=== PATIENT | female | born 1975 | race Caucasian/White ===

== ENCOUNTER 2017-04-07 22:21 | Emergency (ER) | payer MEDICAID, MEDICARE ==
[2017-04-07] MEDS ORDERED: Diazepam TAB(*) 2 MG PO ONE (23:19)
[2017-04-07] MEDS ORDERED: Ondansetron INJ* 2 MG/ML VIAL IV ONE (23:20)
[2017-04-07 23:52] LABS: Hematocrit 47 % (35-47); Hemoglobin 15.9 g/dl (12.0-16.0); Mean Corpuscular HGB Conc 34 g/dl (31-36); Mean Corpuscular Hemoglobin 29 pg (27-31); Mean Corpuscular Volume 86 fL (80-97); Mean Platelet Volume 8 um3 (7.4-10.4); Red Blood Count 5.54 10^6/ul (4.0-5.4); Red Cell Distribution Width 13 % (10.5-15)
[2017-04-08 00:07] LABS: Albumin 4.2 g/dL (3.2-5.2); BUN/Creatinine Ratio 12.4 (8-20); Calcium 9.7 mg/dL (8.6-10.3); Globulin 2.7 g/dL (2-4); Potassium 3.9 mmol/L (3.5-5.0); Total Bilirubin 0.4 mg/dL (0.2-1.0); Total Protein 6.9 g/dL (6.4-8.9)
[2017-04-08] MEDS ORDERED: Iohexol 300* (CONTRAST) 10 ML SDV IV ONE (00:15)
[2017-04-08 02:22] VITALS: BP 106/58
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
== END 2017-04-08 03:09 | disposition home or self-care (01) ==
LOC: ED 22:21
DX: R07.81 Pleurodynia (principal); V89.2XXA Person injured in unspecified motor-vehicle accident, traffic, initial encounter; Y93.9 Activity, unspecified; Y92.9 Unspecified place or not applicable
CPT/HCPCS: 36415; 70450; 71260; 72125; 74177; 80053; 85025; 96374; 99282; A9270-GY; J2405; Q9967

== ENCOUNTER 2017-07-20 15:24 | Emergency (ER) | payer MEDICARE, MEDICAID ==
[2017-07-20 15:35] VITALS: BP 99/83
--- NOTE | 2017-07-20 16:00 | UC ---
Skin Complaint HPI - HPI Summary HPI Summary: C/O Hives going on 2 weeks. Prednisone has helped a little. Got worse with getting the proper dose of the medications effexor and morphine. - History of Current Complaint Chief Complaint: UCSkin Time Seen by Provider: 07/20/17 15:50 Stated Complaint: HIVES ?: No Onset/Duration: Sudden Onset, Lasting Weeks - 2, Still Present Onset Severity: Moderate Current Severity: Moderate Pain Intensity: 10 Location: Diffuse Character: Hives, Redness Alleviating Factor(s): Nothing Associated Signs & Symptoms: Positive: Nausea, Chills, Rash. Negative: Diaphoresis, Weakness, Fever, Throat Tightening Related History: Recent change in medication - Allergy/Home Medications Allergies/Adverse Reactions: Allergies Allergy/AdvReac Type Severity Reaction Status Date / Time bupropion [From Wellbutrin] Allergy Hives Verified 07/20/17 15:39 ibuprofen Allergy Unknown Verified 07/20/17 15:39 Reaction Details Penicillins Allergy Unknown Verified 07/20/17 15:39 Reaction Details Sulfa (Sulfonamide Allergy Unknown Verified 07/20/17 15:39 Antibiotics) Reaction Details Home Medications: Home Medications Cetirizine* [ZyrTEC 10 MG TAB*] 10 mg PO DAILY 07/20/17 [History Confirmed 07/20] DULoxetine DR CAP* [Cymbalta CAP*] 30 - 60 mg PO BID 07/20/17 [History Confirmed 07/20/17] Docusate CAP* [Colace Cap*] 100 mg PO DAILY 07/20/17 [History Confirmed 07/20/17 ] Eletriptan HBr [Relpax] 1 dose PO SEE INSTRUCTIONS PRN 07/20/17 [History Confirmed 07/20/17] Furosemide TAB* [Lasix TAB*] 40 mg PO DAILY 07/20/17 [History Confirmed 07/20/17 ] Morphine Sulfate 15 mg PO SEE INSTRUCTIONS PRN 07/20/17 [History Confirmed 07/20] Morphine TAB Extended Rel(*) [Ms Contin(*)] 15 mg PO BID 07/20/17 [History Confirmed 07/20/17] Ondansetron ODT TAB* [Zofran 4 MG Odt TAB*] 4 mg PO Q6H PRN 07/20/17 [History Confirmed 07/20/17] Potassium Chlor TAB* [Potassium Chlor TAB 20 MEQ*] 20 meq PO DAILY 07/20/17 [ History Confirmed 07/20/17] Simethicone [Gas-X] 125 mg PO ONCE PRN 07/20/17 [History Confirmed 07/20/17] Topiramate [Topamax] 150 mg PO BID 07/20/17 [History Confirmed 07/20/17] Venlafaxine TAB (NF) [Effexor TAB (NF)] 100 mg PO BID 07/20/17 [History Confirmed 07/20/17] busPIRone TAB* [Buspar TAB *] 15 mg PO TID 07/20/17 [History Confirmed 07/20/17] predniSONE TAB* [Deltasone TAB*] 30 mg PO DAILY 07/20/17 [History Confirmed 05/08] Review of Systems Skin: Rash Is Patient Immunocompromised?: No All Other Systems Reviewed And Are Negative: Yes PMH/Surg Hx/FS Hx/Imm Hx - Additional Past Medical History Additional PMH: Chronic Pain Psychological History: Anxiety, Depression - Surgical History Surgical History: Yes Surgery Procedure, Year, and Place: Hysterectomy, bi- eye muscles, L ankle, T & A, hiatal hernia. surgery for pericardial effusion - Family History Known Family History: Positive: Hypertension - Social History Occupation: Disabled Lives: With Family Alcohol Use: None Substance Use Type: None, Prescribed Smoking Status (MU): Never Smoked Tobacco - Immunization History Most Recent Influenza Vaccination: Not the Season Physical Exam Triage Information Reviewed: Yes Appearance: No Pain Distress, Well-Nourished, Other: - Very anxious with pressured speech Vital Signs: Initial Vital Signs Temp 99.7 F 07/20/17 15:26 Pulse 108 07/20/17 15:26 Resp 16 07/20/17 15:26 BP 99/83 07/20/17 15:26 Pulse Ox 98 07/20/17 15:26 Vital Signs Reviewed: Yes Eyes: Positive: Conjunctiva Clear ENT: Positive: Pharynx normal, TMs normal Neck exam: Normal Respiratory Exam: Normal Cardiovascular Exam: Normal Musculoskeletal Exam: Normal Neurological Exam: Normal Psychological: Positive: Other: - very anxious Skin: Positive: rashes - diffuse erythematous papules, plaques with hives. Course/Dx - Differential Diagnoses - Skin Complaint Differential Diagnoses: Anaphylaxis, Angioedema, Drug Rash, Urticaria - Diagnoses Provider Diagnoses: Chronic urticaria Discharge - Sign-Out/Discharge Documenting (check all that apply): Discharge - Discharge Plan Condition: Stable Disposition: HOME Prescriptions: Famotidine [Heartburn Prevention] 20 mg PO BID #60 tablet Patient Education Materials: Urticaria (ED), Famotidine (By mouth) Referrals: Raya Dejesus MD [Primary Care Provider] - Additional Instructions: zyrtec 10mg in the evening. Arely (fexofenadine) 180-mg in the morning. Try to decrease the morphine. Just use the extended release. Avoid heat. Prednisone can make you hyper and make it difficult to sleep. Use the Pepcid instead of the zantac. See about trying to stop the duloxetine. - Billing Disposition and Condition Condition: STABLE Disposition: HOME
== END 2017-07-20 16:29 | disposition home or self-care (01) ==
LOC: UCCORT 15:24
DX: L50.8 Other urticaria (principal); Z88.6 Allergy status to analgesic agent; Z88.0 Allergy status to penicillin; Z88.2 Allergy status to sulfonamides
CPT/HCPCS: 99212; G0463

== ENCOUNTER 2017-09-02 18:06 | Emergency (ER) | payer MEDICARE, MEDICAID ==
[2017-09-02 19:15] VITALS: BP 95/76
--- NOTE | 2017-09-02 19:39 | UC ---
Skin Complaint HPI - HPI Summary HPI Summary: Pt c/o "itchy rash" on abdomen, that is worse at night. Pt reports that she has had rash X 4 months. Has tried antihistamines daily, zyrtec and zantac, been seen by PCP and by bonding agent, with no improvement. 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 - History of Current Complaint Chief Complaint: UCSkin Time Seen by Provider: 09/02/17 19:16 Stated Complaint: SKIN COMPLAINT Hx Obtained From: Patient ?: No Onset/Duration: Gradual Onset, Lasting Weeks - 12 Skin Exposure Onset/Duration: Weeks Ago Timing: Constant Onset Severity: Mild Current Severity: Mild Pain Intensity: 0 Location: Discrete - abdomen Character: Pruritus, Redness Aggravating Factor(s): Nothing Alleviating Factor(s): Nothing Associated Signs & Symptoms: Positive: Rash Related History: Possible Reaction to: Animal - Allergy/Home Medications Allergies/Adverse Reactions: Allergies Allergy/AdvReac Type Severity Reaction Status Date / Time bupropion [From Wellbutrin] Allergy Hives Verified 07/20/17 15:39 ibuprofen Allergy Unknown Verified 07/20/17 15:39 Reaction Details Penicillins Allergy Unknown Verified 07/20/17 15:39 Reaction Details Sulfa (Sulfonamide Allergy Unknown Verified 07/20/17 15:39 Antibiotics) Reaction Details Home Medications: Home Medications Hydrocodone/Acetaminophen [Vicodin 5-300 mg Tablet] 1 each PO Q6H 09/02/17 [ History Confirmed 09/02/17] Review of Systems Constitutional: Negative Skin: Rash Eyes: Negative ENT: Negative Respiratory: Negative Cardiovascular: Negative Gastrointestinal: Negative Genitourinary: Negative Motor: Negative Neurovascular: Negative Musculoskeletal: Negative Neurological: Negative Psychological: Negative Is Patient Immunocompromised?: No All Other Systems Reviewed And Are Negative: Yes PMH/Surg Hx/FS Hx/Imm Hx Previously Healthy: Yes Cardiovascular History: Other - pericardial effusion Other Cardiovascular History: pericardial effusion - Surgical History Surgical History: Yes Surgery Procedure, Year, and Place: Hysterectomy, bi- eye muscles, L ankle, T & A, hiatal hernia. surgery for pericardial effusion. breast lift and tummy tuck - Family History Known Family History: Positive: Hypertension - Social History Occupation: Employed Full-time Lives: With Family Alcohol Use: None Substance Use Type: None Smoking Status (MU): Never Smoked Tobacco - Immunization History Most Recent Influenza Vaccination: Not the Season Physical Exam Triage Information Reviewed: Yes Appearance: Well-Appearing Vital Signs: Initial Vital Signs Temp 99.8 F 09/02/17 19:06 Pulse 85 09/02/17 19:06 Resp 18 09/02/17 19:06 BP 95/76 09/02/17 19:06 Pulse Ox 100 09/02/17 19:06 Vital Signs Reviewed: Yes ENT: Positive: Hearing grossly normal Neck exam: Normal Respiratory: Positive: No respiratory distress Musculoskeletal Exam: Other Musculoskeletal: Positive: Other: - bilateral lower extremity weakness Neurological Exam: Normal Psychological Exam: Normal Skin: Positive: rashes Course/Dx - Differential Diagnoses - Skin Complaint Differential Diagnoses: Contact Dermatitis, Scabies - Diagnoses Provider Diagnoses: scabies. contact dermatitis Discharge - Sign-Out/Discharge Documenting (check all that apply): Discharge/Admit/Transfer - Discharge Plan Condition: Stable Disposition: HOME Prescriptions: Fluocinolone 0.025% CM(NF) [Synalar 0.025% CREAM(NF)] 1 applic .SEE ORDER DAILY #1 tube Permethrin 5% CREAM* 1 applic TOPICAL SEE INSTRUCTIONS #1 tube Patient Education Materials: Scabies (ED) Referrals: Ledy Spann NP [Primary Care Provider] - If Needed - Billing Disposition and Condition Condition: STABLE Disposition: HOME
== END 2017-09-02 19:51 | disposition home or self-care (01) ==
LOC: UCCORT 18:06
DX: B86 Scabies (principal); L25.9 Unspecified contact dermatitis, unspecified cause; Z88.6 Allergy status to analgesic agent; Z88.0 Allergy status to penicillin; Z88.2 Allergy status to sulfonamides; Z88.8 Allergy status to other drugs, medicaments and biological substances
CPT/HCPCS: 99212; G0463

== ENCOUNTER 2017-10-11 10:02 | Emergency (ER) | payer MEDICARE, MEDICAID ==
[2017-10-11 10:40] VITALS: BP 99/74
--- NOTE | 2017-10-11 11:06 | UC ---
Skin Complaint HPI - HPI Summary HPI Summary: slept on a sofa last night that she knows has mites on it from her 100 pet birds ---today of itchy rash - History of Current Complaint Chief Complaint: UCSkin Time Seen by Provider: 10/11/17 10:45 Stated Complaint: ALLERGIC REACTION SKIN COMPLAINT Hx Obtained From: Patient ?: No Onset/Duration: Sudden Onset, Lasting Days - 1 Timing: Constant Onset Severity: Moderate Current Severity: Moderate Pain Intensity: 0 Location: Diffuse Character: Pruritus, Hives Aggravating Factor(s): Nothing Alleviating Factor(s): Nothing Associated Signs & Symptoms: Positive: Rash Related History: Possible Reaction to: Insect - mites - Allergy/Home Medications Allergies/Adverse Reactions: Allergies Allergy/AdvReac Type Severity Reaction Status Date / Time bupropion [From Wellbutrin] Allergy Hives Verified 10/11/17 10:26 ibuprofen Allergy Unknown Verified 10/11/17 10:26 Reaction Details Penicillins Allergy Unknown Verified 10/11/17 10:26 Reaction Details Sulfa (Sulfonamide Allergy Unknown Verified 10/11/17 10:26 Antibiotics) Reaction Details "a ton of 'em [foods]" Allergy Unknown Uncoded 10/11/17 10:26 Reaction Details Home Medications: Home Medications Acetaminophen [Tylenol Arthritis] 650 - 1,300 mg PO Q8H PRN 10/11/17 [History Confirmed 10/11/17] Ascorbic Acid TAB* [Vitamin C TAB*] 1,000 mg PO DAILY 10/11/17 [History Confirmed 10/11/17] Cetirizine* [ZyrTEC 10 MG TAB*] 10 mg PO BID 10/11/17 [History Confirmed ] Cholecalciferol TAB* [Vitamin D TAB*] 400 unit PO DAILY 10/11/17 [History Confirmed 10/11/17] Cyanocobalamin TAB* [Vitamin B12 TAB*] 1,000 mcg PO DAILY 10/11/17 [History Confirmed 10/11/17] DULoxetine CAP* [Cymbalta CAP*] 30 mg PO QAM 10/11/17 [History Confirmed ] DULoxetine CAP* [Cymbalta CAP*] 60 mg PO BEDTIME 10/11/17 [History Confirmed 10/11/17] Diclofenac 1% GEL (NF) [Voltaren 1% GEL (NF)] 1 applic TOPICAL SEE INSTRUCTIONS PRN 10/11/17 [History Confirmed 10/11/17] Eletriptan 40 mg (Nf)* [Relpax (NF)] 40 mg PO SEE INSTRUCTIONS PRN 10/11/17 [ History Confirmed 10/11/17] Rubia 500 mg PO DAILY 10/11/17 [History Confirmed 10/11/17] Lactase [Lactaid] 3,000 unit PO SEE INSTRUCTIONS PRN 10/11/17 [History Confirmed 10/11/17] Lactobacillus Acidophilus [Acidophilus] 1 each PO DAILY 10/11/17 [History Confirmed 10/11/17] Magnesium Oxide TAB* [MagOx 400 TAB*] 400 mg PO DAILY 10/11/17 [History Confirmed 10/11/17] Morphine Sulfate [Morphine Sulfate ER] 15 mg PO BID 10/11/17 [History Confirmed 10/11/17] Ondansetron TAB* [Zofran 4 MG Tab*] 8 mg PO Q6H PRN 10/11/17 [History Confirmed 10/11/17] Ranitidine TAB (NF) [Zantac TAB (NF)] 150 mg PO BID 10/11/17 [History Confirmed 10/11/17] Simethicone [Gas-X] 125 mg PO SEE INSTRUCTIONS PRN 10/11/17 [History Confirmed 10/11/17] Topiramate TAB(*) [Topamax 100 mg tab] 100 mg PO QAM 10/11/17 [History Confirmed 10/11/17] Topiramate [Topamax] 200 mg PO BEDTIME 10/11/17 [History Confirmed 10/11/17] Turmeric/Turmeric Root Extract [Turmeric 500 mg Capsule] 1 each PO DAILY [History Confirmed 10/11/17] diPHENhydraMINE PO* [Benadryl PO 25 MG TAB*] 50 mg PO Q6H PRN 10/11/17 [History Confirmed 10/11/17] Review of Systems Constitutional: Negative Skin: Rash - raised individual papular Eyes: Negative ENT: Negative Respiratory: Negative Cardiovascular: Negative Gastrointestinal: Negative Genitourinary: Negative Motor: Negative Neurovascular: Negative Musculoskeletal: Negative Neurological: Negative Psychological: Negative Is Patient Immunocompromised?: No All Other Systems Reviewed And Are Negative: Yes PMH/Surg Hx/FS Hx/Imm Hx Previously Healthy: No - chronic back pain - Surgical History Surgical History: Yes Surgery Procedure, Year, and Place: Hysterectomy, bi- eye muscles, L ankle, T & A, hiatal hernia. surgery for pericardial effusion. breast lift and tummy tuck - Family History Known Family History: Positive: Hypertension - Social History Occupation: Disabled Lives: With Family Alcohol Use: None Substance Use Type: Prescribed Smoking Status (MU): Never Smoked Tobacco - Immunization History Most Recent Influenza Vaccination: Not the Season Physical Exam Triage Information Reviewed: Yes Appearance: Well-Appearing, No Pain Distress, Well-Nourished Vital Signs: Initial Vital Signs Temp 98.8 F 10/11/17 10:17 Pulse 94 10/11/17 10:17 Resp 16 10/11/17 10:17 BP 99/74 10/11/17 10:17 Pulse Ox 99 10/11/17 10:17 Vital Signs Reviewed: Yes Eye Exam: Normal Eyes: Positive: Conjunctiva Clear ENT Exam: Normal ENT: Positive: Normal ENT inspection, Hearing grossly normal. Negative: Trismus , Muffled voice, Hoarse voice, Sinus tenderness Dental Exam: Normal Neck exam: Normal Neck: Positive: Supple, Nontender Respiratory Exam: Normal Respiratory: Positive: Chest non-tender, No respiratory distress, No accessory muscle use Cardiovascular Exam: Normal Cardiovascular: Positive: RRR, Pulses Normal, Brisk Capillary Refill Musculoskeletal Exam: Normal Musculoskeletal: Positive: Strength Intact, ROM Intact, No Edema Neurological Exam: Normal Neurological: Positive: Alert, Muscle Tone Normal Psychological Exam: Normal Skin: Positive: rashes - itchy individual papula---diffuse Course/Dx - Course Course Of Treatment: similar a few weeks ago ---treated with permetherin with good effect---will treat with permetherin and folow with lidex---suggestions offed on how to get a free nsofa from the [facility] and free sites on face book , follow with pcp - Diagnoses Provider Diagnoses: scabies/mites Discharge - Sign-Out/Discharge Documenting (check all that apply): Discharge/Admit/Transfer - Discharge Plan Condition: Stable Disposition: HOME Prescriptions: Fluocinonide 0.05% CM (NF) [Lidex 0.05% CREAM (NF)] 1 applic TOPICAL BID #1 tube Permethrin 5% CREAM* 1 applic TOPICAL SEE INSTRUCTIONS #1 tube Patient Education Materials: Corticosteroids (On the skin), Scabies (ED), Itchy Skin (ED) Referrals: Ledy Spann NP [Primary Care Provider] - If Needed - Billing Disposition and Condition Condition: STABLE Disposition: Home
== END 2017-10-11 11:18 | disposition home or self-care (01) ==
LOC: UCCORT 10:02
DX: B86 Scabies (principal); B88.9 Infestation, unspecified; Z09 Encounter for follow-up examination after completed treatment for conditions other than malignant neoplasm; Z88.6 Allergy status to analgesic agent; Z88.0 Allergy status to penicillin; Z88.2 Allergy status to sulfonamides; Z88.8 Allergy status to other drugs, medicaments and biological substances
CPT/HCPCS: 99212; G0463

== ENCOUNTER 2018-01-21 18:42 | Emergency (ER) | payer MEDICARE, MEDICAID ==
--- OUTSIDE RECORDS SUMMARY | 2018-01-21 18:54 | XMS REPORT ---
:1975 External Reference #:[id number] Author Organization [facility] Address [address] [place] [address] [place] [address] Phone [phone] Care Team Providers Name Role Phone Ledy Spann NP Primary Care Physician Unavailable Payers Type Date Identification Numbers Payment Provider Subscriber Medicare Primary Effective: Policy Number: Medicare Edyta Singh 2006 [id number] PayID: [id number] [address] [place] [address] [place] Policy Number: [id number] Medicaid Edyta Singh Group Name: 1 1 [address] PayID: [id number] [place] [address] Problems Date Description Provider Status Onset: 12/08/2014 Migraine without aura Wing Claudio M.D. Active Social History Type Date Description Comments Marital Status Lives With Occupation Disabled Cigarette Use Never Smoked Cigarettes Cigars Never Smoked Cigars Pipe Never Smoked A Pipe Smokeless Tobacco Never Used Smokeless Tobacco ETOH Use Denies alcohol use Smoking Patient has never smoked Recreational Drug Use Denies Drug Use Daily Caffeine Consumes on average 3 cups of regular coffee per day Allergies, Adverse Reactions, Alerts Date Description Reaction Status Severity Comments 09/30/2013 Sulfa Antibiotics active 09/30/2013 Penicillin active 09/30/2013 Wellbutrin active 09/30/2013 Ibuprofen active 09/23/2017 Flovent active 09/23/2017 Pantoprazole Sodium active 09/23/2017 Beclomethasone active 09/23/2017 Whole Wheat Allergenic Extract active 09/23/2017 Tree Nuts active 09/23/2017 Soy Proteins active Medications Medication Date Status Form Strength Qnty SIG Indications Ordering Provider Ondansetron 09/30/ Active Tablets 8mg 90tabs 1 po tid Wing Barrientos 2013 Dispers prn nausea [place] Claudio Relpax 11/26/ Active Tablets 40mg 10tabs 1 tab by Wing Barrientos 2012 mouth twice González, a day as M.DChadwick needed max 2 days per week Topamax / Active Tablets 100mg 90tabs 1 by mouth Wing Barrientos 0000 in in the , and M.DhCadwick 2 every night at bedtime Tylenol / Active Tablets 325mg 2 to 4 tabs Unknown 0000 po prn Voltaren / Active Gel 1% as needed Unknown 0000 Epinephrine / Active Solution 0.3mg/0.3M 1 injection Unknown 0000 Auto-Injec L as needed t allergic reaction Cetirizine / Active Chewtabs 10mg 1 by mouth Unknown HCL 0000 every day Morphine / Active Caps ER 15mg 14caps take one Unknown Sulfate ER 0000 24HR tab by mouth every 12 hours Vitamin B 12 12/26/ Hx Lozenges 100mcg 100uni 1 po qd Wing Barrientos 2016 - ts González, 07/16/ MChadwickDChadwick 2017 Morphine 12/08/ Hx Solution 15mg/ml 1 po bid Wing Barrientos Sulfate (PF) 2014 - González, 12/23/ MChadwickDChadwick 2016 Zofran 09/30/ Hx Tablets 8mg 30tabs every 8 Wing Barrientos 2013 - hours as González, 10/19/ [place] 2013 Topamax 04/30/ Hx Tablets 50mg 60tabs 1 po bid Wing Barrientos 2013 - González, 09/30/ M.DChadwick 2013 Cymbalta / Hx Caps DR 60mg 90caps 1 by mouth Unknown 0000 - Part every day 2013 Iron / Hx Tablets 325(65Fe) 90tabs by mouth Unknown Supplement 0000 - mg every day 2013 Antacid / Hx Chewtabs 80-20mg 1 tab po Unknown 0000 - prn 2014 Clindamycin / Hx Capsules 150mg 28caps four times Unknown HCL 0000 - a day by 12/15/ mouth 2014 Cymbalta /00/ Hx Caps DR 60mg 90caps 1 by mouth Unknown 0000 - Part at bedtime 2017 Morphine 00/00/ Hx Tablets ER 15mg 1 tab po Unknown Sulfate ER 0000 - tid 2017 Morphine 00/00/ Hx Tablets 15mg 1 tab po Unknown Sulfate 0000 - bid 2017 Venlafaxine 00/ Hx Tablets 100mg TK 1 T PO Unknown HCL 0000 - bid 2017 Duloxetine / Hx Caps DR 30mg 1 cap po in Anjelica, HCL 0000 - Part am and 2 MD Raya 12/25/ in pm 2018 Buspirone HCL 00/ Hx Tablets 15mg TK 1 T PO Unknown 0000 - tid 2017 Colace 00/ Hx Capsules 100mg 1 tab po Unknown 0000 - bid 2017 Gas-X Extra / Hx Capsules 125mg two by Unknown Strength 0000 - mouth twice 07/30/ daily 2018 Zyrtec 00/ Hx Tablets 10mg 1 by mouth Unknown Allergy 0000 - every day 2017 Linzess 00/ Hx Capsules 72mcg 1 by mouth Unknown 0000 - every day 2017 Zantac 150 00/ Hx Tablets 150mg 1 by mouth Unknown Maximum 0000 - twice a day Strength 2017 Baclofen /00/ Hx Tablets 10mg take 1/2 Unknown 0000 - tab every 8 07/08/ hours as 2018 needed for muscle spasm Meloxicam 00/ Hx Tablets 15mg 1 by mouth Unknown 0000 - every day 2017 Hydrocodone 00/ Hx Tablets 10-300mg 1 tab every Unknown Bitartrate/Ac 0000 - 8 hours as etaminophen needed 2018 Vital Signs Date Vital Result Comment 01/01/2018 Height 60 inches 5'0" Weight 165.00 lb BP Systolic Sitting 108 mmHg BP Diastolic Sitting 60 mmHg Respiratory Rate 16 /min Pain Level 9 BMI (Body Mass Index) 32.2 kg/m2 09/23/2017 Height 60 inches 5'0" Weight 150.00 lb Heart Rate 90 /min BP Systolic Sitting 118 mmHg BP Diastolic Sitting 60 mmHg Respiratory Rate 16 /min Pain Level 0 BMI (Body Mass Index) 29.3 kg/m2 12/26/2016 Height 60 inches 5'0" Heart Rate 104 /min BP Systolic Sitting 94 mmHg BP Diastolic Sitting 64 mmHg O2 % BldC Oximetry 98 % 12/14/2015 Height 60 inches 5'0" Weight 150.00 lb Heart Rate 78 /min BP Systolic Sitting 92 mmHg BP Diastolic Sitting 60 mmHg BMI (Body Mass Index) 29.3 kg/m2 12/08/2014 Height 61 inches 5'1" Weight 143.00 lb Heart Rate 76 /min BP Systolic Sitting 98 mmHg BP Diastolic Sitting 86 mmHg BMI (Body Mass Index) 27.0 kg/m2 12/16/2013 Weight 160.00 lb Heart Rate 124 /min BP Systolic Sitting 116 mmHg BP Diastolic Sitting 68 mmHg Respiratory Rate 12 /min 10/20/2013 Height 60 inches 5'0" Weight 168.00 lb Heart Rate 80 /min BP Systolic Sitting 120 mmHg BP Diastolic Sitting 78 mmHg Respiratory Rate 16 /min BMI (Body Mass Index) 32.8 kg/m2 09/30/2013 Heart Rate 70 /min BP Systolic Sitting 124 mmHg BP Diastolic Sitting 80 mmHg Results Description No Information Procedures Description No Information Encounters Type Date Location Provider CPT E/M Dx Office Visit 09/23/2017 [facility], 56605 K05.10 3:30p [facility] [place] Office Visit 12/26/2016 [facility], 31406 G43.009 3:45p [facility] Office Visit 12/14/2015 [facility], 22298 G43.009 10:45a [facility] R53.83 Office Visit 12/08/2014 8:30a [facility]audio 17770 300.11 [facility] [place] 346.10 Office Visit 12/16/2013 11:45a [facility] 94289 346.10 [facility] [place] 300.11 724.2 729.5 Office Visit 10/20/2013 4:00p [facility] Fabio Claudio 61421 346.11 [facility] [place] 300.11 Office Visit 09/30/2013 9:30a Kerry Claudio, 22613 346.11 [facility] M.Jack Office Visit 11/26/2012 11:00a [facility], 44619 346.10 [facility] [place] 780.39 300.11 Office Visit 11/27/2011 11:00a [facility], 80604 346.10 [facility] [place] 780.39 Plan of Care Future Appointment(s):12/31/2018 3:45 pm - Wing Claudio M.D. at [facility]01/01/2018 - Wing Claudio M.D.G43.009 Migraine w/o aura, not intractable, w/o status migrainosusFollow up:1 YEARRecommendations:I recommend you contact your primary care provider for some routine blood work and also get an eye exam If your headaches do not improve in a few months call me and we may change your preventative
--- NOTE | 2018-01-21 20:07 | ED ---
Skin Complaint - HPI Summary HPI Summary: The pt is a 45 y/o female presenting to [facility] c/o a painful and pruritic lesion on the inner R thigh since today. The pain is rated 7/10 in severity. She notes weakness, spots on the outer R thigh and swelling on UE and LEs. She reports getting a cortisone shot today. 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 Onset/Duration: Still Present Current Severity: Severe Pain Intensity: 7 Pain Scale Used: 0-10 Numeric Skin Location: Diffuse - R inner thigh, Leg - RLE Character: Swelling, Pruritus, Painful - Allergy/Home Medications Allergies/Adverse Reactions: Allergies Allergy/AdvReac Type Severity Reaction Status Date / Time bupropion [From Wellbutrin] Allergy Hives Verified 10/11/17 10:26 ibuprofen Allergy Unknown Verified 10/11/17 10:26 Reaction Details Penicillins Allergy Unknown Verified 10/11/17 10:26 Reaction Details Sulfa (Sulfonamide Allergy Unknown Verified 10/11/17 10:26 Antibiotics) Reaction Details "a ton of 'em [foods]" Allergy Unknown Uncoded 10/11/17 10:26 Reaction Details PMH/Surg Hx/FS Hx/Imm Hx Previously Healthy: No Endocrine/Hematology History: Denies: Hx Diabetes Cardiovascular History: Denies: Hx Hypertension Respiratory History: Reports: Hx Asthma History: Denies: Hx Dialysis, Hx Renal Disease Sensory History: Denies: Hx Deafness Opthamlomology History: Denies: Hx Legally Blind - Cancer History Cancer Type, Location and Year: None reported - Surgical History Surgery Procedure, Year, and Place: Hysterectomy, bi- eye muscles, L ankle, T & A, hiatal hernia. surgery for pericardial effusion. breast lift and tummy tuck Infectious Disease History: No Infectious Disease History: Denies: Traveled Outside the [place] in Last 30 Days - Family History Known Family History: Positive: Hypertension - Social History Occupation: Disabled Lives: With Family Alcohol Use: None Substance Use Type: Reports: Prescribed Smoking Status (MU): Never Smoked Tobacco Review of Systems Constitutional: Other - Positive: Weakness Negative: Fever Positive: Other - Positive: Swelling of UE and LEs Positive: Other - Positive: Spots on the R thigh; pruritic lesion on the inner R thigh All Other Systems Reviewed And Are Negative: Yes Physical Exam - Summary Physical Exam Summary: Appearance: Well-appearing, Well-nourished, lying in bed comfortable Skin: Warm, dry, no obvious rash Eyes: sclera anicteric, no conjunctival pallor; Papilla lesion on the R inner thigh ; A 6cm round lesion on the medial thigh with mild erythema and no flactuance ; No warmth; Peripheral ring to it suggestive of a ringworm but is tender ENT: mucous membranes moist Neck: deferred Respiratory: No signs of respiratory distress Cardiovascular: Appears well perfused, pulses are nml Abdomen: deferred Musculoskeletal: Moving all 4 extremities without obvious discomfort Neurological: Awake and alert, mentation is normal, speech is fluent and appropriate Psychiatric: affect is normal, does not appear anxious or depressed Triage Information Reviewed: Yes Vital Signs On Initial Exam: Initial Vitals Temp Pulse Resp BP Pulse Ox 98.3 F 98 16 105/86 98 01/21/18 18:45 10 18:45 01/21/18 18:45 01/21/18 18:45 01/21/18 18:45 Vital Signs Reviewed: Yes Diagnostics - Vital Signs Vital Signs Temp Pulse Resp BP Pulse Ox 01/21/18 18:45 98.3 F 98 16 105/86 98 - Laboratory Lab Statement: Any lab studies that have been ordered have been reviewed, and results considered in the medical decision making process. Course/Dx - Course Course Of Treatment: A 42 year-old F presents to the ED with a CC of a painful and pruritic lesion on the inner R thigh since today. The pain is rated 7/10 in severity. She notes weakness, spots on the outer R thigh and swelling on UE and LEs. She reports getting a cortisone shot today. A physical exam revealed a papilla lesion on the R inner thigh; A 6m round lesion on the medial thigh with mild erythema and no flactuance ; No warmth; Peripheral ring to it suggestive of a ringworm but is tender. The patient will be discharged with a final Dx of cellulitis and tinea corporis. Pt is agreeable with this plan. Allergies noted - Diagnoses Provider Diagnoses: Tinea corporis, Cellulitis Discharge - Sign-Out/Discharge Documenting (check all that apply): Patient Departure - Dc - Discharge Plan Condition: Stable Disposition: HOME Prescriptions: Cephalexin CAP* [Keflex CAP*] 500 mg PO TID #21 cap Fluconazole 100 MG TAB* [Diflucan 100 MG TAB*] 100 mg PO WEEKLY #4 tab Patient Education Materials: Cellulitis (ED), Tinea Corporis (ED) Referrals: Ledy Spann, CONVERTER SUPERVISOR [Primary Care Provider] - 3 Days Additional Instructions: Return to ED for any new or worsening symptoms - Billing Disposition and Condition Condition: STABLE Disposition: Home - Attestation Statements Document Initiated by Scribe: Yes Documenting Scribe: Geeta Marshall Provider For Whom Karyna is Documenting (Include Credential): Dr. Judson Suarez MD Scribe Attestation: Geeta Crespo scribed for Dr. Judson Suarez MD on 01/22/18 at 1525. Scribe Documentation Reviewed: Yes Provider Attestation: The documentation as recorded by the Geeta cruz accurately reflects the service I personally performed and the decisions made by me, Dr. Judson Suarez MD
[2018-01-21] MEDS ORDERED: Cephalexin CAP* 500 MG PO ONE (20:15)
[2018-01-21 20:48] VITALS: BP 165/74
== END 2018-01-21 20:47 | disposition home or self-care (01) ==
LOC: ED 18:42
DX: B35.4 Tinea corporis (principal); L03.115 Cellulitis of right lower limb; Z88.8 Allergy status to other drugs, medicaments and biological substances; Z88.0 Allergy status to penicillin; Z88.3 Allergy status to other anti-infective agents
CPT/HCPCS: 99282; A9270-GY

== ENCOUNTER 2018-03-25 13:24 | Emergency (ER) | payer MEDICARE, MEDICAID ==
[2018-03-25] MEDS ORDERED: LORazepam INJ* 2 MG/ML 1 ML VIAL ONE (13:38)
--- NOTE | 2018-03-25 13:43 | ED ---
Complex/Multi-Sys Presentation - HPI Summary HPI Summary: Patient is a 42 y/o F presenting to ED with complaints of chest heaviness, SOB, AMS, and tingling in fingertips. is present in the room, states Sx onset today. In room while talking to , patient began to have a seizure. He states that patient has PMHx of psychogenic seizures, states that patient has been weaning herself off of topamax, prescribed by Dr. Triplett. states that seizures consist of patient having rapid eye movements. Episodes last around ten minutes, afterwards patient feels fatigued. He reports patient has been having increased amount of episodes recently. describes present seizure as similar to previous ones. He notes that patient had a pericardial effusion a few years ago and states that patient had noted that present SOB and chest heaviness were similar to this. Patient had a spinal stimulator placed recently. On triage, pain is denied. Home medications and allergies are reviewed. level 5 caveat, unresponsive - History Of Current Complaint Chief Complaint: EDSeizure Time Seen by Provider: 03/25/18 13:33 Hx Obtained From: Family/Cryptoanalysis Teacher - Hx From Patient Unobtainable Due To: Other - level 5 caveat, unresponsive Onset/Duration: Lasting Hours - onset today, Still Present Timing: Constant, Hours - onset today Severity Currently: None Location: Pain At: - heaviness at chest Character: Pressure - "heaviness" at chest Aggravating Factor(s): nothing Alleviating Factor(s): nothing Associated Signs And Symptoms: Positive: Decreased Responsiveness, Confusion, SOB, Chest Pain, Other - tingling in fingertips - Allergies/Home Medications Allergies/Adverse Reactions: Allergies Allergy/AdvReac Type Severity Reaction Status Date / Time bupropion [From Wellbutrin] Allergy Hives Verified 10/11/17 10:26 ibuprofen Allergy Unknown Verified 10/11/17 10:26 Reaction Details Penicillins Allergy Unknown Verified 10/11/17 10:26 Reaction Details Sulfa (Sulfonamide Allergy Unknown Verified 10/11/17 10:26 Antibiotics) Reaction Details "a ton of 'em [foods]" Allergy Unknown Uncoded 10/11/17 10:26 Reaction Details Home Medications: Home Medications Cetirizine* [ZyrTEC 10 MG TAB*] 10 mg PO QPM 03/25/18 [History Confirmed ] Cholecalciferol (Vitamin D3) [Vitamin D3] 1,000 unit PO DAILY 03/25/18 [History Confirmed 03/25/18] Cyclobenzaprine (NF) [Cyclobenzaprine 5 MG (NF)] 5 mg PO TID PRN 03/25/18 [ History Confirmed 03/25/18] Diclofenac 1% GEL (NF) [Voltaren 1% GEL (NF)] 1 applic TOPICAL BID 03/25/18 [ History Confirmed 03/25/18] Eletriptan (NF) [Relpax (Nf)] 20 mg PO DAILY PRN 03/25/18 [History Confirmed 09/05] Lactobacillus Acidophilus [Probiotic Acidophilus] 1 tab PO DAILY 03/25/18 [ History Confirmed 03/25/18] Meclizine TAB* [Antivert 12.5 TAB*] 25 mg PO TID PRN 03/25/18 [History Confirmed 03/25/18] Morphine TAB Extended Rel(*) [Ms Contin(*)] 15 mg PO BID 03/25/18 [History Confirmed 03/25/18] Turmeric/Turmeric Root Extract [Turmeric 500 mg Capsule] 1 cap PO DAILY [History Confirmed 03/25/18] Venlafaxine EXT RELEASE CAP* [Effexor Xr CAP*] 150 mg PO BID 03/25/18 [History Confirmed 03/25/18] PMH/Surg Hx/FS Hx/Imm Hx Endocrine/Hematology History: Denies: Hx Diabetes Cardiovascular History: Denies: Hx Hypertension Respiratory History: Reports: Hx Asthma History: Denies: Hx Dialysis, Hx Renal Disease Sensory History: Denies: Hx Legally Blind, Hx Deafness Opthamlomology History: Denies: Hx Legally Blind - Cancer History Cancer Type, Location and Year: None reported - Surgical History Surgery Procedure, Year, and Place: Hysterectomy, bi- eye muscles, L ankle, T & A, hiatal hernia. surgery for pericardial effusion. breast lift and tummy tuck Infectious Disease History: No Infectious Disease History: Denies: Traveled Outside the [place] in Last 30 Days - Family History Known Family History: Positive: Hypertension - Social History Alcohol Use: None Substance Use Type: Reports: Prescribed Smoking Status (MU): Never Smoked Tobacco Review of Systems - ROS Summary Review of Systems Summary: level 5 caveat, unresponsive Positive: Other - level 5 caveat, unresponsive Positive: Chest Pain - HEAVINESS Positive: Shortness Of Breath Neurological: Other - POSITIVE - SEIZURE, AMS , TINGLING IN FINGERTIPS All Other Systems Reviewed And Are Negative: No - Comments Additional Review of Systems Comments: level 5 caveat, unresponsive Physical Exam - Summary Physical Exam Summary: VITAL SIGNS: Reviewed. GENERAL: Patient is a well-developed and nourished female who is lying in the stretcher. Patient is not in any acute respiratory distress. HEAD AND FACE: No signs of trauma. No ecchymosis, hematomas or skull depressions. No sinus tenderness. EYES: Fasciculation of eyes, No injected conjunctiva, EARS: Hearing grossly intact. Ear canals and tympanic membranes are within normal limits. MOUTH: Oropharynx within normal limits. NECK: Supple, trachea is midline, no adenopathy, no JVD, no carotid bruit, no c- spine tenderness, neck with full ROM. CHEST: Symmetric, no tenderness at palpation LUNGS: Clear to auscultation bilaterally. No wheezing or crackles. CVS: Regular rate and rhythm, S1 and S2 present, no murmurs or gallops appreciated. ABDOMEN: Soft, non-tender. No signs of distention. No rebound no guarding, and no masses palpated. Bowel sounds are normal. EXTREMITIES: Flaccid, no edema, no cyanosis or clubbing. NEURO: Having psychogenic seizure, unresponsive level 5 caveat SKIN: Dry and warm Triage Information Reviewed: Yes Vital Signs On Initial Exam: Initial Vitals Temp Pulse Resp BP Pulse Ox 100.3 F 110 12 123/90 96 03/25/18 13:29 03/25/18 13:29 03/25/18 13:29 03/25/18 13:29 03/25/18 13:29 Vital Signs Reviewed: Yes Diagnostics - Vital Signs Vital Signs Temp Pulse Resp BP Pulse Ox 03/25/18 13:29 100.3 F 110 12 123/90 96 - Laboratory Result Diagrams: 03/25/18 13:50 03/25/18 13:50 Lab Statement: Any lab studies that have been ordered have been reviewed, and results considered in the medical decision making process. - Radiology CXR Radiology Interpretation Completed By: Radiologist Summary of Radiographic Findings: IMPRESSION: NO EVIDENCE FOR ACUTE DISEASE. THIS REPORT WAS REVIEWED BY ED PHYSICIAN. - EKG 1340 Cardiac Rate: Tachycardia - rate of 104 EKG Rhythm: Sinus Tachycardia EKG Comparison: No Significant Change - similar to EKG from 06/11/16 Summary of EKG Findings: EKG showed sinus tachycardia with rate of 104 BPM, no ST elevation, similar to EKG from 06/11/16 Complex Multi-Symp Course/Dx Assessment/Plan: Patient is a 42 y/o F presenting to ED with complaints of chest heaviness, SOB, AMS, and tingling in fingertips. is present in the room, states Sx onset today. In room while talking to , patient began to have a seizure. He states that patient has PMHx of psychogenic seizures , states that patient has been weaning herself off of topamax, prescribed by Dr. Triplett. states that seizures consist of patient having rapid eye movements. Episodes last around ten minutes, afterwards patient feels fatigued. He reports patient has been having increased amount of episodes recently. describes present seizure as similar to previous ones. He notes that patient had a pericardial effusion a few years ago and states that patient had noted that present SOB and chest heaviness were similar to this. Patient had a spinal stimulator placed recently. On triage, pain is denied. Home medications and allergies are reviewed. level 5 caveat, unresponsive. Blood work without any significant abnormality, except for glucose of 122 and lactic acid of 3.6. Chest x-ray impression: No evidence for acute disease. In the ED course, since that the patient had an episode of arm seizure activity therefore the patient was given 1 mg of Ativan. I discussed my physical exam, findings and test results with Dr. Sharma from neurology who ordered an EEG. Dr. Sharma reports that the patient has an abnormal EEG and that the patient may be having an epileptic seizures. Therefore she recommended for the patient to be given Depakote 500 mg now and give 1 tablet of 500 mg to take 2 hours later. She also requests for the patient to be discharged home with follow-up with Dr. Triplett tomorrow morning at his office. The patient also will start taking Topiramate and she has this medication at home. At this point the patient is hemodynamically stable alert and oriented 3. Patient will be discharged home with follow-up with PCP. - Diagnoses Provider Diagnoses: Seizure - Physician Notifications Discussed Care Of Patient With: Ana María R Cowdery Time Discussed With Above Provider: 15:54 Instructed by Provider To: Other - Patient's case was discussed with Dr. Wesley in ED, Dr. Wesley will evaluate patient. After evaluation and EEG of patient, Dr. Sharam reports that the patient has an abnormal EEG and that the patient may be having an epileptic seizures. Therefore she recommended for the patient to be given Depakote 500 mg now and give 1 tablet of 500 mg to take 2 hours later. She also requests for the patient to be discharged home with follow-up with Dr. Triplett tomorrow morning at his office. The patient also was started taking Topiramate and she has his medication at home. Discharge - Sign-Out/Discharge Documenting (check all that apply): Patient Departure - discharge - Discharge Plan Condition: Stable Disposition: HOME Patient Education Materials: Epilepsy (ED) Referrals: Wing Triplett MD [Medical Doctor] - As Soon As Possible Additional Instructions: RETURN TO ED FOR NEW OR WORSENING SYMPTOMS. FOLLOW UP WITH DR. TRIPLETT TOMORROW AT 9:00 AM - Billing Disposition and Condition Condition: STABLE Disposition: Home - Attestation Statements Document Initiated by Rajniibe: Yes Documenting Scribe: BLAS ALBERT Provider For Whom Karyna is Documenting (Include Credential): NEWTON CANTU MD Scribe Attestation: BLAS Crespo scribed for NEWTON CANTU MD on 03/26/18 at 2810. Scribe Documentation Reviewed: Yes Provider Attestation: The documentation as recorded by the BLAS cruz accurately reflects the service I personally performed and the decisions made by , NEWTON CANTU MD Status of Scribe Document: Viewed
[2018-03-25 13:57] LABS: ABS Basophils 0 10^3/ul (0-0.2); ABS Eosinophils 0 10^3/ul (0-0.6); ABS Lymphocytes 2.1 10^3/ul (1.0-4.8); ABS Monocytes 0.7 10^3/ul (0-0.8); ABS Neutrophils 6.4 10^3/ul (1.5-7.7); ABS Nucleated RBC 0 10^3/ul; Eosinophil % 0.1 %; Hematocrit 43 % (35-47); Hemoglobin 14.5 g/dl (12.0-16.0); Lymphocyte % 22.7 %; Mean Corpuscular HGB Conc 34 g/dl (31-36); Mean Corpuscular Hemoglobin 29 pg (27-31); Mean Corpuscular Volume 86 fL (80-97); Mean Platelet Volume 8.2 fL (7.4-10.4); Nucleated Red Blood Cells % 0.1; Platelet Count 251 10^3/ul (150-450); Red Blood Count 5.06 10^6/ul (4.00-5.40); Red Cell Distribution Width 14 % (10.5-15); White Blood Count 9.3 10^3/ul (3.5-10.8)
[2018-03-25] MEDS ORDERED: LORazepam INJ* 2 MG/ML 1 ML VIAL IM ONE (14:00)
[2018-03-25 14:14] LABS: INR 0.89 (0.77-1.02)
--- OUTSIDE RECORDS SUMMARY | 2018-03-25 14:20 | XMS REPORT ---
:1975 External Reference #:[id number] Author Organization [facility] Address [address], [address] [place] [address] Phone [phone] Care Team Providers Name Role Phone Ledy Spann, PNPLEIGHANN, OUTDOOR EMERGENCY CARE TECHNICIAN, Ibclc Care Team Information Junior Recruiter Unavailable Ledy Spann, ELBERT, OUTDOOR EMERGENCY CARE TECHNICIAN, Ibclc Primary Care Physician Unavailable Payers Type Date Identification Numbers Payment Provider Subscriber Medicare Primary Policy Number: [id number] Medicare Edyta Singh PayID: [id number] [address] [place] [address] Medicaid Policy Number: [id number] Medicaid Edyta Singh PayID: [id number] [address] [place] [address] Problems Date Description Provider Status Onset: 03/05/2016 Anxiety state Raya Caballero M.D. Active Onset: 03/05/2016 Epilepsy Raya Caballero M.D. Active Onset: 03/05/2016 Low back pain Raya Caballero M.D. Active Onset: 03/05/2016 Fibromyalgia Raya Caballero M.D. Active Onset: 03/19/2016 Moderate recurrent major Raya Caballero M.D. Active depression Onset: 03/19/2016 Insomnia Raya Caballero M.D. Active Onset: 07/22/2016 Dyspnea Huseyin Ware M.D., Active FACC Onset: 07/22/2016 Acute pericarditis associated Huseyin Ware M.D., Active with another disorder FACC Onset: 01/13/2017 Drug-induced constipation Margy Ventura MD Active Onset: 07/09/2017 Urticaria Raya Caballero M.D. Active Onset: 08/08/2017 Complex regional pain syndrome Ledy Spann, PNP-BC, OUTDOOR EMERGENCY CARE TECHNICIAN, Active Ibclc Onset: 01/16/2018 Visual disturbance Margy Ventura MD Active Onset: 01/16/2018 Contact dermatitis Margy Ventura MD Active Onset: 01/16/2018 Vertigo of central origin Margy Ventura MD Active Family History Date Family Member(s) Problem(s) Comments : (age 54 Father due to Brain Years) Hemorrhage Mother Lupus Mother varicose veins Mother Hypertension Siblings 2 First Sister Alive Twin Sister First Sister Glaucoma : (age 78 Grandfather due to Heart Disease Years) Grandmother Cataracts Grandmother due to Hypertension () : (age 91 Grandmother due to Congestive Years) Heart Failure Grandmother Glaucoma Social History Type Date Description Comments Marital Status Lives With Diet Vegetarian Pets Bird Pets several cats Pets 1 dog 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 Hobbies birds Cigarette Use Never Smoked Cigarettes ETOH Use Denies alcohol use Smoking Patient has never smoked Recreational Drug Use Sporadically uses Marijuana Daily Caffeine Patient consumes minimal amounts of caffeine Allergies, Adverse Reactions, Alerts Date Description Reaction Status Severity Comments 03/01/2016 Flovent active 03/01/2016 Ibuprofen GI upset active Moderate not allergic 03/01/2016 Penicillin active 03/01/2016 Sulfa Drugs active 03/01/2016 Wellbutrin active 12/12/2016 Pantoprazole active 12/12/2016 Beclomethasone active 08/05/2017 Wheat active 08/05/2017 Tree Nuts active 08/05/2017 Soy Proteins active 11/05/2017 Dairy active Medications Medication Date Status Form Strength Qnty SIG Indications Ordering Provider Cyclobenzaprine 03/11 Active Tablets 5mg 21tab 1 tab by CLIVE Morton s mouth MD Glen three times a day as needed Meclizine HCL 01/16 Active Tablets 25mg 14tab 1/2 to 1 H81.42 Lorenzo, /2017 s tabs by MD Margy mouth 3 times a day as needed vertigo Zantac 150 08/06 Active Tablets 150mg 1 po as L50.8 Maria Ines, Maximum Strength needed for mattie Villafana PNP-BC, OUTDOOR EMERGENCY CARE TECHNICIAN, Ibclc Zofran 12/12 Active Tablets 8mg 30tab 1 Tabl Maria Ines s Every 8 Ledy, Hours as PNP-BC, Needed OUTDOOR EMERGENCY CARE TECHNICIAN, Ibclc Morphine Sulfate Active Tablets ER 15mg sif 1 po Unknown ER / bid Effexor XR Active Caps ER 24HR 150mg 1 po bid Unknown Voltaren Active Gel 1% Unknown Relpax Active Tablets 20mg take 1 Unknown tablet as needed migraine headache may repeat dose in 2 hours if needed. Magnesium Active Tablets 1 by mouth Unknown / every day Turmeric With Active 1 po qd Unknown Rubia Probiotic Active Capsules 1 by mouth Unknown / every day Vitamin B-12 Active Tablets 1 by mouth Unknown / every day Vitamin C Active Tablets 1 by mouth Unknown /0000 every day Vitamin D3 Active Capsules 1000Unit 1 by mouth Unknown /0000 every day Zyrtec Allergy Active Tablets 10mg 1 tab by Unknown /0000 mouth every night Eletriptan Active Tablets 40mg TK 1 T PO Unknown Hydrobromide bid as Needed. Max 2 Days Q WK Venlafaxine HCL 02/19 Hx Tablets ER 150mg 1 po bid Maria Ines, 24HR Asael Villafana-BC, 02/19 OUTDOOR EMERGENCY CARE TECHNICIAN Ibclc Venlafaxine HCL 01/28 Hx Tablets 50mg 120ta 2 tabs po Maria Ines bs bid Asael Villafana PNP-BC, 02/19 OUTDOOR EMERGENCY CARE TECHNICIAN Ibclc Mupirocin 01/16 Hx Ointment 2% 22gm apply to L30.9 Lorenzo, affected MD Margy - area 3 02/10 times a day as needed Betamethasone 01/16 Hx Cream 0.05% 45gm apply to Lorenzo, Dipropionate affected MD Margy - areas at 01/16 bedtime, may use 2x/day if needed Betamethasone 01/16 Hx Cream 0.1% 15gm apply to Lorenzo, Valerate affected MD Margy - areas 02/10 3x/day as needed; okay to take with flovent allergy Venlafaxine HCL 12/10 Hx Tablets 100mg 180ta 1 by mouth Maria Ines bs bid Ledy, - PNP-BC, 01/28 OUTDOOR EMERGENCY CARE TECHNICIAN Ibclc Buspirone HCL 10/15 Hx Tablets 15mg 60tab take one s tablet by Ledy, - mouth four PNP-BC, 01/16 times a OUTDOOR EMERGENCY CARE TECHNICIAN day as Ibclc needed Venlafaxine HCL 10/01 Hx Tablets 50mg 180ta 1 Tab PO F33.1 Anjelica bs bid Asael Dos Santos M.D. 11/05 Folic Acid 09/29 Hx Tablets 800mcg 90tab 1 po qday s Ledy, - PNP-BC, 01/16 OUTDOOR EMERGENCY CARE TECHNICIAN Ibclc Permethrin 09/16 Hx Cream 5% 60gm apply to body and Ledy, - wash off PNP-BC, 11/05 after 12 hours. Ibclc Prednisone 09/12 Hx Tablets 10mg QS 5 tabs today, Ledy, - then 4 PNP-BC, 09/17 tabs [facility] tomorrow, Ibclc 3 tabs day 3, 2 tabs day 4, and 1 tab day 5 Triamcinolone 09/04 Hx Ointment 0.025% 15gm apply bid Maria Ines, as needed Ledy, - PNP-BC, 01/16 Ibclc Epinephrine 08/27 Hx Solution 0.3mg/0.3 1unit as needed Auto-Inject ML s for Ledy, - allergic PNP-BC, 02/19 reactions OUTDOOR EMERGENCY CARE TECHNICIAN Ibclc Baclofen 08/05 Hx Tablets 10mg 180ta 1 by mouth Pomann, bs every 8 Israel, - hours as M.D. 08/06 needed for muscle spasms Meloxicam 08/05 Hx Tablets 15mg 90tab 1 by mouth Pom s every day Israel - c food M.D. 08/06 Epipen 2-Danielito 07/16 Hx Solution 0.3mg/0.3 2unit use as Auto-Inject ML s directed Raya, - as needed M.D. 08/27 for allergic reaction Prednisone 07/16 Hx Tablets 10mg 36tab take 5 s tabs daily Raya, - x 3 days, M.D. 07/25 4 tabs x 2 days, 3 tabs x 2 days, 2 tabs x 2 days, 1 tab x 3 days, total 12 days Prednisone 07/13 Hx Tablets 50mg 4tabs 1 po q am until gone MD Margy - 07/16 Cipro 06/20 Hx Tablets 250mg 6tabs 250 mg by Anjelica, mouth Raya, - every 12 M.D. 07/09 hours x 3 days Tylenol 06/17 Hx Capsules 325mg 60cap 2 tab by Anjelica s mouth q 4 Raya, - hours M.D. 08/05 Azithromycin 06/10 Hx Tablets 250mg 6tabs 1 tab take Tavares15.9 Anjelica 2 tabs x Raya, - daily days M.D. 06/17 then 1 4 days Prednisone 06/10 Hx Tablets 50mg 5tabs 1 tab by J15.9 Anjelica mouth Raya, - every day M.D. 06/17 for 5 days, has used before without adverse effects Guaifenesin 06/10 Hx Tablets 400mg 30tab 1 tab by J15.9 Anjelica, s mouth Raya, - every 4 M.D. 08/05 hours needed cough Oseltamivir 06/02 Hx Capsules 75mg 10cap 1 po bid R50.9 Maria Ines, Phosphate s for 5 days Ledy, - PNP-BC, 06/07 OUTDOOR EMERGENCY CARE TECHNICIAN Ibclc Potassium 05/14 Hx Packet 20Meq 1 dose by E87.6 Anjelica, Chloride mouth once Raya, - a day M.D. 05/14 Potassium 05/14 Hx Tablets ER 20Meq 90tab 1 by mouth E87.6 Anjelica, Chloride ER s every day Raya, - on days M.D. 08/05 taking lasix Potassium 03/25 Hx Tablets ER 20Meq 60tab 2 By Mouth E87.6 Anjelica, Chloride ER /2016 s Every Day Raya, - M.D. 05/14 Potassium 03/20 Hx Tablets ER 10Meq 90tab 1 by mouth E87.6 Anjelica, Chloride ER /2016 s every day Raya, - M.D. 03/25 Potassium 03/18 Hx Tablets ER 20Meq 20tab 1 by mouth Anjelica, Chloride Mony ER /2016 s qid x 5 Raya, - days M.D. 03/20 Furosemide 02/19 Hx Tablets 40mg 30tab 1 By Mouth Anjelica, /2016 s Every Day Raya, - M.D. 08/05 Polyethylene 02/13 Hx Powder 3350NF 527gm 17 g by Anjelica, Glycol 3350 mouth Raya, - every day M.D. 08/05 until normal bms Furosemide 02/13 Hx Tablets 20mg 30tab 1 By Mouth Anjelica, s Every Day Raya, - M.D. 02/19 Ciprofloxacin 01/15 Hx Tablets 250mg 6tabs 1 tab by Anjelica, HCL mouth q12 Raya, - x 3 days M.D. 03/14 Metamucil 01/13 Hx Capsules 0.52gm 2 Caps Lorenzo, 2X/Day MD Margy - 03/18 Linzess 01/01 Hx Capsules 290mcg 30cap Administer s at least Raya, - 30 minutes M.D. 03/18 before the first meal of the day on an empty stomach Amitiza 01/01 Hx Capsules 24mcg 60cap take 1 s capsule by Raya, - mouth two M.D. 01/13 times a day Gasx 12/12 Hx 1 qd , Raya, - M.D. 07/25 Venlafaxine HCL 12/12 Hx Tablets 100mg 60tab 1 By Mouth Anjelica, s Twice A Raya, - Day M.D. 08/06 Glycerin Adult 11/22 Hx Suppository 2gm 30uni 1 , ts suppositor Raya, - y rectally M.D. 12/12 daily until regular BMs Enema Mineral 11/22 Hx Enema 133ml 133 mL as Anjelica, a single Raya, - dose M.D. 12/12 Senna 11/21 Hx Tablets 8.6mg 30tab 1 by mouth Anjelica, s @ at Raya, - bedtime M.D. 11/22 Venlafaxine HCL 11/12 Hx Tablets 50mg 60tab 1 Tab PO Anjelica, s bid Raya, - M.D. 12/12 Venlafaxine HCL 11/08 Hx Tablets 25mg 60tab Take 1 Tab Anjelica, s By Mouth Raya, - Twice A M.D. Venlafaxine HCL 11/05 Hx Tablets ER 37.5mg 30tab 1 Tab By Anjelica, 24HR s Mouth Raya, - Every M.D. 11/08 Diazepam 08/19 Hx Tablets 5mg 6tabs 1 by mouth Lorenzo, 1 hour MD Margy - before 09/10 flying; August repeat after 30 min. if needed Reference #: [id number] Symbicort 06/28 Hx Aerosol 80-4.5mcg 13.8u 2 puffs R06.02 Anjelica, /Act nits inhaled Raya, - twice a M.D. Montelukast 06/28 Hx Tablets 10mg 30tab 1 By Mouth R06.02 Anjelica, s Every Day Raya, - M.D. 07/10 Azithromycin 06/19 Hx Tablets 250mg 6tabs 1 tab take , 2 tabs x Raya, - daily days M.D. 06/28 then 1 for 4 days Prednisone 06/19 Hx Tablets 50mg 5tabs 1 tab by Anjelica, mouth Raya, - every day M.D. 06/28 for days, patient reports she has taken in the past without symptoms Buspirone HCL 04/05 Hx Tablets 10mg 1 by mouth F41.9 , Raya, - M.D. 04/05 Buspirone HCL 04/05 Hx Tablets 15mg 90tab 1/2 tab po F41.9 , s qod for 2 Raya, - more times M.D. 08/27 and d/c Ketoconazole 03/19 Hx Cream 2% 60gm apply to B37.2 affected Raya, - area once M.D. 07/10 daily, not use for more than 2 weeks Duloxetine HCL 03/[address] Boland 30mg 30cap Take One F33.1 s Capsule By Raya, - Mouth M.D. 08/05 Every With 60MG To Total 90MG/Day Topiramate 03/05 Hx Tablets 100mg 30tab 1.5 Tabs G40.909 s Twice A Raya, - Day M.D. 08/06 Morphine Sulfate 03/05 Hx Solution 20mg/ml 50ml 1 Tab , (Concentrate) Twice A Raya, - Day M.D. 07/16 Stool Softener 03/05 Hx Capsules 100mg 60cap 1 by mouth s twice a Raya, - day as M.D. 08/05 Allergy 4 Hour 03/05 Hx Tablets 4mg Raya - M.DChadwick 03/05 03/05 Hx Tablets 14-0.4mg 1 by mouth Anjelica, every day Asael Dos Santos.Jack 12/12 Buspirone HCL 03/05 Hx Tablets 7.5mg 120ta 1 Tab By F41.9 bs Mouth qid Asael Dos Santos M.D. 04/05 W09-Opgppd Hx Chewtabs 1mg 1 tabl by Unknown /0000 mouth - every day 07/10 Cetirizine HCL Hx Tablets 10mg 1 by mouth Unknown /0000 every day - 02/[address] Boland 60mg 30cap take one F33.1 Anjelica, s cap by Raya, - mouth M.D. 08/05 daily Ventolin HFA Hx Aerosol 108(90Bas 1-2 puffs J45.20 Unknown /0000 e) every 4-6 - mcg/Act hours as 07/10 Doxycycline 00 Hx Tablets 100mg 1 tab po Unknown Hyclate /0000 bid - 09/06 Morphine Sulfate Hx Tablets 7.5mg 1 tab po Unknown /0000 as needed - max 2 per Morphine Sulfate Hx Tablets ER 15mg 1 tab po Unknown ER /0000 bid - 08/05 Voltaren Hx Gel 1% Unknown / - 08/05 Cetirizine HCL Hx Tablets 10mg TK 1 T PO Unknown / qpm - 08/06 Topamax Hx Tablets 100mg 1 tab qam Unknown / 2 tabs qhs - 03/16 Hydrocodone-Acet Hx Tablets 10-325mg Unknown aminophen / - 01/16 Duloxetine HCL Hx Caps Part 30mg 90cap 1 By Mouth M79.7 Maria Ines , /0000 s Every In [place], - The PNP-, 11/05 Morning OUTDOOR EMERGENCY CARE TECHNICIAN, Ibclc F41.9 F33.1 Eletriptan - Hx Tablets 40mg González, Hydrobromide 02/19/2018 MD Wing Voltaren - Hx Gel 1% Unknown 01/19/2018 Duloxetine HCL - Hx Caps DR 60mg 90ca Take One Cap MCarrie. Raya Caballero, 11/05/2017 Part ps By Mouth Every 7 M.D. Daily, Is Trying Taper Currently, Take as Instructed F41.9 F33.1 Immunizations CPT Code Status Date Vaccine Lot # [id number] Refused 02/16/2018 Influenza Vaccine (Fluzone) Age 3 And Older [id number] Refused 03/05/2016 Influenza Vaccine (Fluzone) Age 3 And Older Vital Signs Date Vital Result Comment 03/16/2018 BP Systolic Sitting Left Arm 120 mmHg BP Diastolic Sitting Left Arm 62 mmHg Body Temperature 99.9 F Heart Rate 167 /min O2 % BldC Oximetry 97 % 02/24/2018 BP Systolic Sitting Left Arm 104 mmHg BP Diastolic Sitting Left Arm 64 mmHg 02/10/2018 BP Systolic Sitting Right Arm 116 mmHg BP Diastolic Sitting Right Arm 72 mmHg Body Temperature 98.0 F Heart Rate 114 /min Height 61 inches 5'1" Vincent body weight in kilograms 48 01/16/2018 BP Systolic 120 mmHg BP Diastolic 76 mmHg Body Temperature 99.3 F Heart Rate 114 /min Respiratory Rate 18 /min O2 % BldC Oximetry 98 % 11/05/2017 BP Systolic Sitting Left Arm 104 mmHg BP Diastolic Sitting Left Arm 64 mmHg Body Temperature 99.1 F Heart Rate 105 /min O2 % BldC Oximetry 98 % 10/01/2017 BP Systolic Sitting Right Arm 106 mmHg BP Diastolic Sitting Right Arm 76 mmHg Body Temperature 100.2 F Heart Rate 112 /min Height 63 inches 5'3" Vincent body weight in kilograms 52 08/27/2017 BP Systolic 122 mmHg BP Diastolic 76 mmHg Body Temperature 99.3 F Heart Rate 99 /min Respiratory Rate 17 /min Height 63 inches 5'3" Weight 150.00 lb per patient BMI (Body Mass Index) 26.6 kg/m2 BSA (Body Surface Area) 1.71 m2 Vincent body weight in kilograms 52 O2 % BldC Oximetry 97 % 08/18/2017 BP Systolic Sitting Right Arm 105 mmHg BP Diastolic Sitting Right Arm 76 mmHg Body Temperature 99.6 F Heart Rate 108 /min Respiratory Rate 17 /min Height 63 inches 5'3" Vincent body weight in kilograms 52 08/06/2017 BP Systolic Sitting Right Arm 118 mmHg BP Diastolic Sitting Right Arm 70 mmHg Body Temperature 99.2 F Height 63 inches 5'3" Vincent body weight in kilograms 52 08/05/2017 BP Systolic Sitting Left Arm 117 mmHg BP Diastolic Sitting Left Arm 89 mmHg Body Temperature 99.6 F Heart Rate 99 /min Weight 150.00 lb reported O2 % BldC Oximetry 97 % Ra Pain Level 5 07/09/2017 BP Systolic Sitting Left Arm 102 mmHg BP Diastolic Sitting Left Arm 62 mmHg Height 62 inches 5'2" Vincent body weight in kilograms 50 06/17/2017 BP Systolic Sitting Left Arm 100 mmHg BP Diastolic Sitting Left Arm 64 mmHg Body Temperature 98.8 F Height 62 inches 5'2" Vincent body weight in kilograms 50 06/10/2017 BP Systolic Sitting Left Arm 116 mmHg BP Diastolic Sitting Left Arm 74 mmHg Heart Rate 106 /min Respiratory Rate 20 /min O2 % BldC Oximetry 98 % 06/02/2017 BP Systolic 118 mmHg BP Diastolic 80 mmHg Body Temperature 99.9 F Heart Rate 111 /min Respiratory Rate 19 /min Height 65.6 inches 5'5.60" Vincent body weight in kilograms 58 O2 % BldC Oximetry 97 % 05/14/2017 BP Systolic Sitting Left Arm 116 mmHg BP Diastolic Sitting Left Arm 68 mmHg Height 65.6 inches 5'5.60" Vincent body weight in kilograms 58 04/23/2017 BP Systolic Sitting Left Arm 122 mmHg BP Diastolic Sitting Left Arm 72 mmHg Height 65.6 inches 5'5.60" Vincent body weight in kilograms 58 03/25/2017 BP Systolic Sitting Left Arm 122 mmHg BP Diastolic Sitting Left Arm 60 mmHg Body Temperature 98.6 F Heart Rate 96 /min O2 % BldC Oximetry 99 % 03/20/2017 BP Systolic Sitting Right Arm 98 mmHg BP Diastolic Sitting Right Arm 70 mmHg Body Temperature 98.1 F 03/18/2017 BP Systolic 118 mmHg BP Diastolic 82 mmHg Body Temperature 98.9 F Heart Rate 119 /min Height 65.6 inches 5'5.60" Vincent body weight in kilograms 58 O2 % BldC Oximetry 95 % 01/13/2017 BP Systolic Sitting Left Arm 108 mmHg BP Diastolic Sitting Left Arm 70 mmHg Body Temperature 98.9 F Height 65.6 inches 5'5.60" Vincent body weight in kilograms 58 12/12/2016 BP Systolic Sitting Left Arm 106 mmHg BP Diastolic Sitting Left Arm 68 mmHg Height 65.6 inches 5'5.60" Vincent body weight in kilograms 58 09/10/2016 BP Systolic Sitting Left Arm 98 mmHg BP Diastolic Sitting Left Arm 52 mmHg Height 60.6 inches 5'0.60" Vincent body weight in kilograms 47 07/22/2016 BP Systolic Sitting Left Arm 92 mmHg BP Diastolic Sitting Left Arm 68 mmHg Heart Rate 80 /min Respiratory Rate 16 /min Height 60 inches 5'0" Weight 150.00 lb BMI (Body Mass Index) 29.3 kg/m2 BSA (Body Surface Area) 1.65 m2 Vincent body weight in kilograms 45 07/16/2016 BP Systolic Sitting Right Arm 106 mmHg BP Diastolic Sitting Right Arm 60 mmHg Body Temperature 99.5 F Heart Rate 84 /min Respiratory Rate 16 /min 07/10/2016 BP Systolic Sitting Right Arm 112 mmHg BP Diastolic Sitting Right Arm 64 mmHg Body Temperature 99.4 F Heart Rate 94 /min Height 60 inches 5'0" Vincent body weight in kilograms 45 O2 % BldC Oximetry 96 % 06/28/2016 BP Systolic 98 mmHg BP Diastolic 78 mmHg Body Temperature 99.5 F Heart Rate 107 /min Respiratory Rate 20 /min Height 60 inches 5'0" O2 % BldC Oximetry 96 % 06/18/2016 BP Systolic 96 mmHg BP Diastolic 80 mmHg Body Temperature 99.6 F Heart Rate 99 /min Respiratory Rate 16 /min Height 60 inches 5'0" Vincent body weight in kilograms 45 O2 % BldC Oximetry 97 % 04/05/2016 BP Systolic 108 mmHg BP Diastolic 78 mmHg Body Temperature 100.0 F Heart Rate 113 /min Respiratory Rate 18 /min O2 % BldC Oximetry 100 % 03/19/2016 BP Systolic 102 mmHg BP Diastolic 74 mmHg Body Temperature 99.7 F Heart Rate 104 /min Height 60.5 inches 5'0.50" Weight 158.00 lb BMI (Body Mass Index) 30.3 kg/m2 BSA (Body Surface Area) 1.70 m2 Vincent body weight in kilograms 47 O2 % BldC Oximetry 97 % 03/05/2016 BP Systolic 102 mmHg BP Diastolic 78 mmHg Heart Rate 98 /min Respiratory Rate 16 /min Height 61.5 inches 5'1.50" Weight 159.00 lb BMI (Body Mass Index) 29.6 kg/m2 BSA (Body Surface Area) 1.72 m2 Vincent body weight in kilograms 49 Results Test Date Test Result H/L Range Note Lymphocytes/leuk NFr 01/14/2018 Lymphocytes/leuk NFr 27.0 20.0-42.0 Bld Auto Bld Auto Monocytes/leuk NFr 01/14/2018 Monocytes/leuk NFr 8.0 4.3-13.2 Bld Auto Bld Auto Neutrophils # Bld 01/14/2018 Neutrophils # Bld 6.78 1.8-7.0 Auto Auto Neutrophils/leuk NFr 01/14/2018 Neutrophils/leuk NFr 64.6 40.4-72.8 Bld Auto Bld Auto Potassium SerPl-sCnc 01/14/2018 Potassium SerPl-sCnc 4.0 3.5-5.1 RDW RBC Auto 01/14/2018 RDW RBC Auto 42.9 3-47 RDW RBC Auto-Rto 01/14/2018 RDW RBC Auto-Rto 13.4 11.7-14.4 Serum carbon dioxide 01/14/2018 Serum carbon dioxide 24 21-32 measurement measurement Serum or plasma C 01/14/2018 Serum or plasma C 5.5 High <3.0 reactive protein reactive protein measurement (ma measurement (mass/volume) Serum or plasma 01/14/2018 Serum or plasma 9.8 8.5-10.1 calcium measurement calcium measurement (mass/volume) (mass/volume) Serum or plasma 01/14/2018 Serum or plasma 0.8 0.6-1.3 creatinine creatinine measurement measurement (mass/volum (mass/volume) Serum or plasma 01/14/2018 Serum or plasma 80 74-106 glucose measurement glucose measurement (mass/volume) (mass/volume) Serum or plasma 01/14/2018 Serum or plasma 1.3 0.4-1.9 lactate measurement lactate measurement (moles/volume) (moles/volume) Serum or plasma urea 01/14/2018 Serum or plasma urea 14 7-18 nitrogen measurement nitrogen measurement (mass/vo (mass/volume) Serum or plasma urea 01/14/2018 Serum or plasma urea 17.5 nitrogen/creatinine nitrogen/creatinine mass rati mass ratio Serum sodium 01/14/2018 Serum sodium 141 136-145 measurement measurement Blood Culture 01/14/2018 Blood Culture NO GROWTH: 1, 2 Aerobic FINAL <SEE NOTE> Blood Culture Anaerobic NO GROWTH: FINAL <SEE NOTE> 1, 3 Lactic Acid 01/14/2018 Lactic Acid 1.3 mmol/L 0.4-1.9 1 Lab Reflex >2.0 for Sepsis? Y 1 Blood Culture 01/14/2018 Blood Culture Aerobic NO GROWTH: FINAL <SEE NOTE> 1, 4 Blood Culture Anaerobic NO GROWTH: FINAL <SEE NOTE> 1, 5 Anion Gap SerPl-sCnc 01/14/2018 Anion Gap SerPl-sCnc 6 Low 8-16 Automated blood basophil 01/14/2018 Automated blood basophil 0.01 0.0- 0.1 count (count/volume) count (count/volume) Automated blood 01/14/2018 Automated blood 0.03 0.0-0.5 eosinophil count eosinophil count Automated blood 01/14/2018 Automated blood 45.7 36.0-46.1 hematocrit (volume hematocrit (volume fraction) fraction) Automated blood 01/14/2018 Automated blood 2.84 1.0-4.0 lymphocyte count lymphocyte count (number/volume) (number/volume) Automated blood platelet 01/14/2018 Automated blood platelet 260 155-360 count count Automated blood platelet 01/14/2018 Automated blood platelet 10.7 8.9- 12.4 mean volume measurement mean volume measurement Automated erythrocyte 01/14/2018 Automated erythrocyte 29.3 25.9-32.7 mean corpuscular mean corpuscular hemoglobin hemoglobin (mass per erythrocyte) Automated erythrocyte 01/14/2018 Automated erythrocyte 33.3 30.8-34.3 mean corpuscular mean corpuscular hemoglobin hemoglobin concentration measurement (mass/volume) Automated erythrocyte 01/14/2018 Automated erythrocyte 88.2 80.9-99.0 mean corpuscular volume mean corpuscular volume Basophils/leuk NFr Bld 01/14/2018 Basophils/leuk NFr Bld 0.1 0.0-1.1 Auto Auto Blood erythrocytes 01/14/2018 Blood erythrocytes 5.18 3.90-5.40 automated count automated count (number/volume) (number/volume) Blood hemoglobin 01/14/2018 Blood hemoglobin 15.2 11.6-15.8 measurement measurement (mass/volume) (mass/volume) Blood leukocytes 01/14/2018 Blood leukocytes 10.5 3.1-10.7 automated count automated count (number/volume) (number/volume) Blood monocytes 01/14/2018 Blood monocytes 0.84 0.3-0.9 automated count automated count (number/volume) (number/volume) Chloride SerPl-sCnc 01/14/2018 Chloride SerPl-sCnc 111 High 98-107 Eosinophil/leuk NFr Bld 01/14/2018 Eosinophil/leuk NFr Bld 0.3 0.0-6.6 Auto Auto Erythrocyte 01/14/2018 Erythrocyte 17 0-20 sedimentation rate by 15 sedimentation rate by 15 minute readin minute reading CBS W/Automated Diff 08/04/2017 White Blood Count 7.4 K/uL 3.1-10.7 6 Red Blood Count 5.39 M/uL 3.90-5.40 6 Hemoglobin 15.6 gm/dL 11.6-15.8 6 Hematocrit 46.3 % High 36.0-46.1 6 Mean Cell Volume 85.9 fl 80.9-99.0 6 Mean Corpuscular HGB 28.9 pg 25.9-32.7 6 Mean Corpuscular HGB Conc 33.7 g/dL 30.8-34.3 6 Platelet Count 264 K/uL 155-360 6 Red Cell Distri Width SD 44.6 fl 3-47 6 Red Cell Distri Width %CV 14.4 % 11.7-14.4 6 Mean Platelet Volume 10.5 fL 8.9-12.4 6 Neut% 53.5 % 40.4-72.8 6 Lymph % 36.9 % 20.0-42.0 6 Hickman % 9.6 % 4.3-13.2 6 Eo% 0.0 % 0.0-6.6 6 Bas% 0.0 % 0.0-1.1 6 Neut# 3.98 K/uL 1.8-7.0 6 Lymph # 2.74 K/uL 1.0-4.0 6 Hickman # 0.71 K/uL 0.3-0.9 6 Eos # 0.00 K/uL 0.0-0.5 6 Baso # 0.00 K/uL 0.0-0.1 6 Liver Function Tests 07/23/2017 Total Protein 7.7 g/dL 6.4-8.2 7 Albumin 3.9 g/dL 3.4-5.0 7 Globulin 3.8 g/dL 1.9-4.3 7 Alb/Glob 1.0 ratio 7 Bilirubin,Total 0.4 mg/dL 0.2-1.0 7 Bilirubin,Direct < 0.1 mg/dL 0.0-0.2 7 Bilirubin,Indirect 0.3 mg/dL 0.0-0.9 7 Sgot/Ast 12 U/L Low 15-37 7, 8 SGPT/Alt 20 U/L 12-78 7 Alkaline Phosphatase 120 U/L High 45-117 7 Basic Metabolic Panel 07/23/2017 Glucose 100 mg/dL 74-106 7 BUN 12 mg/dL 7-18 7 Creatinine 0.9 mg/dL 0.6-1.3 7 Glom Filtration Rate, Estimate >60 mL/min >60 7 If >60 mL/min >60 7, 9 BUN/Creat 13.3 ratio 7 Sodium 139 mmol/L 136-145 7 Potassium 3.9 mmol/L 3.5-5.1 7 Chloride 106 mmol/L 98-107 7 Carbon Dioxide 25 mmol/L 21-32 7 Anion Gap 8 mEq/L 8-16 7 Calcium 9.6 mg/dL 8.5-10.1 7 Laboratory test finding 07/23/2017 Thyroid Stim Hormone 1.67 uIU/mL 0.30- 4.20 7 Free T4 0.95 ng/dL 0.76-1.46 7 CBS W/Automated Diff 07/23/2017 White Blood Count 10.9 K/uL High 3.1-10.7 7 Red Blood Count 5.33 M/uL 3.90-5.40 7 Hemoglobin 15.6 gm/dL 11.6-15.8 7 Hematocrit 46.3 % High 36.0-46.1 7 Mean Cell Volume 86.9 fl 80.9-99.0 7 Mean Corpuscular HGB 29.3 pg 25.9-32.7 7 Mean Corpuscular HGB Conc 33.7 g/dL 30.8-34.3 7 Platelet Count 287 K/uL 155-360 7 Red Cell Distri Width SD 43.8 fl 3-47 7 Red Cell Distri Width %CV 14.0 % 11.7-14.4 7 Mean Platelet Volume 11.8 fL 8.9-12.4 7 Neut% 53.9 % 40.4-72.8 7 Lymph % 37.7 % 20.0-42.0 7 Hickman % 8.4 % 4.3-13.2 7 Eo% 0.0 % 0.0-6.6 7 Bas% 0.0 % 0.0-1.1 7 Neut# 5.86 K/uL 1.8-7.0 7 Lymph # 4.11 K/uL High 1.0-4.0 7 Hickman # 0.92 K/uL High 0.3-0.9 7 Eos # 0.00 K/uL 0.0-0.5 7 Baso # 0.00 K/uL 0.0-0.1 7 Laboratory test finding 07/23/2017 Slide Review DIFF ORDERED 7 Differential-WBC Confirm 07/23/2017 Total Cells Counted 100 #CELLS 7 Metamyelocyte% 1 % 0% 7 Band% 2 % 0-8 7 Neutrophils% 45 % 33-73 7 Lymph% 40 % 20-42 7 Atypical Lymph% 7 % 0-7 7 Monocyte% 5 % 0-10 7 Platelet Estimate NORMAL 7 RBC Morphology NORMAL 7 Laboratory test finding 07/23/2017 Sedimentation Rate 9 mm/hr 0-20 7, 10 Triiodothyronine,Total 85 ng/dL 71-180 7 Antinuclear Antibodies, Ifa Negative . 7, 11 Influenza A/B Antigen 06/17/2017 Influenza A Antigen Negative (Negative) 12 Influenza B Antigen Negative (Negative) 12, 13 Laboratory test 06/02/2017 Throat Strep Screen NO BETA STREPTOC 14, 15 finding <SEE NOTE> Proinsulin 05/12/2017 Proinsulin 6.0 pmol/L 0.0-10.0 16, 17 Laboratory test 05/05/2017 Beta Hydroxybutyrate 1.6 mg/dL . 18, 19 finding C-Peptide 6.3 ng/mL High 1.1-4.4 18, 20 Insulin 27.0 uIU/mL High 2.6-24.9 18 Proinsulin 05/05/2017 Proinsulin (SEE NOTE) 0.0-10.0 18, 21 pmol/L TSH Reflex FT4 05/05/2017 Thyroid Stim Hormone 0.82 uIU/mL 0.30-4.20 18 And/Or FT3 Reflex add FT3? Y 18 Reflex add FT4? Y 18 Basic Metabolic Panel 05/05/2017 Glucose 109 mg/dL High 74-106 18 BUN 13 mg/dL 7-18 18 Creatinine 1.0 mg/dL 0.6-1.3 18 Glom Filtration Rate, Estimate >60 mL/min >60 18 If >60 mL/min >60 18, 22 BUN/Creat 13.0 ratio 18 Sodium 138 mmol/L 136-145 18 Potassium 4.3 mmol/L 3.5-5.1 18 Chloride 109 mmol/L High 98-107 18 Carbon Dioxide 21 mmol/L 21-32 18 Anion Gap 8 mEq/L 8-16 18 Calcium 9.9 mg/dL 8.5-10.1 18 Reflex add FT3? Y 18 Reflex add FT4? Y 18 Basic Metabolic Panel 04/08/2017 Glucose 104 mg/dL 74-106 23 BUN 12 mg/dL 7-18 23 Creatinine 0.9 mg/dL 0.6-1.3 23 Glom Filtration Rate, Estimate >60 mL/min >60 23 If >60 mL/min >60 23, 24 BUN/Creat 13.3 ratio 23 Sodium 140 mmol/L 136-145 23 Potassium 4.9 mmol/L 3.5-5.1 23 Chloride 109 mmol/L High 98-107 23 Carbon Dioxide 24 mmol/L 21-32 23 Anion Gap 7 mEq/L Low 8-16 23 Calcium 9.4 mg/dL 8.5-10.1 23 Laboratory test finding 04/08/2017 Vitamin B12 666 pg/mL 193-986 23 CBC Auto Diff 04/07/2017 White Blood Count 11.0 10^3/uL High 3.5-10.8 Red Blood Count 5.54 10^6/uL High 4.0-5.4 Hemoglobin 15.9 g/dL 12.0-16.0 Hematocrit 47 % 35-47 Mean Corpuscular Volume 86 fL 80-97 Mean Corpuscular Hemoglobin 29 pg 27-31 Mean Corpuscular HGB Conc 34 g/dL 31-36 Red Cell Distribution Width 13 % 10.5-15 Platelet Count 240 10^3/uL 150-450 Mean Platelet Volume 8 um3 7.4-10.4 Abs Neutrophils 7.0 10^3/uL 1.5-7.7 Abs Lymphocytes 3.0 10^3/uL 1.0-4.8 Abs Monocytes 0.9 10^3/uL High 0-0.8 Abs Eosinophils 0 10^3/uL 0-0.6 Abs Basophils 0 10^3/uL 0-0.2 Abs Nucleated RBC 0.02 10^3/uL Granulocyte % 63.8 % 38-83 Lymphocyte % 27.2 % 25-47 Monocyte % 8.6 % 1-9 Eosinophil % 0 % 0-6 Basophil % 0.4 % 0-2 Nucleated Red Blood Cells % 0.2 Comp Metabolic Panel 04/07/2017 Sodium 132 mmol/L Low 133-145 Potassium 3.9 mmol/L 3.5-5.0 Chloride 104 mmol/L 101-111 Co2 Carbon Dioxide 23 mmol/L 22-32 Anion Gap 5 mmol/L 2-11 Glucose 94 mg/dL 70-100 Blood Urea Nitrogen 12 mg/dL 6-24 Creatinine 0.97 mg/dL High 0.51-0.95 BUN/Creatinine Ratio 12.4 8-20 Calcium 9.7 mg/dL 8.6-10.3 Total Protein 6.9 g/dL 6.4-8.9 Albumin 4.2 g/dL 3.2-5.2 Globulin 2.7 g/dL 2-4 Albumin/Globulin Ratio 1.6 1-3 Total Bilirubin 0.40 mg/dL 0.2-1.0 Alkaline Phosphatase 75 U/L 34-104 Alt 11 U/L 7-52 Ast 17 U/L 13-39 Egfr Non- 63.0 >60 Egfr 81.0 >60 25 Basic Metabolic Panel 03/25/2017 Glucose 91 mg/dL 74-106 26 BUN 10 mg/dL 7-18 26 Creatinine 1.0 mg/dL 0.6-1.3 26 Glom Filtration Rate, Estimate >60 mL/min >60 26 If >60 mL/min >60 26, 27 BUN/Creat 10.0 ratio 26 Sodium 141 mmol/L 136-145 26 Potassium 3.9 mmol/L 3.5-5.1 26 Chloride 109 mmol/L High 98-107 26 Carbon Dioxide 23 mmol/L 21-32 26 Anion Gap 9 mEq/L 8-16 26 Calcium 9.0 mg/dL 8.5-10.1 26 CBS W/Automated Diff 03/18/2017 White Blood Count 8.0 K/uL 3.1-10.7 28 Red Blood Count 5.61 M/uL High 3.90-5.40 28 Hemoglobin 16.0 gm/dL High 11.6-15.8 28 Hematocrit 46.9 % High 36.0-46.1 28 Mean Cell Volume 83.6 fl 80.9-99.0 28 Mean Corpuscular HGB 28.5 pg 25.9-32.7 28 Mean Corpuscular HGB Conc 34.1 g/dL 30.8-34.3 28 Platelet Count 271 K/uL 150-400 28 Red Cell Distri Width SD 38.6 fl 3-47 28 Red Cell Distri Width %CV 12.8 % 11.7-14.4 28 Mean Platelet Volume 10.6 fL 8.9-12.4 28 Neut% 43.6 % 40.4-72.8 28 Lymph % 44.1 % High 20.0-42.0 28 Hickman % 12.2 % 4.3-13.2 28 Eo% 0.0 % 0.0-6.6 28 Bas% 0.1 % 0.0-1.1 28 Neut# 3.47 K/uL 1.8-7.0 28 Lymph # 3.51 K/uL 1.0-4.0 28 Hickman # 0.97 K/uL High 0.3-0.9 28 Eos # 0.00 K/uL 0.0-0.5 28 Baso # 0.01 K/uL 0.0-0.1 28 Laboratory test finding 03/18/2017 D-Dimer, Quantitative < 0.22 ug/mL 28, 29 Basic Metabolic Panel 03/18/2017 Glucose 88 mg/dL 74-106 28 BUN 12 mg/dL 7-18 28 Creatinine 1.2 mg/dL 0.6-1.3 28 Glom Filtration Rate, Estimate 52 mL/min >60 28 If >60 mL/min >60 28, 30 BUN/Creat 10.0 ratio 28 Sodium 134 mmol/L Low 136-145 28 Potassium 2.7 mmol/L Low 3.5-5.1 28 Chloride 96 mmol/L Low 98-107 28 Carbon Dioxide 29 mmol/L 21-32 28 Anion Gap 9 mEq/L 8-16 28 Calcium 9.4 mg/dL 8.5-10.1 28 Comprehensive Metabolic Panel 03/04/2017 Glucose 102 mg/dL 74-106 31 BUN 17 mg/dL 7-18 31 Creatinine 1.0 mg/dL 0.6-1.3 31 Glom Filtration Rate, Estimate >60 mL/min >60 31 If >60 mL/min >60 31, 32 BUN/Creat 17.0 ratio 31 Sodium 136 mmol/L 136-145 31 Potassium 2.7 mmol/L Low 3.5-5.1 31 Chloride 103 mmol/L 98-107 31 Carbon Dioxide 24 mmol/L 21-32 31 Anion Gap 9 mEq/L 8-16 31 Calcium 8.9 mg/dL 8.5-10.1 31 Total Protein 7.7 g/dL 6.4-8.2 31 Albumin 4.1 g/dL 3.4-5.0 31 Globulin 3.6 g/dL 1.9-4.3 31 Alb/Glob 1.1 ratio 31 Bilirubin,Total 0.4 mg/dL 0.2-1.0 31 Sgot/Ast 15 U/L 15-37 31 SGPT/Alt 30 U/L 12-78 31 Alkaline Phosphatase 85 U/L 45-117 31 Laboratory test finding 03/04/2017 CK 40 U/L 26-192 31, 33 Troponin-I < 0.015 ng/mL 31, 34 CBS W/Automated Diff 03/04/2017 White Blood Count 13.6 K/uL High 3.1-10.7 31 Red Blood Count 5.73 M/uL High 3.90-5.40 31 Hemoglobin 16.6 gm/dL High 11.6-15.8 31 Hematocrit 47.5 % High 36.0-46.1 31 Mean Cell Volume 82.9 fl 80.9-99.0 31 Mean Corpuscular HGB 29.0 pg 25.9-32.7 31 Mean Corpuscular HGB Conc 34.9 g/dL High 30.8-34.3 31 Platelet Count 282 K/uL 150-400 31 Red Cell Distri Width SD 39.3 fl 3-47 31 Red Cell Distri Width %CV 13.1 % 11.7-14.4 31 Mean Platelet Volume 11.2 fL 8.9-12.4 31, 35 Neut# 6.66 K/uL 1.8-7.0 31 Lymph # 5.65 K/uL High 1.0-4.0 31 Hickman # 1.29 K/uL High 0.3-0.9 31 Eos # 0.00 K/uL 0.0-0.5 31 Baso # 0.02 K/uL 0.0-0.1 31 Slide Review 03/04/2017 Slide Review DIFF ORDERED 31 Path Review: 03/04/2017 Path Review: INDICATED,SLIDE <SEE 31, 36 NOTE> Differential-WBC 03/04/2017 Total Cells Counted 100 #CELLS 31 Confirm Neutrophils% 47 % 33-73 31 Lymph% 29 % 20-42 31 Atypical Lymph% 16 % High 0-7 31 Monocyte% 8 % 0-10 31 Platelet Estimate NORMAL 31 Anisocytosis 0-1+ 31 Microcytosis 1+ 31 Laboratory test finding 02/02/2017 CK 31 U/L 26-192 37 D-Dimer, Quantitative < 0.22 ug/mL 37, 38 CBS W/Automated Diff 11/08/2016 White Blood Count 7.8 K/uL 3.1-10.7 39 Red Blood Count 5.22 M/uL 3.90-5.40 39 Hemoglobin 14.4 gm/dL 11.6-15.8 39 Hematocrit 43.5 % 36.0-46.1 39 Mean Cell Volume 83.3 fl 80.9-99.0 39 Mean Corpuscular HGB 27.6 pg 25.9-32.7 39 Mean Corpuscular HGB Conc 33.1 g/dL 30.8-34.3 39 Platelet Count 218 K/uL 150-400 39 Red Cell Distri Width SD 44.0 fl 3-47 39 Red Cell Distri Width %CV 14.7 % High 11.7-14.4 39 Mean Platelet Volume 11.3 fL 8.9-12.4 39 Neut% 43.5 % 40.4-72.8 39 Lymph % 44.3 % High 20.0-42.0 39 Hickman % 9.3 % 4.3-13.2 39 Eo% 2.3 % 0.0-6.6 39 Bas% 0.6 % 0.0-1.1 39 Neut# 3.38 K/uL 1.8-7.0 39 Lymph # 3.45 K/uL 1.0-4.0 39 Hickman # 0.72 K/uL 0.3-0.9 39 Eos # 0.18 K/uL 0.0-0.5 39 Baso # 0.05 K/uL 0.0-0.1 39 Laboratory test 11/08/2016 D-Dimer, Quantitative < 0.22 ug/mL 39, 40 finding Laboratory test 11/08/2016 [place] Total AB/Reflex < 0.91 ISR 0.00-0.90 39 , 41 finding To WB CBS W/Automated Diff 09/10/2016 White Blood Count 6.7 K/uL 3.1-10.7 42 Red Blood Count 5.45 M/uL High 3.90-5.40 42 Hemoglobin 14.5 gm/dL 11.6-15.8 42 Hematocrit 44.7 % 36.0-46.1 42 Mean Cell Volume 82.0 fl 80.9-99.0 42 Mean Corpuscular HGB 26.6 pg 25.9-32.7 42 Mean Corpuscular HGB Conc 32.4 g/dL 30.8-34.3 42 Platelet Count 269 K/uL 150-400 42 Red Cell Distri Width SD 45.5 fl 3-47 42 Red Cell Distri Width %CV 15.2 % High 11.7-14.4 42 Mean Platelet Volume 12.1 fL 8.9-12.4 42 Neut% 44.9 % 40.4-72.8 42 Lymph % 42.7 % High 20.0-42.0 42 Hickman % 10.1 % 4.3-13.2 42 Eo% 1.6 % 0.0-6.6 42 Bas% 0.7 % 0.0-1.1 42 Neut# 3.02 K/uL 1.8-7.0 42 Lymph # 2.88 K/uL 1.0-4.0 42 Hickman # 0.68 K/uL 0.3-0.9 42 Eos # 0.11 K/uL 0.0-0.5 42 Baso # 0.05 K/uL 0.0-0.1 42 Anticoagulant Therapy? NO 42 Protime 09/10/2016 Protime 13.0 seconds 12.0-14.4 42 Inr 1.0 0.9-1.1 42, 43 Anticoagulant Therapy? NO 42 Act Partial Thrombo 09/10/2016 Act Partial Thrombo 32.7 seconds 23.4- 35.0 42 Time Time Anticoagulant Therapy? NO 42 Laboratory test finding 09/10/2016 Treponema Antibody [place] Negative Negative 42 Hepatitis C Antibody < 0.1 s/corat 0.0-0.9 42, 44 Chlamydia/GC Ella, Urine 09/10/2016 Chlamydia Trachomatis,Ur Negative Negative 42 -Ella Neisseria Gonorrhoeae,Ur -Ella Negative Negative 42, 45 Laboratory test 09/10/2016 HIV Screen 4TH Non Reactive Non Reactive 42, 46 finding Gen Reflex B-type 07/12/2016 B natriuretic 63 pg/mL 0 - 100 natriuretic peptide peptide T4, free 07/12/2016 Free T4 0.77 ng/dL 0.76 - 1.46 TSH 07/12/2016 TSH, High 0.854 mIU/L 0.360 - 4.170 Sensitivity Prothrombin time 07/10/2016 Prothrombin time 12.4 12.0-14.4 RBC # Bld Auto 07/10/2016 RBC # Bld Auto 5.66 High 3.90-5.40 RDW RBC Auto 07/10/2016 RDW RBC Auto 41.3 3-47 RDW RBC Auto-Rto 07/10/2016 RDW RBC Auto-Rto 13.5 11.7-14.4 Sodium SerPl-sCnc 07/10/2016 Sodium SerPl-sCnc 143 136-145 WBC # Bld Auto 07/10/2016 WBC # Bld Auto 7.2 3.1-10.7 BUN/Creat SerPl 07/10/2016 BUN/Creat SerPl 17.5 BUN SerPl-mCnc 07/10/2016 BUN SerPl-mCnc 14 7-18 Anion Gap 07/10/2016 Anion Gap 8 8-16 SerPl-sCnc SerPl-sCnc Albumin/Glob 07/10/2016 Albumin/Glob 0.8 SerP SerPl Albumin 07/10/2016 Albumin 3.4 3.4-5.0 SerP-mCnc SerPl-mCnc Ast SerPl-cCnc 07/10/2016 Ast SerPl-cCnc 12 Low 15-37 Alt SerPl-cCnc 07/10/2016 Alt SerPl-cCnc 19 12-78 Alp SerPl-cCnc 07/10/2016 Alp SerPl-cCnc 112 45-117 Laboratory test 07/10/2016 CK 17 U/L Low 26-192 47 finding Troponin-I < 0.015 ng/mL 47, 48 Thyroid Stim Hormone 5.52 uIU/mL High 0.30-4.20 47 Free T4 0.86 ng/dL 0.76-1.46 47 Comprehensive Metabolic Panel 07/10/2016 Glucose 91 mg/dL 74-106 47 BUN 14 mg/dL 7-18 47 Creatinine 0.8 mg/dL 0.6-1.3 47 Glom Filtration Rate, Estimate >60 mL/min >60 47 If >60 mL/min >60 47, 49 BUN/Creat 17.5 ratio 47 Sodium 143 mmol/L 136-145 47 Potassium 4.0 mmol/L 3.5-5.1 47 Chloride 108 mmol/L High 98-107 47 Carbon Dioxide 27 mmol/L 21-32 47 Anion Gap 8 mEq/L 8-16 47 Calcium 9.0 mg/dL 8.5-10.1 47 Total Protein 7.5 g/dL 6.4-8.2 47 Albumin 3.4 g/dL 3.4-5.0 47 Globulin 4.1 g/dL 1.9-4.3 47 Alb/Glob 0.8 ratio 47 Bilirubin,Total 0.2 mg/dL 0.2-1.0 47 Sgot/Ast 12 U/L Low 15-37 47, 50 SGPT/Alt 19 U/L 12-78 47 Alkaline Phosphatase 112 U/L 45-117 47 Protime 07/10/2016 Protime 12.4 seconds 12.0-14.4 47 Inr 0.9 0.9-1.1 47, 51 CBS W/Automated Diff 07/10/2016 White Blood Count 7.2 K/uL 3.1-10.7 47 Red Blood Count 5.66 M/uL High 3.90-5.40 47 Hemoglobin 15.3 gm/dL 11.6-15.8 47 Hematocrit 47.5 % High 36.0-46.1 47 Mean Cell Volume 83.9 fl 80.9-99.0 47 Mean Corpuscular HGB 27.0 pg 25.9-32.7 47 Mean Corpuscular HGB Conc 32.2 g/dL 30.8-34.3 47 Platelet Count 316 K/uL 150-400 47 Red Cell Distri Width SD 41.3 fl 3-47 47 Red Cell Distri Width %CV 13.5 % 11.7-14.4 47 Mean Platelet Volume 9.6 fL 8.9-12.4 47 Neut% 46.4 % 40.4-72.8 47 Lymph % 41.6 % 20.0-42.0 47 Hickman % 9.0 % 4.3-13.2 47 Eo% 2.4 % 0.0-6.6 47 Bas% 0.6 % 0.0-1.1 47 Neut# 3.36 K/uL 1.8-7.0 47 Lymph # 3.00 K/uL 1.0-4.0 47 Hickman # 0.65 K/uL 0.3-0.9 47 Eos # 0.17 K/uL 0.0-0.5 47 Baso # 0.04 K/uL 0.0-0.1 47 Protime-Inr 07/10/2016 Inr 1.00 1 Protime 10.3 s 9.2 - 11.9 CBC 07/10/2016 Hematocrit 45.2 % 36.0 - 47.0 Hemoglobin 14.8 g/dL 12.0 - 16.0 MCH 27.0 pg 27.0 - 32.0 MCHC 32.7 g/dL 32.0 - 36.0 MCV 82.6 fL 80.0 - 95.0 MPV 8.2 fL 7.1 - 10.7 Platelets 285 10*3/uL 150 - 450 RBC 5.47 10*6/uL High 4.00 - 5.40 RDW 13.8 % 10.5 - 14.5 WBC 8.8 10*3/uL 4.1 - 11.0 BMP 07/10/2016 Anion Gap 7 mmol/L 7 - 16 BUN/Creatinine Ratio 11.9 Ratio 10.0 - 20.0 Calcium 9.3 mg/dL 8.4 - 10.2 Chloride 109 mmol/L High 100 - 108 Co2 25 mmol/L Creatinine 0.84 mg/dL 0.60 - 1.00 GFR MDRD Af Amer >60 >59 ml/min/1.73m2 GFR MDRD Non Af Amer >60 >59 ml/min/1.73m2 Glom Filt Rate, Est See Notes Glucose 120 mg/dL High 70 - 99 Potassium 3.9 mmol/L 3.6 - 5.2 Sodium 141 mmol/L 136 - 145 Urea nitrogen 10 mg/dL 7 - Monocytes # Bld Auto 07/10/2016 Monocytes # Bld Auto 0.65 0.3-0.9 MCV RBC Auto 07/10/2016 MCV RBC Auto 83.9 80.9-99.0 MCHC RBC Auto-mCnc 07/10/2016 MCHC RBC Auto-mCnc 32.2 30.8-34.3 MCH RBC Qn Auto 07/10/2016 MCH RBC Qn Auto 27.0 25.9-32.7 Lymphocytes/leuk NFr 07/10/2016 Lymphocytes/leuk NFr 41.6 20.0-42.0 Bld Auto Bld Auto Lymphocytes # Bld 07/10/2016 Lymphocytes # Bld 3.00 1.0-4.0 Auto Auto Hgb Bld-mCnc 07/10/2016 Hgb Bld-mCnc 15.3 11.6-15.8 Hct VFr Bld Auto 07/10/2016 Hct VFr Bld Auto 47.5 High 36.0-46.1 Glucose 07/10/2016 Glucose 91 74-106 [mass/volume] in [mass/volume] in serum or plasma serum or plasma Globulin Ser 07/10/2016 Globulin Ser 4.1 1.9-4.3 Calc-mCnc Calc-mCnc Eosinophil/leuk NFr 07/10/2016 Eosinophil/leuk NFr 2.4 0.0-6.6 Bld Auto Bld Auto Eosinophil # Bld 07/10/2016 Eosinophil # Bld 0.17 0.0-0.5 Auto Auto Creat SerPl-mCnc 07/10/2016 Creat SerPl-mCnc 0.8 0.6-1.3 Chloride SerPl-sCnc 07/10/2016 Chloride SerPl-sCnc 108 High 98-107 Calcium SerPl-mCnc 07/10/2016 Calcium SerPl-mCnc 9.0 8.5-10.1 Co2 SerPl-sCnc 07/10/2016 Co2 SerPl-sCnc 27 21-32 Bilirub SerPl-mCnc 07/10/2016 Bilirub SerPl-mCnc 0.2 0.2-1.0 Basophils/leuk NFr 07/10/2016 Basophils/leuk NFr 0.6 0.0-1.1 Bld Auto Bld Auto Basophils # Bld Auto 07/10/2016 Basophils # Bld Auto 0.04 0.0-0.1 Prot SerPl-mCnc 07/10/2016 Prot SerPl-mCnc 7.5 6.4-8.2 Potassium SerPl-sCnc 07/10/2016 Potassium SerPl-sCnc 4.0 3.5-5.1 Platelet # Bld Auto 07/10/2016 Platelet # Bld Auto 316 150-400 PMV Bld Auto 07/10/2016 PMV Bld Auto 9.6 8.9-12.4 Neutrophils/leuk NFr 07/10/2016 Neutrophils/leuk NFr 46.4 40.4-72.8 Bld Auto Bld Auto Neutrophils # Bld 07/10/2016 Neutrophils # Bld 3.36 1.8-7.0 Auto Auto Monocytes/leuk NFr 07/10/2016 Monocytes/leuk NFr 9.0 4.3-13.2 Bld Auto Bld Auto Fibrin D-dimer Feu 07/01/2016 Fibrin D-dimer Feu 4.40 measurement in measurement in platelet poor pl platelet poor plasma (mass/volume) Blood platelet 07/01/2016 Blood platelet Slight Increase adequacy detection adequacy detection by light microsc by light microscopy Blood microcytes 07/01/2016 Blood microcytes 1+ detection by light detection by light microscopy microscopy Venous blood partial 07/01/2016 Venous blood partial 33 Low 40-60 pressure of oxygen pressure of oxygen measuremen measurement with patient temperature corrrection Venous blood partial 07/01/2016 Venous blood partial 34 Low 45-50 pressure of carbon pressure of carbon dioxide me dioxide measurement adjusted to patients actual temperature Venous blood pH 07/01/2016 Venous blood pH 7.40 7.25-7.55 measurement with measurement with patient temperatu patient temperature correction Venous blood oxygen 07/01/2016 Venous blood oxygen 65 60-80 saturation (mass saturation (mass fraction) fraction) Venous blood 07/01/2016 Venous blood 21 bicarbonate bicarbonate measurement measurement (moles/volume (moles/volume) Venous blood base 07/01/2016 Venous blood base -3 excess by excess by calculation calculation Unloinc 07/01/2016 Unloinc Oxygen * Inhaled oxygen 07/01/2016 * Inhaled oxygen 2 0-20 flow rate flow rate Venous Blood Gas 07/01/2016 Venous Blood Gas pH 7.40 7.25-7.55 52 Venous Blood Gas Pco2 34 mmHg Low 45-50 52 Venous Blood Gas Po2 33 mmHg Low 40-60 52 Venous Blood Gas Hco3 21 mEq/L 52 Venous Blood Gas Base XS -3 mEq/L 52 Venous Blood Gas OS Sat. 65 % 60-80 52 Venous Blood Gas Type OXYGEN 52 Venous Blood Gas L/Min 2 L/Min 0-20 52 Lymphocytes/100 07/01/2016 Lymphocytes/100 9 Low 20-42 leukocytes in blood leukocytes in blood by manual coun by manual count Monocytes/100 07/01/2016 Monocytes/100 7 0-10 leukocytes in blood leukocytes in blood by manual count by manual count Neuts Seg/leuk NFr 07/01/2016 Neuts Seg/leuk NFr 84 High 33-73 Bld Manual Bld Manual Total Cells Counted 07/01/2016 Total Cells Counted 100 Bld Bld Unloinc 07/01/2016 Unloinc Diff Ordered Unloinc 06/11/2016 Unloinc . WBC # Bld Auto 06/11/2016 WBC # Bld Auto 12.7 High 3.1-10.7 Creat SerPl-mCnc 06/11/2016 Creat SerPl-mCnc 0.9 0.6-1.3 Chloride SerPl-sCnc 06/11/2016 Chloride SerPl-sCnc 106 98-107 Calcium SerPl-mCnc 06/11/2016 Calcium SerPl-mCnc 9.4 8.5-10.1 Co2 SerPl-sCnc 06/11/2016 Co2 SerPl-sCnc 22 21-32 Bilirub SerPl-mCnc 06/11/2016 Bilirub SerPl-mCnc 0.4 0.2-1.0 Basophils/leuk NFr 06/11/2016 Basophils/leuk NFr 0.2 0.0-1.1 Bld Auto Bld Auto Basophils # Bld Auto 06/11/2016 Basophils # Bld Auto 0.03 0.0-0.1 BUN/Creat SerPl 06/11/2016 BUN/Creat SerPl 14.4 BUN SerPl-mCnc 06/11/2016 BUN SerPl-mCnc 13 7-18 Anion Gap SerPl-sCnc 06/11/2016 Anion Gap SerPl-sCnc 11 8-16 Albumin/Glob SerPl 06/11/2016 Albumin/Glob SerPl 1.1 Albumin SerPl-mCnc 06/11/2016 Albumin SerPl-mCnc 4.2 3.4-5.0 Ast SerPl-cCnc 06/11/2016 Ast SerPl-cCnc 13 Low 15-37 Alt SerPl-cCnc 06/11/2016 Alt SerPl-cCnc 28 12-78 Alp SerPl-cCnc 06/11/2016 Alp SerPl-cCnc 124 High 45-117 Laboratory test 06/11/2016 D-Dimer, 0.40 ug/mL 53, 54 finding Quantitative Eosinophil # Bld 06/11/2016 Eosinophil # Bld 0.09 0.0-0.5 Auto Auto Eosinophil/leuk NFr 06/11/2016 Eosinophil/leuk NFr 0.7 0.0-6.6 Bld Auto Bld Auto Fibrin D-dimer Feu 06/11/2016 Fibrin D-dimer Feu 0.40 measurement in measurement in platelet poor pl platelet poor plasma (mass/volume) Globulin Ser 06/11/2016 Globulin Ser 3.7 1.9-4.3 Calc-mCnc Calc-mCnc Glucose SerPl-mCnc 06/11/2016 Glucose SerPl-mCnc 98 74-106 Hct VFr Bld Auto 06/11/2016 Hct VFr Bld Auto 45.6 36.0-46.1 Hgb Bld-mCnc 06/11/2016 Hgb Bld-mCnc 15.4 11.6-15.8 Lymphocytes # Bld 06/11/2016 Lymphocytes # Bld 2.36 1.0-4.0 Auto Auto Lymphocytes/leuk NFr 06/11/2016 Lymphocytes/leuk NFr 18.6 Low 20.0-42.0 Bld Auto Bld Auto MCH RBC Qn Auto 06/11/2016 MCH RBC Qn Auto 28.5 25.9-32.7 MCHC RBC Auto-mCnc 06/11/2016 MCHC RBC Auto-mCnc 33.8 30.8-34.3 MCV RBC Auto 06/11/2016 MCV RBC Auto 84.4 80.9-99.0 Monocytes # Bld Auto 06/11/2016 Monocytes # Bld Auto 1.10 High 0.3-0.9 Monocytes/leuk NFr 06/11/2016 Monocytes/leuk NFr 8.7 4.3-13.2 Bld Auto Bld Auto Neutrophils # Bld 06/11/2016 Neutrophils # Bld 9.11 High 1.8-7.0 Auto Auto Neutrophils/leuk NFr 06/11/2016 Neutrophils/leuk NFr 71.8 40.4-72.8 Bld Auto Bld Auto PMV Bld Auto 06/11/2016 PMV Bld Auto 11.2 8.9-12.4 Platelet # Bld Auto 06/11/2016 Platelet # Bld Auto 221 150-400 Potassium SerPl-sCnc 06/11/2016 Potassium SerPl-sCnc 3.6 3.5-5.1 Prot SerPl-mCnc 06/11/2016 Prot SerPl-mCnc 7.9 6.4-8.2 RBC # Bld Auto 06/11/2016 RBC # Bld Auto 5.40 3.90-5.40 RDW RBC Auto 06/11/2016 RDW RBC Auto 41.2 3-47 RDW RBC Auto-Rto 06/11/2016 RDW RBC Auto-Rto 13.4 11.7-14.4 Serum or plasma 06/11/2016 Serum or plasma 38 26-192 creatine kinase creatine kinase measurement (enzym measurement (enzymatic activity/volume) Sodium SerPl-sCnc 06/11/2016 Sodium SerPl-sCnc 139 136-145 1 R HIP INJECTION FROM CORTIZONE INFECTION? 2 NO GROWTH: FINAL REPORT 3 NO GROWTH: FINAL REPORT 4 NO GROWTH: FINAL REPORT 5 NO GROWTH: FINAL REPORT 6 WEAKNESS 7 URTICARIA L50.8 R53.83 E03.9 E87.6 8 Values below the stated reference ranges of AST and ALT can be seen in normal populations. Clinical correlation is suggested. 9 Note: Persistent reduction for 3 months or more in an eGFR <60 mL/min/1.73 m2 defines CKD. Patients with eGFR values >/=60 mL/min/1.73 m2 may also have CKD if evidence of persistent proteinuria is present. The original MDRD equation for estimated GFR is not valid for patients less than 18 years of age. Additional information may be found at [email or web address]. 10 Method: Sediplast Modified Westergren 11 Negative <1:80 Borderline 1:80 Positive >1:80 Performed at: - [facility] [address] [id number] Mandarin Teacher: Stephanie Christie MD, Phone: [phone] 12 E67.9 13 Please Note: A POSITIVE result for influenza A and/or B antigen does not rule out a co-infection with other pathogens or identify any specific influenza A virus subtype. A NEGATIVE result for influenza A and/or B antigen does not preclude influenza virus infection and should not be the sole basis for treatment or other management decisions, since the antigen present in the specimen may be below the detection limit of the test. A NEGATIVE result is PRESUMPTIVE and it is recommended these results be confirmed by virus culture or an FDA-cleared influenza A and B molecular assay. Method: BD Veritor Chromatographic immunoassay 14 R50.9 15 NO BETA STREPTOCOCCI ISOLATED 16 REDRAW FOR TWO TESTS 17 Performed at: - [facility] [id number] Mandarin Teacher: Abdelrahman Wright MD, Phone: [phone] 18 E16.2 E87.6 19 Reference Range: All Ages (fasting): 0.2 - 2.8 20 C-Peptide reference interval is for fasting patients. 21 Test not performed. Due to a specimen transport delay, the result of unusually severe weather conditions, the specimen submitted no longer meets the laboratory's criteria for acceptability. Please resubmit if clinically indicated. 22 Note: Persistent reduction for 3 months or more in an eGFR <60 mL/min/1.73 m2 defines CKD. Patients with eGFR values >/=60 mL/min/1.73 m2 may also have CKD if evidence of persistent proteinuria is present. The original MDRD equation for estimated GFR is not valid for patients less than 18 years of age. Additional information may be found at [email or web address]. 23 E87.6 D51.9 24 Note: Persistent reduction for 3 months or more in an eGFR <60 mL/min/1.73 m2 defines CKD. Patients with eGFR values >/=60 mL/min/1.73 m2 may also have CKD if evidence of persistent proteinuria is present. The original MDRD equation for estimated GFR is not valid for patients less than 18 years of age. Additional information may be found at [email or web address]. 25 Because ethnic data is not always readily available, this report includes an eGFR for both -Americans and non- Americans. The National Kidney Disease Education Program (NKDEP) does not endorse the use of the MDRD equation for patients that are not between the ages of 18 and 70, are , have extremes of body size, muscle mass, or nutritional status, or are non- or non-. According to the National Kid[employer] Foundation, irrespective of diagnosis, the stage of the disease is based on the level of kidney function: Stage Description GFR(mL/min/1.73 m(2)) 1 Kidney damage with normal or decreased GFR 90 2 Kidney damage with mild decrease in GFR 60-89 3 Moderate decrease in GFR 30-59 4 Severe decrease in GFR 15-29 5 Kidney failure <15 (or dialysis) 26 E87.6 27 Note: Persistent reduction for 3 months or more in an eGFR <60 mL/min/1.73 m2 defines CKD. Patients with eGFR values >/=60 mL/min/1.73 m2 may also have CKD if evidence of persistent proteinuria is present. The original MDRD equation for estimated GFR is not valid for patients less than 18 years of age. Additional information may be found at [email or web address]. 28 R06.02, E87.6 29 <=0.49 ug/mL - Low likelihood of DIC, DVT or Pulmonary Embolism >0.49 ug/mL - Additional testing should be done to rule out DIC, DVT, or Pulmonary embolism as clinically indicated. ([facility] has established a 97.89% negative predictive value for thrombotic disease when a cutoff value of 0.5 ug/mL is used.) 30 Note: Persistent reduction for 3 months or more in an eGFR <60 mL/min/1.73 m2 defines CKD. Patients with eGFR values >/=60 mL/min/1.73 m2 may also have CKD if evidence of persistent proteinuria is present. The original MDRD equation for estimated GFR is not valid for patients less than 18 years of age. Additional information may be found at www.kdoqi.org. 31 AMS/LETHARGIC/RESP DISTRESS 32 Note: Persistent reduction for 3 months or more in an eGFR <60 mL/min/1.73 m2 defines CKD. Patients with eGFR values >/=60 mL/min/1.73 m2 may also have CKD if evidence of persistent proteinuria is present. The original MDRD equation for estimated GFR is not valid for patients less than 18 years of age. Additional information may be found at www.kdoqi.org. 33 CALLED ODILON Coffman R.N. IN ER WITH POTASSIUM RESULT AT 0203 03/04/17 by LAB.[facility] NO SERUM TUBE RECEIVED 34 0.0 - 0.045 ng/mL: Normal 0.046 - 0.5 ng/mL: Suggestive 0.6 - 1.5 ng/mL: Consistent 35 03/04/17 0140: NEUT% previously reported as: 48.9 % Amended result called to: [] - 03/04/17 at 0140 03/04/17 0140: LYMPH % previously reported as: 41.5 % Amended result called to: [] - 03/04/17 at 0140 03/04/17 0140: MONO % previously reported as: 9.5 % Amended result called to: [] - 03/04/17 at 0140 03/04/17 0140: EO% previously reported as: 0.0 % Amended result called to: [] - 03/04/17 at 0140 03/04/17 0140: BAS% previously reported as: 0.1 % Amended result called to: [] - 03/04/17 at 0140 36 INDICATED,SLIDE SENT Hematology Consultation Final Report Case# [id number] Final Diagnosis Review of peripheral blood smear confirms the hemograms findings. There is mild absolute lymphocytosis and mild increase in RBCs/Hgb/HCT. Some of the lymphocytes are small in size and show hypercondensed chromatin,while other lymphocytes are slightly larger in size and have increased amount of granular cytoplasm with reactive morphological appearance. Rule out viral infection. If lymphocytosis persists for several months, flow cytometric analysis of the peripheral blood should be done to rule-out/rule-in a lymphoproliferative disorder. Because of mild increase in RBCs/Hgb/HCT, dehydration should be ruled out. If there is no dehydration, work-up to rule out secondary polycythemia and polycthemia vera should be done. S 03/04/17 Gross Description Peripheral blood smear Clinical Data Absolute lymphocytosis and increased Hgb/HCT Cher Leonard MD Reported 03/04/2017 at 7:52PM, Report electronically signed Performed at: [id number] [id number] 03/05/17 0834: PATH REVIEW: previously reported as: INDICATED,SLIDE SENT Amended result called to: - 03/05/17 at 0834 37 LEGS, SWELLING, CAN'T WALK 38 <=0.49 ug/mL - Low likelihood of DIC, DVT or Pulmonary Embolism >0.49 ug/mL - Additional testing should be done to rule out DIC, DVT, or Pulmonary embolism as clinically indicated. ([facility] has established a 97.89% negative predictive value for thrombotic disease when a cutoff value of 0.5 ug/mL is used.) 39 SENT BY , BLOOD CLOT? 40 <=0.49 ug/mL - Low likelihood of DIC, DVT or Pulmonary Embolism >0.49 ug/mL - Additional testing should be done to rule out DIC, DVT, or Pulmonary embolism as clinically indicated. ([facility] has established a 97.89% negative predictive value for thrombotic disease when a cutoff value of 0.5 ug/mL is used.) 41 Negative <0.91 Equivocal 0.91 - 1.09 Positive >1.09 Performed at: RN - [facility] [address] [id number] Mandarin Teacher: Stephanie Christie MD, Phone: [phone] 42 S80.12XA Z11.3 43 THERAPEUTIC INR RANGE: 2.0 - 3.0 DVT, Pulmonary embolus, prophylaxis against venous thrombosis or systemic embolization in high risk patients. 2.5 - 3.5 Mechanical heart valves 44 INFCE Result Units: s/co ratio Negative: < 0.8 Indeterminate: 0.8 - 0.9 Positive: > 0.9 The CDC recommends that a positive HCV antibody result be followed up with a HCV Nucleic Acid Amplification test (061300). Performed at: [address] [id number] Mandarin Teacher: Abdelrahman Wright MD, Phone: [phone] Performed at: [facility] [address] [id number] Mandarin Teacher: Stephanie Christie MD, Phone: [phone] 45 A negative result for either C. trachomatis and/or N. gonorrhoeae does not preclued an infection because results are dependent on adequate specimen collection, absence of inhibitors, and sufficient DNA to be detected. 46 Performed at: [facility] [address] [id number] Mandarin Teacher: Stephanie Christie MD, Phone: [phone] [address] CABALLERO,RT SIDE ABD PAIN,HEART SURGERY 06/30 48 0.0 - 0.045 ng/mL: Normal 0.046 - 0.5 ng/mL: Suggestive 0.6 - 1.5 ng/mL: Consistent 49 Note: Persistent reduction for 3 months or more in an eGFR <60 mL/min/1.73 m2 defines CKD. Patients with eGFR values >/=60 mL/min/1.73 m2 may also have CKD if evidence of persistent proteinuria is present. The original MDRD equation for estimated GFR is not valid for patients less than 18 years of age. Additional information may be found at www.kdoqi.org. 50 Values below the stated reference ranges of AST and ALT can be seen in normal populations. Clinical correlation is suggested. 51 THERAPEUTIC INR RANGE: 2.0 - 3.0 DVT, Pulmonary embolus, prophylaxis against venous thrombosis or systemic embolization in high risk patients. 2.5 - 3.5 Mechanical heart valves 52 GEN WEAKNESS 53 SOB,CP,POSS PNEUMONIA 54 <=0.49 ug/mL - Low likelihood of DIC, DVT or Pulmonary Embolism >0.49 ug/mL - Additional testing should be done to rule out DIC, DVT, or Pulmonary embolism as clinically indicated. ([facility] has established a 97.89% negative predictive value for thrombotic disease when a cutoff value of 0.5 ug/mL is used.) Procedures Date CPT Code Description Status Comment 02/24/2018 51776 EKG-Tracing And Report Completed 02/19/2018 34391 Refraction Completed 02/19/2018 17267 Eye Exam New Patient Completed Comprehensive 08/05/2017 22730 Radiologic Exam Hip Unilateral Completed With Pelvis 2-3 Views 06/02/2017 84492 Pulse Oximetry Completed 03/18/2017 55479 EKG-Tracing And Report Completed 08/13/2016 36875 Bronchospasm Provocation Completed Evaluation Multi Spirometric Determinati 08/13/2016 81754 Spirometry Completed 08/13/2016 66725 Echocardiogram Complete Completed 07/22/2016 03202 EKG-Tracing And Report Completed 04/21/2016 Mammogram Completed ordered with [facility] in [place] 08/28/2012 93213 Echocardiogram Complete Completed 08/28/2012 17906 Event Monitor Inter/Review Only Completed 09/21/2008 68315 Holter Monitor 24HR Completed Inter/Report Encounters Type Date Location Provider CPT E/M Dx Office Visit 03/16/2018 4:15p Family Medicine Ledy Spann PNP-BC, 25439 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 14523 L50.8 Office Visit 06/17/2017 1:30p Family Medicine Raya Caballero M.D. 68399 B34.9 Office Visit 06/10/2017 8:45a Family Medicine Raya Caballero M.D. 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 65905 Z01.818 G47.30 R60.0 Office Visit 04/23/2017 4:30p Family Medicine Raya Caballero M.D. 23031 E87.6 E16.2 M25.551 Office Visit 03/25/2017 11:00a Family Medicine Raya Caballero M.D. 09549 E87.6 Office Visit 03/20/2017 4:45p Family Medicine Raya Caballero M.D. 85179 E87.6 Office Visit 03/18/2017 11:30a Family Medicine Raya Caballero M.D. 32612 R06.02 E87.6 R00.0 Office Visit 01/13/2017 3:00p [place] [address] K59.03 Office Visit 12/12/2016 4:00p Family Medicine Raya Caballero M.D. 34391 F41.9 K59.00 M25.561 Office Visit 09/10/2016 3:30p Family Medicine Raya Caballero M.D. 67304 S80.12xA R06.02 F41.9 Z11.3 Office Visit 07/22/2016 2:00p Cardiology Office Huseyin Ware, 13975 R06.02 [place], [facility] I32 Office Visit 07/16/2016 10:30a Family Raya Amador M.D. 30385 R06.02 Office Visit 07/10/2016 9:30a [facility] Raya Caballero M.D. 88988 R06.02 Office Visit 06/28/2016 10:30a [facility] Raya Caballero M.D. 46575 R06.02 Office Visit 06/18/2016 11:30a [facility] Raya Caballero M.D. 14883 F33.1 F41.9 J45.20 Office Visit 04/05/2016 10:15a [facility] Raya Amador M.D. 79228 F33.1 F41.9 G47.00 Office Visit 03/19/2016 11:45a [facility] Raya Amador M.D. 59973 F41.9 F33.1 G47.00 B37.2 Office Visit 03/05/2016 10:45a [facility] Raya Amador M.D. 06085 F41.9 G40.909 M54.5 M79.7 Plan of Care 03/16/2018 - Ledy Spann, PNP-BC, OUTDOOR EMERGENCY CARE TECHNICIAN, QwzitL35.830 Muscle spasm of backComments:will try doing the cyclobenzaprine during the day and not at bed time but if that doesn't help let me know and we can try the baclofen.F41.9 Anxiety disorder, unspecified
--- OUTSIDE RECORDS SUMMARY | 2018-03-25 14:21 | XMS REPORT ---
:1975 External Reference #:[id number] Author Organization [facility] Address [address], [address] [place] [address] Phone [phone] Care Team Providers Name Role Phone Ledy Spann, PNPLEIGHANN, SPECK DYER, Ibclc Care Team Information Freezer Assistant Unavailable Ledy Spann, ELBERT, SPECK DYER, Ibclc Primary Care Physician Unavailable Payers Type Date Identification Numbers Payment Provider Subscriber Medicare Primary Policy Number: [id number] Medicare Edyta Gill PayID: [id number] [address] [place] [address] Medicaid Policy Number: [id number] Medicaid Edyta Gill PayID: [id number] [address] [place] [address] Problems Date Description Provider Status Onset: 03/05/2016 [...] Huseyin Ware M.D., Active with another disorder FAC Onset: 01/13/2017 Drug-induced constipation Margy Ventura MD Active Onset: 07/09/2017 Urticaria Raya Caballero M.D. Active Onset: 08/08/2017 Complex regional pain syndrome Ledy Spann, JIN-BC, SPECK DYER, Active Ibclc Onset: 01/16/2018 Visual disturbance Margy [...] Form Strength Qnty SIG Indications Ordering Provider Meclizine HCL 01/16 Active Tablets 25mg 14tab 1/2 to 1 H81.42 s tabs by MD Margy mouth 3 times a day as needed vertigo Zantac 150 08/06 Active Tablets 150mg 1 po as L50.8 Maria Ines needed for Sylwia Villafana-BC, SPECK DYER, Ibclc Zofran 12/12 Active Tablets 8mg 30tab 1 Tabl Every Maria Ines, s 8 Hours as Ledy, Needed JIN-CHARLES, SPECK DYER, Ibclc Topamax Active Tablets 100mg 1 tab qam 2 Unknown /0000 tabs qhs Morphine Active Tablets ER 15mg sif 1 po bid Unknown Sulfate ER Effexor XR Active Caps ER 24HR 150mg 1 po bid Unknown / Voltaren Active Gel 1% Unknown Relpax Active Tablets 20mg take 1 Unknown /0000 tablet as needed migraine headache may repeat dose in 2 hours if needed. Magnesium Active Tablets 1 by mouth Unknown / every day Turmeric With Active 1 po qd Unknown Rubia Probiotic Active Capsules 1 by mouth Unknown / every day Vitamin B-12 Active Tablets 1 by mouth Unknown /0000 every day Vitamin C Active Tablets 1 by mouth Unknown / every day Vitamin D3 Active Capsules 1000Unit 1 by mouth Unknown / every day Zyrtec Allergy Active Tablets 10mg 1 tab by Unknown /0000 mouth every night Eletriptan Active Tablets 40mg TK 1 T PO Unknown Hydrobromide bid as Needed. Max 2 Days Q WK Venlafaxine 02/19 Hx Tablets ER 150mg 1 po bid Maria Ines, HCL 24HR Ledy, - ELBERT, 02/19 SPECK DYER, Ibclc Venlafaxine 01/28 Hx Tablets 50mg 120ta 2 tabs po Maria Ines, HCL bs bid Ledy, Asael BOSWELL, 02/19 SPECK DYER Ibclc Mupirocin 01/16 Hx Ointment 2% 22gm apply to L30.9 Lorenzo, affected MD Margy - area 3 times 02/10 a day as needed Betamethasone 01/16 Hx Cream 0.05% 45gm apply to Lorenzo, Dipropionate affected MD Margy - areas at 01/16 bedtime, august use 2x/day if needed Betamethasone 01/16 Hx Cream 0.1% 15gm apply to Lorenzo Valerate affected MD Margy - areas 3x/day 02/10 as needed; okay to take with flovent allergy Venlafaxine 12/10 Hx Tablets 100mg 180ta 1 by mouth CLIVE Spann bs bid Ledy, - PNP-BC, 01/28 SPECK DYER Ibclc Buspirone HCL 10/15 Hx Tablets 15mg 60tab take one s tablet by Ledy, - mouth four PNP-BC, 01/16 times a day as needed Ibclc Venlafaxine 10/01 Hx Tablets 50mg 180ta 1 Tab PO bid F33.1 AnjelicaCLIVE bs Raya, - M.DChadwick 11/05 Folic Acid 09/29 Hx Tablets 800mcg 90tab 1 po qday Maria Ines s Ledy, - PNP-BC, 01/16 SPECK DYER Ibclc Permethrin 09/16 Hx Cream 5% 60gm apply to Maria Ines body and Ledy, - wash off PNP-BC, 11/05 after 12 hours. Ibclc Prednisone 09/12 Hx Tablets 10mg QS 5 tabs Maria Ines today, then Ledy, - 4 tabs PNP-BC, 09/17 tomorrow, 3 SPECK DYER tabs day 3, Ibclc 2 tabs day 4, and 1 tab day 5 Triamcinolone 09/04 Hx Ointment 0.025% 15gm apply bid as Maria Ines Acetonide needed Ledy - PNP-BC, 01/16 Ibclc Epinephrine 08/27 Hx Solution 0.3mg/0.3 1unit as needed Auto-Inject ML s for allergic Ledy, - reactions PNP-BC, 02/19 SPECK DYER Ibclc Baclofen 08/05 Hx Tablets 10mg 180ta 1 by mouth Pomann, bs every 8 [place], - hours as M.D. 08/06 needed for muscle spasms Meloxicam 08/05 Hx Tablets 15mg 90tab 1 by mouth Pomann, s every day c [place], - food M.D. 08/06 Epipen 2-Danielito 07/16 Hx Solution 0.3mg/0.3 2unit use as Anjelica Auto-Inject ML s directed as Raya, - needed for M.D. 08/27 allergic reaction Prednisone 07/16 Hx Tablets 10mg 36tab take 5 tabs Anjelica, s daily x 3 Raya, - days, 4 tabs M.D. 07/25 x 2 days, tabs x 2 days, 2 tabs x 2 days, 1 tab x 3 days, total 12 days Prednisone 07/13 Hx Tablets 50mg 4tabs 1 po q am Lorenzo until gone MD Margy - 07/16 Cipro 06/20 Hx Tablets 250mg 6tabs 250 mg by Anjelica, mouth every , - 12 hours x 3 M.D. Tylenol 06/17 Hx Capsules 325mg 60cap 2 tab by Anjelica, s mouth q 4 Raya, - hours M.D. 08/05 Azithromycin 06/10 Hx Tablets 250mg 6tabs 1 tab take 2 J15.9 Anjelica, tabs x daily Raya, - days then 1 M.D. 06/17 for 4 Prednisone 06/10 Hx Tablets 50mg 5tabs 1 tab by Tavares15.9 Anjelica, mouth every , - day for 5 M.D. 06/17 days, used before without adverse effects Guaifenesin 06/10 Hx Tablets 400mg 30tab 1 tab by J15.9 Anjelica, s mouth every , - 4 hours as M.D. 08/05 needed cough Oseltamivir 06/02 Hx Capsules 75mg 10cap 1 po bid for R50.9 Mraia Ines, Phosphate /2017 s 5 days Ledy, - PNP-BC, 06/07 SPECK DYER, Ibclc Potassium 05/14 Hx Packet 20Meq 1 dose by E87.6 Anjelica, Chloride mouth once a , - day M.D. 05/14 Potassium 05/14 Hx Tablets ER 20Meq 90tab 1 by mouth E87.6 Anjelica, Chloride ER /2017 s every day on Raya, - days taking M.D. 08/05 lasix Potassium 03/25 Hx Tablets ER 20Meq 60tab 2 By Mouth E87.6 Anjelica, Chloride ER /2016 s Every Day RayaAsael reinoso M.D. 05/14 Potassium 03/20 Hx Tablets ER 10Meq 90tab 1 by mouth E87.6 Anjelica, Chloride ER /2016 s every day Asael Dos Santos M.D. 03/25 Potassium 03/18 Hx Tablets ER 20Meq 20tab 1 by mouth Anjelica, Chloride Mony s qid x 5 days Raya, ER - M.DChadwick 03/20 Furosemide 02/19 Hx Tablets 40mg 30tab 1 By Mouth Anjelica, s Every Day Asael Dos SantosDChadwick 08/05 Polyethylene 02/13 Hx Powder 3350NF 527gm 17 g by Anjelica, Glycol 3350 /2016 mouth every Raya, - day until M.D. 08/05 normal bms Furosemide 02/13 Hx Tablets 20mg 30tab 1 By Mouth Anjelica, s Every Day Asael Dos Santos M.D. 02/19 Ciprofloxacin 01/15 Hx Tablets 250mg 6tabs 1 tab by Anjelica, HCL mouth q12 x Raya - 3 days M.D. 03/14 Metamucil 01/13 Hx Capsules 0.52gm 2 Caps Lorenzo, 2X/Day MD Margy - 03/18 Linzess 01/01 Hx Capsules 290mcg 30cap Administer s at least 30 Asael Dos Santos minutes M.D. 03/18 before the first meal of the day on an empty stomach Amitiza 01/01 Hx Capsules 24mcg 60cap take 1 Anjelica s capsule by Raya - mouth two M.D. 01/13 times a day Gasx 12/12 Hx 1 qd Asael Dos Santos M.DChadwick 07/25 Venlafaxine 12/12 Hx Tablets 100mg 60tab 1 By Mouth Anjelica, HCL s Twice A Day Asael Dos Santos M.D. 08/06 Glycerin Adult 11/22 Hx Suppository 2gm 30uni 1 ts suppository Raya - rectally M.D. 12/12 daily until regular BMs Enema Mineral 11/22 Hx Enema 133ml 133 mL as a Anjelica, single dose Asael Dos Santos M.D. 12/12 Senna 11/21 Hx Tablets 8.6mg 30tab 1 by mouth @ Anjelica s at bedtime Raya - M.D. 11/22 Venlafaxine 11/12 Hx Tablets 50mg 60tab 1 Tab PO bid Anjelica, HCL s Raya, - M.D. 12/12 Venlafaxine 11/08 Hx Tablets 25mg 60tab Take 1 Tab Anjelica, s By Mouth Raya, - Twice A Day M.D. 11/12 Venlafaxine 11/05 Hx Tablets ER 37.5mg 30tab 1 Tab By Anjelica, HCL ER 24HR s Mouth Every Raya, - Daily M.D. 11/08 Diazepam 08/19 Hx Tablets 5mg 6tabs 1 by mouth 1 hour before MD Margy - flying; august 23 repeat after 30 min. if needed Reference #: [id number] Symbicort 06/28 Hx Aerosol 80-4.5mcg 13.8u 2 puffs R06.02 /Act nits inhaled Raya, - twice a day M.D. 07/10 Montelukast 06/28 Hx Tablets 10mg 30tab 1 By Mouth R06.02 , s Every Day Raya, - M.D. 07/10 Azithromycin 06/19 Hx Tablets 250mg 6tabs 1 tab take 2 tabs x daily Raya, - days then 1 M.D. 06/28 for 4 days Prednisone 06/19 Hx Tablets 50mg 5tabs 1 tab by mouth every , - day for 5 M.D. 06/28 days patient reports she has taken in the past without symptoms Buspirone HCL 04/05 Hx Tablets 10mg 1 by mouth F41.9 , - M.D. 04/05 Buspirone HCL 04/05 Hx Tablets 15mg 90tab 1/2 tab po F41.9 s qod for 2 Raya, - more times M.D. 08/27 and then d/ Ketoconazole 03/19 Hx Cream 2% 60gm apply to B37.2 affected Raya, - area once M.D. 07/10 daily, not use for more than 2 weeks Duloxetine HCL 03/[address] Boland 30mg 30cap Take One F33.1 s Capsule By Raya, - Mouth Every M.D. 08/05 Day 60MG To Total 90MG/Day Topiramate 03/05 Hx Tablets 100mg 30tab 1.5 Tabs G40.909 s Twice A Day Raya, - M.D. 08/06 Morphine 03/05 Hx Solution 20mg/ml 50ml 1 Tab Twice , A Day Raya, (Concentrate) - M.D. 07/16 Stool Softener 03/05 Hx Capsules 100mg 60cap 1 by mouth s twice a day Raya, - as needed M.D. 08/05 Allergy 4 Hour 03/05 Hx Tablets 4mg Raya, - M.D. 03/05 03/05 Hx Tablets 14-0.4mg 1 by mouth , every day Raya, - M.D. 12/12 Buspirone HCL 03/05 Hx Tablets 7.5mg 120ta 1 Tab By F41.9 bs Mouth qid Raya, - M.D. 04/05 R83-Oabcoq Hx Chewtabs 1mg 1 tabl by Unknown /0000 mouth every - day 07/10 Cetirizine HCL Hx Tablets 10mg 1 by mouth Unknown /0000 every day - 02/[address]x [address] Boland 60mg 30cap take one cap F33.1 Anjelica, s by mouth Raya, - every daily M.D. 08/05 Ventolin HFA Hx Aerosol 108(90Bas 1-2 puffs J45.20 Unknown /0000 e) every 4-6 - mcg/Act hours as 07/10 Doxycycline Hx Tablets 100mg 1 tab po bid Unknown Hyclate / - 09/06 Morphine Hx Tablets 7.5mg 1 tab po as Unknown Sulfate /0000 needed max 2 - per day 08/27 Morphine Hx Tablets ER 15mg 1 tab po bid Unknown Sulfate ER / - 08/05 Voltaren Hx Gel 1% Unknown / - 08/05 Cetirizine HCL Hx Tablets 10mg TK 1 T PO Unknown qpm - 08/06 Hydrocodone-Ac Hx Tablets 10-325mg Unknown etaminophen / - 01/16 [address]ox[address] H[address] Hx C[address] Boland 30mg 90cap 1 By Mouth M79.7 Maria Ines , / s Every In The Ledy, - Morning PNP-BC, 11/05 SPECK DYER, Ibclc F41.9 F33.1 Eletriptan - Hx Tablets 40mg González, Hydrobromide 02/19/2018 MD Wing Voltaren - Hx Gel 1% Unknown 01/19/2018 Duloxetine HCL - Hx Caps DR 60mg 90ca Take One Cap M79. Raya Caballero, 11/05/2017 Part ps By Mouth Every 7 M.D. Daily, Is Trying Taper Currently, Take as Instructed F41.9 F33.1 Immunizations CPT Code Status Date Vaccine Lot # [id number] Refused 02/16/2018 Influenza Vaccine (Fluzone) Age 3 And Older [id number] Refused 03/05/2016 Influenza Vaccine (Fluzone) Age 3 And Older Vital Signs Date Vital Result Comment 02/24/2018 BP Systolic Sitting Left Arm 104 mmHg BP Diastolic Sitting Left Arm 64 mmHg 02/10/2018 BP Systolic Sitting Right Arm 116 mmHg BP Diastolic Sitting Right Arm 72 mmHg Body Temperature 98.0 F Heart Rate 114 /min Height 61 inches 5'1" [place] body weight in kilograms 48 01/16/2018 BP [...] Rate 112 /min Height 63 inches 5'3" [place] body weight in kilograms 52 08/27/2017 BP Systolic 122 mmHg BP Diastolic 76 mmHg Body Temperature 99.3 F Heart Rate 99 /min Respiratory Rate 17 /min Height 63 inches 5'3" Weight 150.00 lb per patient BMI (Body Mass Index) 26.6 kg/m2 BSA (Body Surface Area) 1.71 m2 [place] body weight in kilograms 52 O2 % BldC Oximetry 97 % 08/18/2017 BP Systolic Sitting Right Arm 105 mmHg BP Diastolic Sitting Right Arm 76 mmHg Body Temperature 99.6 F Heart Rate 108 /min Respiratory Rate 17 /min Height 63 inches 5'3" [place] body weight in kilograms 52 08/06/2017 BP Systolic Sitting Right Arm 118 mmHg BP Diastolic Sitting Right Arm 70 mmHg Body Temperature 99.2 F Height 63 inches 5'3" [place] body weight in kilograms 52 08/05/2017 BP Systolic Sitting Left Arm 117 mmHg BP Diastolic Sitting Left Arm 89 mmHg Body Temperature 99.6 F Heart Rate 99 /min Weight 150.00 lb reported O2 % BldC Oximetry 97 % Ra Pain Level 5 07/09/2017 BP Systolic Sitting Left Arm 102 mmHg BP Diastolic Sitting Left Arm 62 mmHg Height 62 inches 5'2" [place] body weight in kilograms 50 06/17/2017 BP Systolic Sitting Left Arm 100 mmHg BP Diastolic Sitting Left Arm 64 mmHg Body Temperature 98.8 F Height 62 inches 5'2" [place] body weight in kilograms 50 06/10/2017 BP Systolic Sitting Left Arm 116 mmHg BP Diastolic Sitting Left Arm 74 mmHg Heart Rate 106 /min Respiratory Rate 20 /min O2 % BldC Oximetry 98 % 06/02/2017 BP Systolic 118 mmHg BP Diastolic 80 mmHg Body Temperature 99.9 F Heart Rate 111 /min Respiratory Rate 19 /min Height 65.6 inches 5'5.60" [place] body weight in kilograms 58 O2 % BldC Oximetry 97 % 05/14/2017 BP Systolic Sitting Left Arm 116 mmHg BP Diastolic Sitting Left Arm 68 mmHg Height 65.6 inches 5'5.60" [place] body weight in kilograms 58 04/23/2017 BP Systolic Sitting Left Arm 122 mmHg BP Diastolic Sitting Left Arm 72 mmHg Height 65.6 inches 5'5.60" [place] body weight in kilograms 58 03/25/2017 BP [...] Rate 119 /min Height 65.6 inches 5'5.60" [place] body weight in kilograms 58 O2 % BldC Oximetry 95 % 01/13/2017 BP Systolic Sitting Left Arm 108 mmHg BP Diastolic Sitting Left Arm 70 mmHg Body Temperature 98.9 F Height 65.6 inches 5'5.60" [place] body weight in kilograms 58 12/12/2016 BP Systolic Sitting Left Arm 106 mmHg BP Diastolic Sitting Left Arm 68 mmHg Height 65.6 inches 5'5.60" [place] body weight in kilograms 58 09/10/2016 BP Systolic Sitting Left Arm 98 mmHg BP Diastolic Sitting Left Arm 52 mmHg Height 60.6 inches 5'0.60" [place] body weight in kilograms 47 07/22/2016 BP Systolic Sitting Left Arm 92 mmHg BP Diastolic Sitting Left Arm 68 mmHg Heart Rate 80 /min Respiratory Rate 16 /min Height 60 inches 5'0" Weight 150.00 lb BMI (Body Mass Index) 29.3 kg/m2 BSA (Body Surface Area) 1.65 m2 [place] body weight in kilograms 45 07/16/2016 BP Systolic Sitting Right Arm 106 mmHg BP Diastolic Sitting Right Arm 60 mmHg Body Temperature 99.5 F Heart Rate 84 /min Respiratory Rate 16 /min 07/10/2016 BP Systolic Sitting Right Arm 112 mmHg BP Diastolic Sitting Right Arm 64 mmHg Body Temperature 99.4 F Heart Rate 94 /min Height 60 inches 5'0" [place] body weight in kilograms 45 O2 % [...] Rate 16 /min Height 60 inches 5'0" [place] body weight in kilograms 45 O2 % [...] kg/m2 BSA (Body Surface Area) 1.70 m2 [place] body weight in kilograms 47 O2 % BldC Oximetry 97 % 03/05/2016 BP Systolic 102 mmHg BP Diastolic 78 mmHg Heart Rate 98 /min Respiratory Rate 16 /min Height 61.5 inches 5'1.50" Weight 159.00 lb BMI (Body Mass Index) 29.6 kg/m2 BSA (Body Surface Area) 1.72 m2 [place] body weight in kilograms 49 Results Test [...] 6 Lymph % 36.9 % 20.0-42.0 6 [place] % 9.6 % 4.3-13.2 6 Eo% 0.0 % 0.0-6.6 6 Bas% 0.0 % 0.0-1.1 6 Neut# 3.98 K/uL 1.8-7.0 6 Lymph # 2.74 K/uL 1.0-4.0 6 [place] # 0.71 K/uL 0.3-0.9 6 Eos # [...] 7 Lymph % 37.7 % 20.0-42.0 7 [place] % 8.4 % 4.3-13.2 7 Eo% 0.0 % 0.0-6.6 7 Bas% 0.0 % 0.0-1.1 7 Neut# 5.86 K/uL 1.8-7.0 7 Lymph # 4.11 K/uL High 1.0-4.0 7 [place] # 0.92 K/uL High 0.3-0.9 7 Eos [...] Lymph % 44.1 % High 20.0-42.0 28 [place] % 12.2 % 4.3-13.2 28 Eo% 0.0 % 0.0-6.6 28 Bas% 0.1 % 0.0-1.1 28 Neut# 3.47 K/uL 1.8-7.0 28 Lymph # 3.51 K/uL 1.0-4.0 28 [place] # 0.97 K/uL High 0.3-0.9 28 Eos [...] Lymph # 5.65 K/uL High 1.0-4.0 31 [place] # 1.29 K/uL High 0.3-0.9 31 Eos [...] Lymph % 44.3 % High 20.0-42.0 39 [place] % 9.3 % 4.3-13.2 39 Eo% 2.3 % 0.0-6.6 39 Bas% 0.6 % 0.0-1.1 39 Neut# 3.38 K/uL 1.8-7.0 39 Lymph # 3.45 K/uL 1.0-4.0 39 [place] # 0.72 K/uL 0.3-0.9 39 Eos # [...] Lymph % 42.7 % High 20.0-42.0 42 [place] % 10.1 % 4.3-13.2 42 Eo% 1.6 % 0.0-6.6 42 Bas% 0.7 % 0.0-1.1 42 Neut# 3.02 K/uL 1.8-7.0 42 Lymph # 2.88 K/uL 1.0-4.0 42 [place] # 0.68 K/uL 0.3-0.9 42 Eos # 0.11 K/uL 0.0-0.5 42 Baso # 0.05 K/uL 0.0-0.1 42 Anticoagulant Therapy? NO 42 Protime 09/10/2016 Protime 13.0 seconds 12.0-14.4 42 Inr 1.0 0.9-1.1 42, 43 Anticoagulant Therapy? NO 42 Act Partial Thrombo 09/10/2016 Act Partial Thrombo 32.7 seconds 23.4- 35.0 42 Time Time Anticoagulant Therapy? NO 42 Laboratory test finding 09/10/2016 Treponema Antibody [place] Negative Negative 42 Hepatitis C Antibody < [...] 8-16 SerPl-sCnc SerPl-sCnc Albumin/Glob 07/10/2016 Albumin/Glob 0.8 SerPl SerPl Albumin 07/10/2016 Albumin 3.4 3.4-5.0 SerPl-mCnc SerPl-mCnc Ast SerPl-cCnc 07/10/2016 Ast SerPl-cCn 12 Low 15-37 Alt SerPl-cCnc 07/10/2016 Alt SerPl-cCnc 19 12-78 Alp SerPl-cCnc 07/10/2016 [facility]p [facility] 112 45-117 Laboratory test 07/10/2016 CK 17 [...] 47 Lymph % 41.6 % 20.0-42.0 47 [place] % 9.0 % 4.3-13.2 47 Eo% 2.4 % 0.0-6.6 47 Bas% 0.6 % 0.0-1.1 47 Neut# 3.36 K/uL 1.8-7.0 47 Lymph # 3.00 K/uL 1.0-4.0 47 [place] # 0.65 K/uL 0.3-0.9 47 Eos # [...] High 100 - 108 Co2 25 mmol/L 22 - 31 Creatinine 0.84 mg/dL 0.60 - 1.00 GFR MDRD Af Amer >60 >59 ml/min/1.73m2 GFR MDRD Non Af Amer >60 >59 ml/min/1.73m2 Glom Filt Rate, Est See Notes Glucose 120 mg/dL High 70 - 99 Potassium 3.9 mmol/L 3.6 - 5.2 Sodium 141 mmol/L 136 - 145 Urea nitrogen 10 mg/dL 7 - 24 Monocytes # Bld Auto 07/10/2016 Monocytes # [...] 1:80 Positive >1:80 Performed at: - [facility] [address] [id number] It Network Administrator: Stephanie Christie MD, Phone: [phone] 12 B34.9 13 Please Note: A POSITIVE result for [...] FOR TWO TESTS 17 Performed at: - [facility] [id number] It Network Administrator: Abdelrahman Wright MD, Phone: [phone] E16.2 E87.6 19 Reference Range: All [...] DVT, or Pulmonary embolism as clinically indicated. ([facility] has established a 97.89% negative predictive [...] may be found at [email or web address]. 33 CALLED DOILON Coffman R.N. IN ER WITH POTASSIUM RESULT AT 0203 03/04/17 by LAB.TOW NO SERUM TUBE RECEIVED 34 0.0 - [...] INDICATED,SLIDE SENT Hematology Consultation Final Report Case# [id number] Final Diagnosis Review of peripheral blood smear [...] polycythemia and polycthemia vera should be done. NOHEMY 03/04/17 Gross Description Peripheral blood smear Clinical Data Absolute lymphocytosis and increased Hgb/HCT Cher Leonard MD Reported 03/04/2017 at 7:52PM, Report electronically signed Performed at: [facility] [id number] [place] [address] 03/05/17 0834: PATH REVIEW: previously reported as: INDICATED,SLIDE SENT Amended result called to: - 03/05/17 at 0834 37 LEGS, SWELLING, CAN'T WALK 38 <=0.49 ug/mL - Low likelihood of DIC, DVT or Pulmonary Embolism >0.49 ug/mL - Additional testing should be done to rule out DIC, DVT, or Pulmonary embolism as clinically indicated. ([facility] has established a 97.89% negative predictive value for thrombotic disease when a cutoff value of 0.5 ug/mL is used.) 39 SENT BY , BLOOD CLOT? 40 <=0.49 ug/mL - Low likelihood of DIC, DVT or Pulmonary Embolism >0.49 ug/mL - Additional testing should be done to rule out DIC, DVT, or Pulmonary embolism as clinically indicated. ([facility] has established a 97.89% negative predictive value for thrombotic disease when a cutoff value of 0.5 ug/mL is used.) 41 Negative <0.91 Equivocal 0.91 - 1.09 Positive >1.09 Performed at: [facility] [employer] [id number] It Network Administrator: Stephanie Christie MD, Phone: [phone] 42 S80.12XA Z11.3 43 THERAPEUTIC INR RANGE: [...] with a HCV Nucleic Acid Amplification test (519054). Performed at: [address] [id number] It Network Administrator: Abdelrahman Wright MD, Phone: [phone] Performed at: [address] [id number] It Network Administrator: Stephanie Christie MD, Phone: [phone] A negative result for either C. trachomatis and/or N. gonorrhoeae does not preclued an infection because results are dependent on adequate specimen collection, absence of inhibitors, and sufficient DNA to be detected. 46 Performed at: - [facility] [address] [id number] It Network Administrator: Stephanie Christie MD, Phone: [phone] CABALLERO,RT SIDE ABD [...] DVT, or Pulmonary embolism as clinically indicated. ([facility] has established a 97.89% negative predictive value for thrombotic disease when a cutoff value of 0.5 ug/mL is used.) Procedures Date CPT Code Description Status Comment 08/05/2017 90656 Radiologic Exam Hip Unilateral Completed With Pelvis 2-3 Views 06/02/2017 93628 Pulse Oximetry Completed 03/18/2017 21267 EKG-Tracing And Report Completed 08/13/2016 82161 Bronchospasm Provocation Completed Evaluation Multi Spirometric Determinati 08/13/2016 21179 Spirometry Completed 08/13/2016 30282 Echocardiogram Complete Completed 07/22/2016 13659 EKG-Tracing And Report Completed 04/21/2016 Mammogram Completed ordered with [employer] in [place] 08/28/2012 44935 Echocardiogram Complete Completed 08/28/2012 71800 Event Monitor Inter/Review Only Completed 09/21/2008 21904 Holter Monitor 24HR Completed Inter/Report Encounters Type Date Location Provider CPT E/M Dx Office Visit 02/10/2018 4:30p Family Medicine Ledy Spann PNP-BC, 81306 Z01.818 SPECK DYER, Ibclc N63.20 Office Visit 01/16/2018 2:30p [place] [address] H81.42 L30.9 H53.8 Office Visit 11/05/2017 9:30a Family Medicine Ledy Spann PNP-BC, 37374 F33.1 SPECK DYER, 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 29037 L50.8 F33.1 M25.551 L02.425 Office Visit 08/27/2017 11:00a Family Medicine Ledy Spann PNP-BC, 88550 M79.7 SPECK DYER, Ibclc D22.9 D10.39 Office Visit 08/18/2017 11:00a Orthopaedic Office Chichi Turk, 47718 M25.551 RPAC M25.851 Office Visit 08/06/2017 10:15a Family Medicine Ledy Spann PNP-BC, 05625 L50.8 SPECK DYER, Ibclc F41.9 F33.1 M79.7 Office Visit 08/05/2017 1:15p Orthopaedic Office Chichi Turk, 04559 M25.551 RPAC M16.11 Office Visit 07/09/2017 4:30p Family Medicine Raya Caballero M.D. 60398 L50.8 Office Visit 06/17/2017 1:30p Family Medicine Raya Caballero M.D. 91912 B34.9 Office Visit 06/10/2017 8:45a Family Raya Amador M.D. 38213 J15.9 Office Visit 06/02/2017 1:45p Family Medicine Ledy Spann PNP-BC, 02424 R50.9 SPECK DYER, Ibclc Office Visit 05/14/2017 4:45p Family Medicine Raya Caballero M.D. 63869 Z01.818 G47.30 R60.0 Office Visit 04/23/2017 4:30p Family Medicine Raya Caballero M.D. 51458 E87.6 E16.2 M25.551 Office Visit 03/25/2017 11:00a Family Medicine Raya Caballero M.D. 86336 E87.6 Office Visit 03/20/2017 4:45p Family Medicine Raya Caballero M.D. 25159 E87.6 Office Visit 03/18/2017 11:30a Family Raya Amador M.D. 19355 R06.02 E87.6 R00.0 Office Visit 01/13/2017 3:00p [place] [address] K59.03 Office Visit 12/12/2016 4:00p Family Medicine Raya Caballero M.D. 99062 F41.9 K59.00 M25.561 Office Visit 09/10/2016 3:30p Family Medicine Raya Caballero M.D. 21359 S80.12xA R06.02 F41.9 Z11.3 Office Visit 07/22/2016 2:00p Cardiology Office Huseyin Ware, 59[address] R06.02 [place], [facility] I32 Office Visit 07/16/2016 10:30a Family Raya Amador M.D. 34938 R06.02 Office Visit 07/10/2016 9:30a Family Medicine Raya Caballero M.D. 51013 R06.02 Office Visit 06/28/2016 10:30a Family Raya Amador M.D. 99296 R06.02 Office Visit 06/18/2016 11:30a Family Raya Amador M.D. 90199 F33.1 F41.9 J45.20 Office Visit 04/05/2016 10:15a Raya Benedict M.D. 24874 F33.1 F41.9 G47.00 Office Visit 03/19/2016 11:45a [facility] Raya Caballero M.D. 51859 F41.9 F33.1 G47.00 B37.2 Office Visit 03/05/2016 10:45a [facility] Raya Caballeor M.D. 34134 F41.9 G40.909 M54.5 M79.7 Plan of Care 02/10/2018 - Ledy Spann, PNP-BC, SPECK DYER, PafigG55.818 Encounter for other preprocedural examinationComments:pt is medically cleared for general anesthesia. Treatments have been optimized and she is really a low risk surgical candidate. Advised her that if she does not have EKG at her pre-op testing to return here and we can do one as a nurse visit.N63.20 Unspecified lump in the left breast, unspecified quadrant
[2018-03-25] MEDS ORDERED: Divalproex DR TAB(*) 500 MG PO ONE ×2 (17:41→17:42)
[2018-03-25 18:54] VITALS: BP 126/88
--- NOTE | 2018-03-26 02:40 | CONS ---
CC: Dr. Margy Ventura, Dr. Wing Claudio * CONSULTATION REPORT: DATE OF CONSULT: 03/25/18 HISTORY OF PRESENT ILLNESS: Edyta Singh is a 42-year-old woman with history of seizures since age 12, diagnosed as nonepileptiform events with monitoring at [facility] in 2008. At that time, she had been on Trileptal, Depakote and topiramate on increasing doses with no response. Her episodes had increased in the setting of her dad dying in 2003. There were not only episodes of staring, but also episodes of not breathing. MRI showed slight asymmetry of the hippocampus with left side smaller than the right. Topiramate was weaned during that hospitalization, and she had staring episodes with unresponsiveness and mouth movements with no associated abnormal EEG. She has followed with Dr. Claudio as an outpatient for psychogenic nonepileptiform attacks as well as migraines. She has been on Topiramate for migraines at 100 mg in the morning and 200 at night. Recently, she on her own tapered her topiramate by 50 mg a week and has been off it for 4 days. In the last 4 days, she has felt disoriented with increased episodes of intermittent eye movement with 3 occurring today, as well as a feeling of decreased ability to think and concentrate. She can wake up at night and feel out of it. She was observed by Dr. Pinto to have an episode of eye movements today in the emergency room, which was noted to be significantly abnormal by the doctor with eyes moving rapidly from side to side. Her indicates that they were going to [facility] today, and she said goodbye to her pets and locked the house, and now she does not remember even getting into the car. In the past, she had had difficulties with incontinence in bed, which got better with increasing topiramate, and her incontinence is now back. She also relates having headaches after seizures. She has had no difficulty with taking topiramate in the past. PAST MEDICAL HISTORY: Edyta Singh' past medical history includes seizures with psychogenic nonepileptiform attacks recorded at [facility], anxiety, fibromyalgia, chronic back pain with right leg symptoms to the point that she could not walk. She recently had a spinal cord stimulator placed on the and now can walk. She has complex regional syndrome, pericarditis, hiatal hernia, migraines and asthma. PAST SURGICAL HISTORY: Previous surgeries have included hysterectomy, tonsillectomy, 2 eye surgeries and spinal cord stimulator on 03/05/18. CURRENT MEDICATIONS: Include: 1. Effexor 100 mg p.o. b.i.d. 2. Ondansetron 8 mg p.o. t.i.d. p.r.n. nausea. 3. Relpax 40 mg p.r.n. migraine. 4. Topiramate, which is now stopped, which was previously at 100 mg in the morning and 200 at night. 5. Tylenol 325 mg 2 tablets every 4 hours as needed for pain. 6. Voltaren 1% p.r.n. pain. 7. Cetirizine 10 mg p.o. q. day. 8. Cyclobenzaprine 5 mg p.o. q.8 hours. 9. Morphine sulfate extended release 15 mg p.o. b.i.d. 10. Epinephrine 0.3 mg in 0.3 mL injected p.r.n. allergy. ALLERGIES: Include SULFA drugs which cause a rash. She indicates that BECLOMETHASONE as well as FLOVENT both caused nausea and difficulty breathing. She has sensitivities to medications, indicates IBUPROFEN "killed her stomach." She had hives to WELLBUTRIN. When KEPPRA was suggested, she indicated she had dizziness to this. She also indicated she had hair loss to DEPAKOTE. She has had difficulty with allergies to foods including TREE NUTS and SOY PROTEIN. SOCIAL HISTORY: She lives with her . She indicates she is disabled because of seizures. She does not drink alcohol. She does not smoke. She drinks minimal caffeine. FAMILY HISTORY: Includes her mother a year and a half ago with pulmonary embolism. Father at age 54 with brain hemorrhage. Twin sister with glaucoma and complex regional pain syndrome. PHYSICAL EXAMINATION: On examination, her most recent blood pressure was 137/86 , pulse is 93, respiratory rate 21, saturation 94% and temperature was 100.3. She had normal S1 and S2. No murmur and no carotid bruits. Her lungs are clear to auscultation. There was no evidence of peripheral edema or rash. Peripheral pulses were present in her feet. She was awake. She appeared quite tired, but after stimulation when checking Babinski, she appeared more awake and interactive and was able to participate in examination. She knew she was in the hospital. She knew the month and the year. Pupils are equal and responsive to light and fundi were large. She had full extraocular movements and no nystagmus. Full kirk to confrontation. Facial expression, sensation and hearing were equal. Palate was upgoing. Tongue was midline. Sternocleidomastoid and trapezius were 5/5 in strength. There was normal bulk and tone. No pronator drift. Full strength in the upper and lower extremities with normal emcyff-sz-[id number] and kdwb-it-[id number] movements. Vibration sensation was decreased by 5 to 10 seconds at the left toes. Proprioception was intact. She denies any asymmetries to pinprick, cold or light touch. Reflexes were 2+ and symmetric in the upper and lower extremities with flexor response of the toes. Her Romberg was negative. She could get on her heels and her toes and walk forward and backwards without difficulty. DIAGNOSTIC STUDIES/LAB DATA: Data includes CBC with normal white count, normal hemoglobin, hematocrit and platelets. INR and PTT were within normal limits. Complete metabolic panel showed lactic acid that was elevated at 3.6. Her glucose was elevated at 122. Liver function tests were within normal limits. TSH was 1.42. Serum alcohol was 5. Her chest x-ray showed no evidence for active disease. IMPRESSION: A 42-year-old woman with history of migraines and episodes that were monitored and felt to be psychogenic nonepileptiform attacks, now admitted with episodes of abnormal rapid eye movements as well as disorientation, decreased concentration in the setting of stopping her topiramate, and being off it for 4 days. Her EEG in the emergency room showed episodic short segments of generalized slowing in the 4 Hz range with some more frontal predominant sharp components. Please see dictation for further details. Of note, the discrete short 1-3 second episodes of generalized slowing abruptly started and stopped, with normal background activity before and after the episodes. The history of coming off topiramate and the findings on EEG are suggestive of having an underlying generalized epilepsy disorder. Most likely she has a combination psychogenic nonepileptiform attacks as well as epilepsy. Topiramate should be restarted. She has tolerated this in the past, and it can treat both migraines and epilepsy. Unfortunately, if started too quickly, this can cause confusion. She will try starting at 50 mg p.o. b.i.d.; however, this may be too much and too quickly. We discussed potentially putting her on another antiepileptic medication in the interim to prevent seizures. I am concerned about the number of seizures that she has had. I offered Keppra IV 1000 mg followed by 500 mg b.i.d.; however, the patient refused this medication as she felt that made her dizzy. I discussed with her using Depacon and she refused IV, but agreed to 1000 mg at two 500 mg doses to give her further protection this evening. She will be seeing Dr. Claudio in the morning. Her clearly verbalized understanding that if there is any further loss of consciousness or decline, she is to return and be admitted to the hospital. Dr. Claudio was made aware of the clinical situation. The patient was walked on the hallway to the bathroom prior to discharge and was stable and alert. Over an 90 minutes was spent in the patient's care and all questions were answered. [id number]/[facility] #: [id number] JAMI
--- NOTE | 2018-03-26 12:40 | EEG ---
ELECTROENCEPHALOGRAPHY: DATE OF STUDY: 03/25/18. CLINICAL PROBLEM: Edyta Singh is a 42-year-old woman with history of episodes of staring and unresponsiveness, who was brought into the emergency room with repeat episodes of episodic eye movement, as well as progressive confusion and difficulty with cognition in the setting of weaning topiramate, which she had been taking for migraines. She had previously been monitored for epilepsy in the past, had been told she had nonepileptic seizures. In the setting of tapering her topiramate, she started having increased spells. She had complained of weakness and shortness of breath. REPORT: This is a 16-channel EEG performed at bedside in the emergency room. In the beginning of the record, there was posterior dominant 8 Hz alpha rhythm, which was symmetric and attenuated with eye opening. Soon after the record began, there were episodic generalized changes that would happen out of normal background rhythm, lasting 1 to 3 seconds with high amplitude waves in the theta and mainly delta range. There was predominance in the frontal lobe with a sharp component with after going slow wave in some of these discharges. As the record continued, there continued to be intermittent episodes of slowing which were discrete and again occurred out of normal background rhythm. With most of these episodes, the slowing was in the 4 Hz range. Between these episodes, background rhythm was normal. IMPRESSION: This is an abnormal EEG. There was episodic 4 to 5 Hz slowing lasting approximately 1 to 3 seconds with more frontal predominance and at times associated with sharply contoured waves. These findings are highly suspicious for generalized epilepsy. cc: Wing Claudio MD [id number]/[facility] #: [id number] JAMI
== END 2018-03-25 18:50 | disposition home or self-care (01) ==
LOC: ED 13:24
DX: G40.909 Epilepsy, unspecified, not intractable, without status epilepticus (principal); R00.0 Tachycardia, unspecified
CPT/HCPCS: 36415; 71045; 80053; 80320; 83605; 83735; 84443; 85025; 85610; 85730; 93005; 95816; 96372; 99282; A9270-GY; G0480; J2060

== ENCOUNTER 2018-09-10 15:41 | Emergency (ER) | payer MEDICARE, MEDICAID ==
--- NOTE | 2018-09-10 15:56 | ED ---
Abdominal Pain/Female - HPI Summary HPI Summary: 42 yr old with abdominal pain, syncope. Onset of abdominal pain two days ago. Onset of syncope a couple of weeks ago, and reports she passes out a couple of times each day. She has had dry heaving, but denies any diarrhea or blood in stool. She had a hysterectomy in 2013 - History of Current Complaint Stated Complaint: FATIGUE,ABD PAIN,CHEST PAIN Time Seen by Provider: 09/10/18 15:50 Allergies/Adverse Reactions: Allergies Allergy/AdvReac Type Severity Reaction Status Date / Time bupropion [From Wellbutrin] Allergy Hives Verified 10/11/17 10:26 ibuprofen Allergy Unknown Verified 10/11/17 10:26 Reaction Details Penicillins Allergy Unknown Verified 10/11/17 10:26 Reaction Details Sulfa (Sulfonamide Allergy Unknown Verified 10/11/17 10:26 Antibiotics) Reaction Details "a ton of 'em [foods]" Allergy Unknown Uncoded 10/11/17 10:26 Reaction Details PMH/Surg Hx/FS Hx/Imm Hx Endocrine/Hematology History: Denies: Hx Diabetes Cardiovascular History: Denies: Hx Hypertension Respiratory History: Reports: Hx Asthma History: Denies: Hx Dialysis, Hx Renal Disease Sensory History: Denies: Hx Legally Blind, Hx Deafness Opthamlomology History: Denies: Hx Legally Blind - Cancer History Cancer Type, Location and Year: None reported - Surgical History Surgery Procedure, Year, and Place: Hysterectomy, bi- eye muscles, L ankle, T & A, hiatal hernia. surgery for pericardial effusion. breast lift and tummy tuck - Family History Known Family History: Positive: Hypertension - Social History Alcohol Use: None Substance Use Type: Reports: Prescribed Smoking Status (MU): Never Smoked Tobacco Review of Systems Constitutional: Negative Positive: Abdominal Pain, Nausea. Negative: Vomiting - dry heaving Skin: Negative All Other Systems Reviewed And Are Negative: Yes Physical Exam Triage Information Reviewed: Yes Vital Signs Reviewed: Yes Appearance: Positive: Well-Appearing, No Pain Distress Skin: Positive: Warm, Skin Color Reflects Adequate Perfusion Head/Face: Positive: Normal Head/Face Inspection Eyes: Positive: EOMI, [place] Neck: Positive: Nontender Respiratory/Lung Sounds: Positive: Clear to Auscultation, Breath Sounds Present Cardiovascular: Positive: RRR. Negative: Murmur Abdomen Description: Positive: Other: - tender to. Negative: Distended Musculoskeletal: Positive: Strength/ROM Intact Neurological: Positive: Sensory/Motor Intact, Alert, Oriented to Person Place, Time, CN Intact II-III Psychiatric: Positive: Normal Diagnostics - Laboratory Lab Statement: Any lab studies that have been ordered have been reviewed, and results considered in the medical decision making process. - EKG 09/10/18 Cardiac Rate: NL EKG Rhythm: Sinus Rhythm ST Segment: Non-Specific - diffuse t wave abnormality Ectopy: None Abdominal Pain Fem Course/Dx - Course Course Of Treatment: 42 yr old female with abdominal pain, reported syncope. Transfer by ambulance. She requests [facility]. Dr Brennan aware the patient is coming for further eval. - Diagnoses Provider Diagnoses: Epigastric abdominal pain Discharge - Sign-Out/Discharge Documenting (check all that apply): Patient Departure All imaging exams completed and their final reports reviewed: No Studies - Discharge Plan Condition: Good Disposition: TRANS HIGHER LVL OF CARE FAC Referrals: Ledy Spann NP [Primary Care Provider] - - Billing Disposition and Condition Condition: GOOD Disposition: Trans Higher Lvl of Care Fac
--- OUTSIDE RECORDS SUMMARY | 2018-09-10 16:00 | XMS REPORT | Continuity of Care Document ---
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 Onset: 03/05/2016 Epilepsy Raya Caballero M.D. Onset: 03/05/2016 Low back pain Raya Caballero M.D. Onset: 03/05/2016 Fibromyalgia Raya Caballero M.D. Onset: 03/05/2016 Moderate recurrent major depression Raya Caballero M.D. Onset: 03/19/2016 Insomnia Raya Caballero M.D. Onset: 03/19/2016 Dyspnea Huseyin Ware M.D., [facility] Onset: 07/22/2016 Acute pericarditis associated with Huseyin Ware M.D., [facility] Onset: 06/2016 another disorder Drug-induced constipation Margy Ventura MD Onset: 01/13/2017 Urticaria Raya Caballero M.D. Onset: 07/09/2017 Complex regional pain syndrome Ledy Spann, PNP-BC, [employer], Onset: 08/08/2017 Ibclc Vertigo of central origin Margy Ventura MD Onset: 01/16/2018 Contact dermatitis Margy Ventura MD Onset: 01/16/2018 Visual disturbance Margy Ventura MD Onset: 01/16/2018 Family History Date Family Member(s) Observation Comments : (age 54 Father due to Brain Years) Hemorrhage Mother Lupus Mother varicose veins Mother Hypertension Siblings 2 First Sister Alive Twin Sister First Sister Glaucoma : (age 78 Grandfather due to Heart Disease Years) Grandmother Cataracts Grandmother due to Hypertension () : (age 91 Grandmother due to Congestive Years) Heart Failure Grandmother Glaucoma Social History Type Date Description Comments Sex Unknown Marital Status Lives With Diet Vegetarian Pets Bird many...breads them Pets several cats Pets 1 dog 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 Hobbies birds Tobacco Use Start: Unknown Never Smoked Cigarettes Smoking Status Reviewed: 08/20/18 Never Smoked Cigarettes ETOH Use Currently consumes alcohol socially Tobacco Use Start: Unknown Patient has never smoked Recreational Drug Use Sporadically uses Marijuana Allergies, Adverse Reactions, Alerts Active Allergies Reaction Severity Comments Date Flovent 03/01/2016 Ibuprofen GI upset Moderate not allergic 03/01/2016 Penicillin 03/01/2016 Sulfa Drugs 03/01/2016 Wellbutrin 03/01/2016 Pantoprazole 12/12/2016 Beclomethasone 12/12/2016 Wheat 08/05/2017 Tree Nuts 08/05/2017 Soy Proteins 08/05/2017 Dairy 11/05/2017 Medications Active Medications SIG Qnty Indications Ordering Date Provider Flac 1-2 drops in 20ml L30.9 Ledy Spann, 08/20/2018 0.01% Oil left ear bid as PNP-BC, [employer], needed Ibclc Silver Sulfadiazine apply twice a 25gm L02.02 Ledy Spann, 08/20/2018 1% day to forehead PNP-BC, [employer], Cream Ibclc Buspirone HCL 1 by mouth four 120tabs F41.9 Ledy Spann, 08/20/2018 5mg Tablets times a day as PNP-BC, [employer], needed Ibclc Ondansetron HCL take 1 tablet by 90tabs Ledy Spann, 08/01/2018 8mg Tablets mouth every 6 PNP-BC, [employer], hours as needed Ibclc Duloxetine HCL take one cap by 30caps F33.1 Ledy Spann, 07/10/[address] mouth every PNP-BC, [employer]CH[employer]IAN, Part daily Ibclc Duloxetine HCL Take One Capsule 30caps F33.1 Ledy Spann, 07/10/[address] By Mouth Every PNP-BC, [employer] TECH[employer]IAN, Part Day With 60MG To Ibclc Total 90MG/Day Venlafaxine HCL Take 3 Tablets 180tabs Ledy Spann, 06/26/2018 50mg By Mouth Twice PNP-BC, [employer]IAN, Tablets Daily Ibclc Cyclobenzaprine HCL Take 1 Tablet By 90tabs Ledy Spann, 03/11/2018 5mg Mouth Three PNP-BC, [employer]IAN, Tablets Times Daily as Ibclc Needed Zantac 150 Maximum 1 po as needed L50.8 Ledy Spann, 08/06/2017 Strength for hives PNP-BC, [employer], 150mg Tablets Ibclc Topamax one tab by mouth Unknown 200mg Tablets twice a day mdd 2 Zyrtec Allergy 1 tab by mouth Unknown 10mg Tablets every night Relpax as needed. Unknown 40mg Tablets Voltaren Unknown 1% Gel Morphine Sulfate ER 1 by mouth twice 60tabs Ledy Spann, 15mg a day Reference PNP-BC, [employer] TECH[employer]ICIAN, Tablets ER #: [id number] Ibclc History Medications Venlafaxine HCL ER 1 po bid Ledy Spann, 02/19/2018 - PNP-BC, [employer] TECH[employer]IAN, 02/19/2018 150mg Tablets ER Ibclc 24HR Venlafaxine HCL 2 tabs po bid 120tabs Ledy Spann, 01/28/2018 - 50mg PNP-BC, [employer]IAN, 02/19/2018 Tablets Ibclc Meclizine HCL 1/2 to 1 tabs by 14tabs H81.42 Lorenzo, 01/16/2018 - 25mg mouth 3 times a MD Margy 06/29/2018 Tablets day as needed vertigo Mupirocin apply to affected 22gm L30.9 Lorenzo, 01/16/2018 - 2% Ointment area 3 times a day MD Margy 02/10/2018 as needed Betamethasone apply to affected 45gm Lorenzo, 01/16/2018 - Dipropionate areas at bedtime, MD Margy 01/16/2018 0.05% may use 2x/day if Cream needed Betamethasone apply to affected 15gm Lorenzo, 01/16/2018 - Valerate areas 3x/day as MD Margy 02/10/2018 0.1% Cream needed; okay to take with flovent allergy Venlafaxine HCL 1 by mouth bid 180tabs Ledy Spann, 12/10/2017 - 100mg PNP-BC, [employer]IAN, 01/28/2018 Tablets Ibclc Buspirone HCL take one tablet by 60tabs Ledy Spann, 10/15/2017 - 15mg mouth four times a PNP-BC, [employer]IAN, 01/16/2018 Tablets day as needed Ibclc Venlafaxine HCL 1 Tab PO bid 180tabs F33.1 Raya Caballero, 10/01/2017 - 50mg M.D. 11/05/2017 Tablets Folic Acid 1 po qday 90tabs Ledy Spann, 09/29/2017 - 800mcg PNP-BC, [employer]ICIAN, 01/16/2018 Tablets Ibclc Permethrin apply to body and 60gm Ledy Spann, 09/16/2017 - 5% Cream wash off after 12 PNP-BC, [employer]CH[employer]ICIAN, 11/05/2017 hours. Ibclc Prednisone 5 tabs today, then QS Ledy Spann, 09/12/2017 - 10mg 4 tabs tomorrow, 3 PNP-BC, [employer]CH[employer]ICIAN, 09/17/2017 Tablets tabs day 3, 2 tabs Ibclc day 4, and 1 tab day 5 Triamcinolone apply bid as 15gm Ledy Spann, 09/04/2017 - Acetonide needed PNP-BC, [employer]IAN, 01/16/2018 0.025% Ibclc Ointment Epinephrine as needed for 1units Ledy Spann, 08/27/2017 - allergic reactions PNP-BC, [employer]IAN, 02/19/2018 0.3mg/0.3ML Solution Ibclc Auto-Inject Baclofen 1 by mouth every 8 180tabs Israel Quiroga, 08/05/2017 - 10mg Tablets hours as needed M.D. 08/06/2017 for muscle spasms Meloxicam 1 by mouth every 90tabs Israel Quiroga, 08/05/2017 - 15mg day c food M.D. 08/06/2017 Tablets Epipen 2-Danielito use as directed as 2units Raya Caballero, 07/16/2017 - needed for M.D. 08/27/2017 0.3mg/0.3ML Solution allergic reaction Auto-Inject Prednisone take 5 tabs daily 36tabs Raya Caballero, 07/16/2017 - 10mg x 3 days, 4 tabs x M.D. 07/25/2017 Tablets 2 days, 3 tabs x 2 days, 2 tabs x 2 days, 1 tab x 3 days, total 12 days Prednisone 1 po q am until 4tabs Lorenzo 07/13/2017 - 50mg kiara Ji MD 07/16/2017 Tablets Cipro 250 mg by mouth 6tabs Raya Caballero, 06/20/2017 - 250mg Tablets every 12 hours x 3 M.D. 07/09/2017 days Tylenol 2 tab by mouth q 4 60caps Raya Caballero, 06/17/2017 - 325mg hours M.D. 08/05/2017 Capsules Guaifenesin 1 tab by mouth 30tabs J15.9 Raya Caballero, 06/10/2017 - 400mg every 4 hours as M.D. 08/05/2017 Tablets needed cough Prednisone 1 tab by mouth 5tabs J15.9 Raya Caballero, 06/10/2017 - 50mg every day for 5 M.D. 06/17/2017 Tablets days, has used before without adverse effects Azithromycin 1 tab take 2 tabs 6tabs J15.9 Raya Caballero, 06/10/2017 - 250mg x daily days then M.D. 06/17/2017 Tablets 1 for 4 days Oseltamivir 1 po bid for 5 10caps R50.9 Ledy Spann, 06/02/2017 - Phosphate days PNP-TRACIE SOTO, 06/07/2017 75mg Ibclc Capsules Potassium Chloride 1 dose by mouth E87.6 Raya Caballero, 05/14/2017 - once a day M.D. 05/14/2017 20Meq Packet Potassium Chloride 1 by mouth every 90tabs E87.6 Raya Caballero, 05/14/2017 - ER day on days taking M.D. 08/05/2017 20Meq Tablets ER lasix Potassium Chloride 2 By Mouth Every 60tabs E87.6 Raya Caballero, 03/25/2017 - ER Day M.D. 05/14/2017 20Meq Tablets ER Potassium Chloride 1 by mouth every 90tabs E87.6 Raya Caballero, 03/20/2017 - ER day M.D. 03/25/2017 10Meq Tablets ER Potassium Chloride 1 by mouth qid x 5 20tabs Raya Caballero, 03/18/2017 - Mony ER days M.D. 03/20/2017 20Meq Tablets ER Furosemide 1 By Mouth Every 30tabs Raya Caballero, 02/19/2017 - 40mg Day M.D. 08/05/2017 Tablets Polyethylene Glycol 17 g by mouth 527gm Raya Caballero, 02/13/2017 - 3350 every day until M.D. 08/05/2017 3350NF Powder normal bms Furosemide 1 By Mouth Every 30tabs Raya Caballero, 02/13/2017 - 20mg Day M.D. 02/19/2017 Tablets Ciprofloxacin HCL 1 tab by mouth q12 6tabs Raya Caballero, 01/15/2017 - x 3 days M.D. 03/14/2017 250mg Tablets Metamucil 2 Caps 2X/Day Lorenzo 01/13/2017 - 0.52gm MD Margy 03/18/2017 Capsules Amitiza take 1 capsule by 60caps Raya Caballero, 01/01/2017 - 24mcg mouth two times a M.D. 01/13/2017 Capsules day Linzess Administer at 30caps Raya Cablalero, 01/01/2017 - 290mcg least 30 minutes M.D. 03/18/2017 Capsules before the first meal of the day on an empty stomach Gasx 1 qd Raya Caballero, 12/12/2016 - M.D. 07/25/2017 Venlafaxine HCL 1 By Mouth Twice A 60tabs Raya Caballero, 12/12/2016 - 100mg Day M.D. 08/06/2017 Tablets Zofran 1 Tabl Every 8 30tabs Ledy Spann, 12/12/2016 - 8mg Tablets Hours as Needed PNP-TRACIE SOTO, 08/01/2018 Ibclc Glycerin Adult 1 suppository 30units Raya Caballero, 2016 - 2gm rectally daily M.D. 12/12/2016 Suppository until regular BMs Enema Mineral Oil 133 mL as a single 133ml Raya Caballero, 2016 - dose M.D. 12/12/2016 Enema Senna 1 by mouth @ at 30tabs Raya Caballero, 11/21/2016 - 8.6mg Tablets bedtime M.D. 2016 Venlafaxine HCL 1 Tab PO bid 60tabs Raya Caballero, 11/12/2016 - 50mg M.D. 12/12/2016 Tablets Venlafaxine HCL Take 1 Tab By 60tabs Raya Caballero, 11/08/2016 - 25mg Mouth Twice A Day M.D. 11/12/2016 Tablets Venlafaxine HCL ER 1 Tab By Mouth 30tabs Raya Caballero, 11/05/2016 - Every Daily M.D. 11/08/2016 37.5mg Tablets ER 24HR Diazepam 1 by mouth 1 hour 6tabs Lorenzo, 08/19/2016 - 5mg Tablets before flying; jonna Ji MD 09/10/2016 repeat after 30 min. if needed Reference #: [id number] Montelukast Sodium 1 By Mouth Every 30tabs R06.02 Raya Caballero, 06/28/2016 - Day M.D. 07/10/2016 10mg Tablets Symbicort 2 puffs inhaled 13.8units R06.02 Raya Caballero, 06/28/2016 - twice a day M.D. 07/10/2016 80-4.5mcg/Act Aerosol Azithromycin 1 tab take 2 tabs 6tabs Raya Caballero, 06/19/2016 - 250mg x daily days then M.D. 06/28/2016 Tablets 1 for 4 days Prednisone 1 tab by mouth 5tabs Raya Caballero, 06/19/2016 - 50mg every day for 5 M.D. 06/28/2016 Tablets days, patient reports she has taken in the past without symptoms Buspirone HCL 1 by mouth F41.9 Raya Caballero, 04/05/2016 - 10mg M.D. 04/05/2016 Tablets Buspirone HCL 1/2 tab po qod for 90tabs F41.9 AnjelicaRaya, 04/05/2016 - 15mg 2 more times and M.D. 08/27/2017 Tablets then d/c Ketoconazole apply to affected 60gm B37.2 Raya Caballero, 03/19/2016 - 2% Cream area once daily, M.D. 07/10/2016 do not use for more than 2 weeks Duloxetine HCL Take One Capsule 30caps F33.1 AnjelicaRaya, 03/19/2016 - 30mg By Mouth Every Day M.D. 08/05/[address] Boland With 60MG To Total 90MG/Day Buspirone HCL 1 Tab By Mouth qid 120tabs F41.9 Raya Caballero, 03/05/2016 - 7.5mg M.D. 04/05/2016 Tablets Complete 1 by mouth every AnjelicaRaya, 03/05/2016 - day M.D. 12/12/2016 14-0.4mg Tablets Allergy 4 Hour AnjelicaRaya, 03/05/2016 - 4mg M.D. 03/05/2016 Tablets Stool Softener 1 by mouth twice a 60caps AnjelicaRaya, 03/05/2016 - 100mg day as needed M.D. 08/05/2017 Capsules Morphine Sulfate 1 Tab Twice A Day 50ml AnjelicaRaya, 03/05/2016 - (Concentrate) M.D. 07/16/2016 20mg/ml Solution Topiramate 1.5 Tabs Twice A 30tabs G40.909 AnjelicaRaya, 03/05/2016 - 100mg Day M.D. 08/06/2017 Tablets Eletriptan TK 1 T PO bid as Unknown - Hydrobromide Needed. Max 2 Days 08/10/2018 40mg Q WK Tablets Vitamin D3 1 by mouth every Unknown - 1000Unit day 06/29/2018 Capsules Vitamin C 1 by mouth every Unknown - Tablets day 06/29/2018 Vitamin B-12 1 by mouth every Unknown - Tablets day 06/29/2018 Probiotic 1 by mouth every Unknown - Capsules day 06/29/2018 Turmeric With Rubia 1 po qd Unknown - 06/29/2018 Magnesium 1 by mouth every Unknown - Tablets day 06/29/2018 Effexor XR 1 po bid Unknown - 150mg Caps 06/26/2018 ER 24HR Duloxetine HCL Take One Cap By 90caps M79.7 Raya Caballero, - 60mg Mouth Every Daily, M.D. 11/05/[address] Boland Is Trying Taper Currently, Take as Instructed F41.9 F33.1 Voltaren Unknown - 1% Gel 01/19/2018 Wing Strauss, - Hydrobromide 02/19/2018 40mg Tablets Duloxetine HCL 1 By Mouth Every 90caps M79.7 Ledy Spann, - 30mg In The Morning PNP-BC, [employer]CH[employer], 11/05/[address] Boland Ibclc F41.9 F33.1 Hydrocodone-Acetaminophen Unknown - 10-325mg Tablets 01/16/2018 Topamax 1 tab qam 2 Unknown - 100mg Tablets tabs qhs 03/16/2018 Cetirizine HCL TK 1 T PO Unknown - 10mg Tablets qpm 08/06/2017 Voltaren 1% Unknown - Gel 08/05/2017 Morphine Sulfate ER 1 tab po bid Unknown - 15mg Tablets ER 08/05/2017 Morphine Sulfate 1 tab po as Unknown - 7.5mg Tablets needed max 2 08/27/2017 per day Doxycycline Hyclate 1 tab po bid Unknown - 100mg Tablets 09/06/2016 Ventolin HFA 1-2 puffs J45.20 Unknown - 108(90Base) mcg/Act Aerosol every 4-6 07/10/2016 hours as needed Duloxetine HCL take one cap 30caps F33.1 Raya Caballero, - 60mg Caps DR Boland by mouth MStephanie 08/05/2017 every daily Cetirizine HCL 1 by mouth Unknown - 10mg Tablets every day 02/19/2018 [id number] 1 tabl by Unknown - 1mg Chewtabs mouth every 07/10/2016 day Immunizations CPT Code Status Date Vaccine Lot # [id number] Refused 02/16/2018 Influenza Vaccine (Fluzone) Age 3 And Older [id number] Refused 03/05/2016 Influenza Vaccine (Fluzone) Age 3 And Older Vital Signs Date Vital Result Comment 08/20/2018 11:37am BP Systolic Sitting Left Arm 120 mmHg BP Diastolic Sitting Left Arm 74 mmHg Body Temperature 99.8 F Heart Rate 105 /min Weight 165.00 lb O2 % BldC Oximetry 97 % 07/13/2018 2:01pm BP Systolic 105 mmHg BP Diastolic 73 mmHg Body Temperature 99.8 F Heart Rate 101 /min Height 60 inches 5'0" [place] body weight in kilograms 45 kg O2 % BldC Oximetry 97 % room air Pain Level 7 06/29/2018 11:12am BP Systolic 114 mmHg BP Diastolic 82 mmHg Heart Rate 98 /min Respiratory Rate 18 /min Height 61 inches 5'1" [place] body weight in kilograms 48 kg O2 % BldC Oximetry 98 % Ra 03/16/2018 4:23pm BP Systolic Sitting Left Arm 120 mmHg BP Diastolic Sitting Left Arm 62 mmHg Body Temperature 99.9 F Heart Rate 167 /min O2 % BldC Oximetry 97 % 02/24/2018 9:59am BP Systolic Sitting Left Arm 104 mmHg BP Diastolic Sitting Left Arm 64 mmHg 02/10/2018 4:45pm BP Systolic Sitting Right Arm 116 mmHg BP Diastolic Sitting Right Arm 72 mmHg Body Temperature 98.0 F Heart Rate 114 /min Height 61 inches 5'1" [place] body weight in kilograms 48 kg 01/16/2018 2:46pm BP Systolic 120 mmHg BP Diastolic 76 mmHg Body Temperature 99.3 F Heart Rate 114 /min Respiratory Rate 18 /min O2 % BldC Oximetry 98 % 11/05/2017 9:50am BP Systolic Sitting Left Arm 104 mmHg BP Diastolic Sitting Left Arm 64 mmHg Body Temperature 99.1 F Heart Rate 105 /min O2 % BldC Oximetry 98 % 10/01/2017 3:47pm BP Systolic Sitting Right Arm 106 mmHg BP Diastolic Sitting Right Arm 76 mmHg Body Temperature 100.2 F Heart Rate 112 /min Height 63 inches 5'3" [place] body weight in kilograms 52 kg 08/27/2017 11:25am BP Systolic 122 mmHg BP Diastolic 76 mmHg Body Temperature 99.3 F Heart Rate 99 /min Respiratory Rate 17 /min Height 63 inches 5'3" Weight 150.00 lb per patient BMI (Body Mass Index) 26.6 kg/m2 BSA (Body Surface Area) 1.71 m2 [place] body weight in kilograms 52 kg O2 % BldC Oximetry 97 % 08/18/2017 11:04am BP Systolic Sitting Right Arm 105 mmHg BP Diastolic Sitting Right Arm 76 mmHg Body Temperature 99.6 F Heart Rate 108 /min Respiratory Rate 17 /min Height 63 inches 5'3" [place] body weight in kilograms 52 kg 08/06/2017 10:31am BP Systolic Sitting Right Arm 118 mmHg BP Diastolic Sitting Right Arm 70 mmHg Body Temperature 99.2 F Height 63 inches 5'3" [place] body weight in kilograms 52 kg 08/05/2017 1:43pm BP Systolic Sitting Left Arm 117 mmHg BP Diastolic Sitting Left Arm 89 mmHg Body Temperature 99.6 F Heart Rate 99 /min Weight 150.00 lb reported O2 % BldC Oximetry 97 % Ra Pain Level 5 07/09/2017 4:54pm BP Systolic Sitting Left Arm 102 mmHg BP Diastolic Sitting Left Arm 62 mmHg Height 62 inches 5'2" [place] body weight in kilograms 50 kg 06/17/2017 1:40pm BP Systolic Sitting Left Arm 100 mmHg BP Diastolic Sitting Left Arm 64 mmHg Body Temperature 98.8 F Height 62 inches 5'2" [place] body weight in kilograms 50 kg 06/10/2017 8:54am BP Systolic Sitting Left Arm 116 mmHg BP Diastolic Sitting Left Arm 74 mmHg Heart Rate 106 /min Respiratory Rate 20 /min O2 % BldC Oximetry 98 % 06/02/2017 1:50pm BP Systolic 118 mmHg BP Diastolic 80 mmHg Body Temperature 99.9 F Heart Rate 111 /min Respiratory Rate 19 /min Height 65.6 inches 5'5.60" [place] body weight in kilograms 58 kg O2 % BldC Oximetry 97 % 05/14/2017 4:51pm BP Systolic Sitting Left Arm 116 mmHg BP Diastolic Sitting Left Arm 68 mmHg Height 65.6 inches 5'5.60" [place] body weight in kilograms 58 kg 04/23/2017 4:45pm BP Systolic Sitting Left Arm 122 mmHg BP Diastolic Sitting Left Arm 72 mmHg Height 65.6 inches 5'5.60" [place] body weight in kilograms 58 kg 03/25/2017 11:11am BP Systolic Sitting Left Arm 122 mmHg BP Diastolic Sitting Left Arm 60 mmHg Body Temperature 98.6 F Heart Rate 96 /min O2 % BldC Oximetry 99 % 03/20/2017 5:04pm BP Systolic Sitting Right Arm 98 mmHg BP Diastolic Sitting Right Arm 70 mmHg Body Temperature 98.1 F 03/18/2017 11:36am BP Systolic 118 mmHg BP Diastolic 82 mmHg Body Temperature 98.9 F Heart Rate 119 /min Height 65.6 inches 5'5.60" [place] body weight in kilograms 58 kg O2 % BldC Oximetry 95 % 01/13/2017 3:19pm BP Systolic Sitting Left Arm 108 mmHg BP Diastolic Sitting Left Arm 70 mmHg Body Temperature 98.9 F Height 65.6 inches 5'5.60" [place] body weight in kilograms 58 kg 12/12/2016 4:12pm BP Systolic Sitting Left Arm 106 mmHg BP Diastolic Sitting Left Arm 68 mmHg Height 65.6 inches 5'5.60" [place] body weight in kilograms 58 kg 09/10/2016 3:38pm BP Systolic Sitting Left Arm 98 mmHg BP Diastolic Sitting Left Arm 52 mmHg Height 60.6 inches 5'0.60" [place] body weight in kilograms 47 kg 07/22/2016 2:12pm BP Systolic Sitting Left Arm 92 mmHg BP Diastolic Sitting Left Arm 68 mmHg Heart Rate 80 /min Respiratory Rate 16 /min Height 60 inches 5'0" Weight 150.00 lb BMI (Body Mass Index) 29.3 kg/m2 BSA (Body Surface Area) 1.65 m2 [place] body weight in kilograms 45 kg 07/16/2016 10:32am BP Systolic Sitting Right Arm 106 mmHg BP Diastolic Sitting Right Arm 60 mmHg Body Temperature 99.5 F Heart Rate 84 /min Respiratory Rate 16 /min 07/10/2016 9:49am BP Systolic Sitting Right Arm 112 mmHg BP Diastolic Sitting Right Arm 64 mmHg Body Temperature 99.4 F Heart Rate 94 /min Height 60 inches 5'0" [place] body weight in kilograms 45 kg O2 % BldC Oximetry 96 % 06/28/2016 10:31am BP Systolic 98 mmHg BP Diastolic 78 mmHg Body Temperature 99.5 F Heart Rate 107 /min Respiratory Rate 20 /min Height 60 inches 5'0" O2 % BldC Oximetry 96 % 06/18/2016 11:28am BP Systolic 96 mmHg BP Diastolic 80 mmHg Body Temperature 99.6 F Heart Rate 99 /min Respiratory Rate 16 /min Height 60 inches 5'0" [place] body weight in kilograms 45 kg O2 % BldC Oximetry 97 % 04/05/2016 10:26am BP Systolic 108 mmHg BP Diastolic 78 mmHg Body Temperature 100.0 F Heart Rate 113 /min Respiratory Rate 18 /min O2 % BldC Oximetry 100 % 03/19/2016 11:46am BP Systolic 102 mmHg BP Diastolic 74 mmHg Body Temperature 99.7 F Heart Rate 104 /min Height 60.5 inches 5'0.50" Weight 158.00 lb BMI (Body Mass Index) 30.3 kg/m2 BSA (Body Surface Area) 1.70 m2 [place] body weight in kilograms 47 kg O2 % BldC Oximetry 97 % 03/05/2016 11:08am BP Systolic 102 mmHg BP Diastolic 78 mmHg Heart Rate 98 /min Respiratory Rate 16 /min Height 61.5 inches 5'1.50" Weight 159.00 lb BMI (Body Mass Index) 29.6 kg/m2 BSA (Body Surface Area) 1.72 m2 [place] body weight in kilograms 49 kg Results Test Date Facility Test Result H/L Range Note Comprehensive 08/20/2018 [facility] Glucose 119 mg/dL High 74-106 1 Metabolic Panel [address] [place], [place] [id number] [phone] BUN 9 mg/dL N 7-18 Creatinine 1.0 mg/dL N 0.6-1.3 Glom Filtration Rate, Estimate >60 mL/min >60 If >60 mL/min >60 2 BUN/Creat 9.0 ratio Sodium 137 mmol/L N 136-145 Potassium 3.7 mmol/L N 3.5-5.1 Chloride 106 mmol/L N 98-107 Carbon Dioxide 23 mmol/L N 21-32 Anion Gap 8 mEq/L N 8-16 Calcium 9.7 mg/dL N 8.5-10.1 Total Protein 7.8 g/dL N 6.4-8.2 Albumin 4.2 g/dL N 3.4-5.0 Globulin 3.6 g/dL N 1.9-4.3 Alb/Glob 1.2 ratio Bilirubin,Total 0.3 mg/dL N 0.2-1.0 Sgot/Ast 16 U/L N 15-37 SGPT/Alt 27 U/L N 12-78 Alkaline Phosphatase 124 U/L High 45-117 Reflex add FT3? Y Reflex add FT4? Y TSH Reflex FT4 08/20/2018 [facility] Thyroid Stim 3.37 uIU/mL N 0.30-4.20 And/Or FT3 [address] [place] [address] [phone] Reflex add FT3? Y Reflex add FT4? Y CBC W/Automated Diff 08/20/2018 [facility] White Blood 9.5 K/uL N 3.1-10.[address] [place] [address] [phone] Red Blood Count 5.52 M/uL High 3.90-5.40 Hemoglobin 15.5 gm/dL N 11.6-15.8 Hematocrit 48.2 % High 36.0-46.1 Mean Cell Volume 87.3 fl N 80.9-99.0 Mean Corpuscular HGB 28.1 pg N 25.9-32.7 Mean Corpuscular HGB Conc 32.2 g/dL N 30.8-34.3 Platelet Count 302 K/uL N 155-360 Red Cell Distri Width SD 42.8 fl N 36-47 Red Cell Distri Width %CV 13.5 % N 11.7-14.4 Mean Platelet Volume 11.3 fl N 8.9-12.4 Neut% 64.9 % N 40.4-72.8 Lymph % 26.3 % N 20.0-42.0 [place] % 7.2 % N 4.3-13.2 Eo% 1.2 % N 0.0-6.6 Bas% 0.1 % N 0.0-1.1 Immature Grans 0.3 % N 0.0-5.0 NRBC % 0.0 /100WBC < 10/ 100 WBC Neut# 6.18 K/uL N 1.8-7.0 Lymph # 2.50 K/uL N 1.0-4.0 [place] # 0.69 K/uL N 0.3-0.9 Eos # 0.11 K/uL N 0.0-0.5 Baso # 0.01 K/uL N 0.0-0.1 Immature Grans Absolute 0.03 K/uL NRBC # 0.00 K/uL Glycohemoglobin A1c 08/20/2018 [facility] Glycohemoglobin 5.0 % N 4.2-6.[address] (A1c) [place], [place] [id number] [phone] eAG 97 mg/dL Laboratory test 08/20/2018 [facility] Slide Review DIFF ORDERED finding [address] [place], [place] [id number] [phone] Differential-WBC 08/20/2018 [facility] Total Cells 100 #CELLS Confirm [address] Counted [place], [place] [id number] [phone] Band% 1 % N 0-8 Neutrophils% 72 % N 33-73 Lymph% 24 % N 20-42 Monocyte% 3 % N 0-10 Platelet Estimate NORMAL Polychromasia 0-1+ Ovalocytes 0-1+ Differential Comment LARGE PLATELETS <SEE NOTE> 5 CBC Auto Diff 03/25/2018 [facility] White Blood 9.3 10^3/uL N 3.5-10.8 [phone] Count Red Blood Count 5.06 10^6/uL N 4.00-5.40 Hemoglobin 14.5 g/dL N 12.0-16.0 Hematocrit 43 % N 35-47 Mean Corpuscular Volume 86 fL N 80-97 Mean Corpuscular Hemoglobin 29 pg N 27-31 Mean Corpuscular HGB Conc 34 g/dL N 31-36 Red Cell Distribution Width 14 % N 10.5-15 Platelet Count 251 10^3/uL N 150-450 Mean Platelet Volume 8.2 fL N 7.4-10.4 Abs Neutrophils 6.4 10^3/uL N 1.5-7.7 Abs Lymphocytes 2.1 10^3/uL N 1.0-4.8 Abs Monocytes 0.7 10^3/uL N 0-0.8 Abs Eosinophils 0 10^3/uL N 0-0.6 Abs Basophils 0 10^3/uL N 0-0.2 Abs Nucleated RBC 0 10^3/uL Granulocyte % 68.7 % Lymphocyte % 22.7 % Monocyte % 8.0 % Eosinophil % 0.1 % Basophil % 0.5 % Nucleated Red Blood Cells % 0.1 Inr/Protime 03/25/2018 [facility] Inr 0.89 N 0.77- 1.02 [phone] Laboratory test 03/25/2018 [facility] [facility] Activated 31.7 N 26.0-36.3 finding [phone] Partial seconds Thrombo Time Lactic Acid 3.6 mmol/L High 0.5-2.0 6 Comp Metabolic Panel 03/25/2018 [facility] Sodium 136 mmol/L N 135-145 [phone] Potassium 4.1 mmol/L N 3.5-5.0 Chloride 103 mmol/L N 101-111 Co2 Carbon Dioxide 22 mmol/L N 22-32 Anion Gap 11 mmol/L N 2-11 Glucose 122 mg/dL High 70-100 Blood Urea Nitrogen 10 mg/dL N 6-24 Creatinine 0.73 mg/dL N 0.51-0.95 BUN/Creatinine Ratio 13.7 N 8-20 Calcium 10.1 mg/dL N 8.6-10.3 Total Protein 6.9 g/dL N 6.4-8.9 Albumin 4.2 g/dL N 3.2-5.2 Globulin 2.7 g/dL N 2-4 Albumin/Globulin Ratio 1.6 N 1-3 Total Bilirubin 0.30 mg/dL N 0.2-1.0 Alkaline Phosphatase 97 U/L N 34-104 Alt 17 U/L N 7-52 Ast 23 U/L N 13-39 Egfr Non- 87.0 >60 Egfr 105.3 >60 7 Laboratory test 03/25/2018 [facility] Magnesium 2.0 mg/dL N 1.9-2.7 finding [phone] Alcohol 5 mg/dL N <10 TSH (Thyroid Stim Horm) 1.42 mcIU/mL N 0.34-5.60 Monocytes/leuk NFr 01/14/2018 N2N/CCD Import Monocytes/leuk NFr 8.0 4.3- 13.2 Bld Auto Bld Auto Neutrophils # Bld 01/14/2018 N2N/CCD Import Neutrophils # Bld 6.78 1.8- 7.0 Auto Auto Neutrophils/leuk 01/14/2018 N2N/CCD Import Neutrophils/leuk 64.6 40.4- 72.8 NFr Bld Auto NFr Bld Auto Potassium 01/14/2018 N2N/CCD Import Potassium 4.0 3.5-5.1 SerPl-sCnc SerPl-sCnc RDW RBC Auto 01/14/2018 N2N/CCD Import RDW RBC Auto 42.9 3-47 RDW RBC Auto-Rto 01/14/2018 N2N/CCD Import RDW RBC Auto-Rto 13.4 11.7- 14.4 Serum carbon 01/14/2018 N2N/CCD Import Serum carbon 24 21-32 dioxide dioxide measurement measurement Serum or plasma C 01/14/2018 N2N/CCD Import Serum or plasma C 5.5 High < 3.0 reactive protein reactive protein measurement (ma measurement (mass/volume) Serum or plasma 01/14/2018 N2N/CCD Import Serum or plasma 9.8 8.5-10.1 calcium calcium measurement measurement (mass/volume) (mass/volume) Serum or plasma 01/14/2018 N2N/CCD Import Serum or plasma 0.8 0.6-1.3 creatinine creatinine measurement measurement (mass/volum (mass/volume) Serum or plasma 01/14/2018 N2N/CCD Import Serum or plasma 80 74-106 glucose glucose measurement measurement (mass/volume) (mass/volume) Serum or plasma 01/14/2018 N2N/CCD Import Serum or plasma 1.3 0.4-1.9 lactate lactate measurement measurement (moles/volume) (moles/volume) Serum or plasma 01/14/2018 N2N/CCD Import Serum or plasma 14 7-18 urea nitrogen urea nitrogen measurement measurement (mass/vo (mass/volume) Serum or plasma 01/14/2018 N2N/CCD Import Serum or plasma 17.5 urea urea nitrogen/creatinin nitrogen/creatinin e mass rati e mass ratio Serum sodium 01/14/2018 N2N/CCD Import Serum sodium 141 136-145 measurement measurement Blood Culture 01/14/2018 [facility] Blood Culture NO 8, [address] Aerobic GROWTH: [place] [address] FINAL [phone] <SEE NOTE> Blood Culture Anaerobic NO GROWTH: FINAL <SEE NOTE> 10 Lactic Acid 01/14/2018 [facility] Lactic Acid 1.3 mmol/L N 0.4-1.[address] [place] [address] [phone] Lab Reflex >2.0 for Sepsis? Y Blood Culture 01/14/2018 [facility] Blood Culture NO GROWTH: FINAL [address] Aerobic <SEE NOTE> [place] [address] [phone] Blood Culture Anaerobic NO GROWTH: FINAL <SEE NOTE> 12 Anion Gap 01/14/2018 N2N/CCD Import Anion Gap 6 Low 8-16 SerPl-sCnc SerPl-sCnc Automated blood 01/14/2018 N2N/CCD Import Automated blood 0.01 0.0-0.1 basophil count basophil count (count/volume) (count/volume) Automated blood 01/14/2018 N2N/CCD Import Automated blood 0.03 0.0-0.5 eosinophil count eosinophil count Automated blood 01/14/2018 N2N/CCD Import Automated blood 45.7 36.0- 46.1 hematocrit (volume hematocrit (volume fraction) fraction) Automated blood 01/14/2018 N2N/CCD Import Automated blood 2.84 1.0-4.0 lymphocyte count lymphocyte count (number/volume) (number/volume) Automated blood 01/14/2018 N2N/CCD Import Automated blood 260 155-360 platelet count platelet count Automated blood 01/14/2018 N2N/CCD Import Automated blood 10.7 8.9-12.4 platelet mean platelet mean volume measurement volume measurement Automated 01/14/2018 N2N/CCD Import Automated 29.3 25.9-32.7 erythrocyte mean erythrocyte mean corpuscular corpuscular hemoglobin hemoglobin (mass per erythrocyte) Automated 01/14/2018 N2N/CCD Import Automated 33.3 30.8-34.3 erythrocyte mean erythrocyte mean corpuscular corpuscular hemoglobin hemoglobin concentration measurement (mass/volume) Automated 01/14/2018 N2N/CCD Import Automated 88.2 80.9-99.0 erythrocyte mean erythrocyte mean corpuscular volume corpuscular volume Basophils/leuk NFr 01/14/2018 N2N/CCD Import Basophils/leuk NFr 0.1 0.0- 1.1 Bld Auto Bld Auto Blood erythrocytes 01/14/2018 N2N/CCD Import Blood erythrocytes 5.18 3.90-5.40 automated count automated count (number/volume) (number/volume) Blood hemoglobin 01/14/2018 N2N/CCD Import Blood hemoglobin 15.2 11.6- 15.8 measurement measurement (mass/volume) (mass/volume) Blood leukocytes 01/14/2018 N2N/CCD Import Blood leukocytes 10.5 3.1- 10.7 automated count automated count (number/volume) (number/volume) Blood monocytes 01/14/2018 N2N/CCD Import Blood monocytes 0.84 0.3-0.9 automated count automated count (number/volume) (number/volume) Chloride SerPl-sCnc 01/14/2018 N2N/CCD Import Chloride 111 High 98-107 SerPl-sCnc Eosinophil/leuk NFr 01/14/2018 N2N/CCD Import Eosinophil/leuk 0.3 0.0- 6.6 Bld Auto NFr Bld Auto Erythrocyte 01/14/2018 N2N/CCD Import Erythrocyte 17 0-20 sedimentation rate sedimentation rate by 15 minute readin by 15 minute reading Lymphocytes/leuk 01/14/2018 N2N/CCD Import Lymphocytes/leuk 27.0 20.0- 42.0 NFr Bld Auto NFr Bld Auto CBS W/Automated 08/04/2017 [facility] White Blood Count 7.4 K/uL N 3.1-10.7 13 Diff [address] [place] [address] [phone] Red Blood Count 5.39 M/uL N 3.90-5.40 Hemoglobin 15.6 gm/dL N 11.6-15.8 Hematocrit 46.3 % High 36.0-46.1 Mean Cell Volume 85.9 fl N 80.9-99.0 Mean Corpuscular HGB 28.9 pg N 25.9-32.7 Mean Corpuscular HGB Conc 33.7 g/dL N 30.8-34.3 Platelet Count 264 K/uL N 155-360 Red Cell Distri Width SD 44.6 fl N 3-47 Red Cell Distri Width %CV 14.4 % N 11.7-14.4 Mean Platelet Volume 10.5 fL N 8.9-12.4 Neut% 53.5 % N 40.4-72.8 Lymph % 36.9 % N 20.0-42.0 [place] % 9.6 % N 4.3-13.2 Eo% 0.0 % N 0.0-6.6 Bas% 0.0 % N 0.0-1.1 Neut# 3.98 K/uL N 1.8-7.0 Lymph # 2.74 K/uL N 1.0-4.0 [place] # 0.71 K/uL N 0.3-0.9 Eos # 0.00 K/uL N 0.0-0.5 Baso # 0.00 K/uL N 0.0-0.1 Liver Function 07/23/2017 [facility] Total Protein 7.7 g/dL N 6.4-8.2 14 Tests [address] [place] [address] [phone] Albumin 3.9 g/dL N 3.4-5.0 Globulin 3.8 g/dL N 1.9-4.3 Alb/Glob 1.0 ratio Bilirubin,Total 0.4 mg/dL N 0.2-1.0 Bilirubin,Direct < 0.1 mg/dL N 0.0-0.2 Bilirubin,Indirect 0.3 mg/dL N 0.0-0.9 Sgot/Ast 12 U/L Low 15-37 15 SGPT/Alt 20 U/L N 12-78 Alkaline Phosphatase 120 U/L High 45-117 Basic Metabolic Panel 07/23/2017 [facility] Glucose 100 mg/dL N 74-106 [address] [place] [address] [phone] BUN 12 mg/dL N 7-18 Creatinine 0.9 mg/dL N 0.6-1.3 Glom Filtration Rate, Estimate >60 mL/min >60 If >60 mL/min >60 16 BUN/Creat 13.3 ratio Sodium 139 mmol/L N 136-145 Potassium 3.9 mmol/L N 3.5-5.1 Chloride 106 mmol/L N 98-107 Carbon Dioxide 25 mmol/L N 21-32 Anion Gap 8 mEq/L N 8-16 Calcium 9.6 mg/dL N 8.5-10.1 Laboratory test 07/23/2017 [facility] Thyroid Stim 1.67 uIU/mL N 0.30-4.[address] [place] [address] [phone] Free T4 0.95 ng/dL N 0.76-1.46 CBS W/Automated 07/23/2017 [facility] White Blood 10.9 K/uL High 3.1-10.[address] [place] [address] [phone] Red Blood Count 5.33 M/uL N 3.90-5.40 Hemoglobin 15.6 gm/dL N 11.6-15.8 Hematocrit 46.3 % High 36.0-46.1 Mean Cell Volume 86.9 fl N 80.9-99.0 Mean Corpuscular HGB 29.3 pg N 25.9-32.7 Mean Corpuscular HGB Conc 33.7 g/dL N 30.8-34.3 Platelet Count 287 K/uL N 155-360 Red Cell Distri Width SD 43.8 fl N 3-47 Red Cell Distri Width %CV 14.0 % N 11.7-14.4 Mean Platelet Volume 11.8 fL N 8.9-12.4 Neut% 53.9 % N 40.4-72.8 Lymph % 37.7 % N 20.0-42.0 [place] % 8.4 % N 4.3-13.2 Eo% 0.0 % N 0.0-6.6 Bas% 0.0 % N 0.0-1.1 Neut# 5.86 K/uL N 1.8-7.0 Lymph # 4.11 K/uL High 1.0-4.0 [place] # 0.92 K/uL High 0.3-0.9 Eos # 0.00 K/uL N 0.0-0.5 Baso # 0.00 K/uL N 0.0-0.1 Laboratory test 07/23/2017 [facility] Slide Review DIFF ORDERED finding [address] [place] [address] [phone] Differential-WBC 07/23/2017 [facility] Total Cells 100 #CELLS Confirm [address] [place] [address] [phone] Metamyelocyte% 1 % 0% Band% 2 % N 0-8 Neutrophils% 45 % N 33-73 Lymph% 40 % N 20-42 Atypical Lymph% 7 % N 0-7 Monocyte% 5 % N 0-10 Platelet Estimate NORMAL RBC Morphology NORMAL Laboratory test 07/23/2017 [facility] Sedimentation Rate 9 mm/hr N 0-20 [address] [place] [address] [phone] Triiodothyronine,Total 85 ng/dL 71-180 Antinuclear Antibodies, Ifa Negative . 18 Influenza A/B 06/17/2017 [facility] Influenza A Negative (Negative) [address] [place] [address] [phone] Influenza B Antigen Negative (Negative) 20 Laboratory 06/02/2017 [facility] Throat Strep Screen NO BETA 21, 22 test finding [address] [place] [address] <SEE NOTE> [phone] Proinsulin 05/12/2017 [facility] Proinsulin 6.0 pmol/L 0.0 23, [address] -[address] [place] [address] .0 [phone] Laboratory 05/05/2017 [facility] Beta 1.6 mg/dL . 25, 26 test finding [address] [place] [address] [phone] C-Peptide 6.3 ng/mL High 1.1-4.4 27 Insulin 27.0 uIU/mL High 2.6-24.9 Proinsulin 05/05/2017 [facility] Proinsulin (SEE NOTE) 0.0-10.[address] pmol/[place] [address] [phone] TSH Reflex FT4 05/05/2017 [facility] Thyroid Stim 0.82 N 0.30-4.20 And/Or FT3 [address] Hormone uIU/mL [place], [place] [id number] [phone] Reflex add FT3? Y Reflex add FT4? Y Basic Metabolic Panel 05/05/2017 [facility] Glucose 109 mg/dL High 74-[address] [place] [address] [phone] BUN 13 mg/dL N 7-18 Creatinine 1.0 mg/dL N 0.6-1.3 Glom Filtration Rate, Estimate >60 mL/min >60 If >60 mL/min >60 29 BUN/Creat 13.0 ratio Sodium 138 mmol/L N 136-145 Potassium 4.3 mmol/L N 3.5-5.1 Chloride 109 mmol/L High 98-107 Carbon Dioxide 21 mmol/L N 21-32 Anion Gap 8 mEq/L N 8-16 Calcium 9.9 mg/dL N 8.5-10.1 Reflex add FT3? Y Reflex add FT4? Y Basic Metabolic Panel 04/08/2017 [facility] Glucose 104 mg/dL N 74-106 30 [address] [place], [place] [id number] [phone] BUN 12 mg/dL N 7-18 Creatinine 0.9 mg/dL N 0.6-1.3 Glom Filtration Rate, Estimate >60 mL/min >60 If >60 mL/min >60 31 BUN/Creat 13.3 ratio Sodium 140 mmol/L N 136-145 Potassium 4.9 mmol/L N 3.5-5.1 Chloride 109 mmol/L High 98-107 Carbon Dioxide 24 mmol/L N 21-32 Anion Gap 7 mEq/L Low 8-16 Calcium 9.4 mg/dL N 8.5-10.1 Laboratory test 04/08/2017 [facility] Vitamin B12 666 pg/mL N 193-986 finding [address] [place] [address] [phone] CBC Auto Diff 04/07/2017 [facility] White Blood 11.0 High 3.5-10.8 [phone] Count 10^3/uL Red Blood Count 5.54 10^6/uL High 4.0-5.4 Hemoglobin 15.9 g/dL N 12.0-16.0 Hematocrit 47 % N 35-47 Mean Corpuscular Volume 86 fL N 80-97 Mean Corpuscular Hemoglobin 29 pg N 27-31 Mean Corpuscular HGB Conc 34 g/dL N 31-36 Red Cell Distribution Width 13 % N 10.5-15 Platelet Count 240 10^3/uL N 150-450 Mean Platelet Volume 8 um3 N 7.4-10.4 Abs Neutrophils 7.0 10^3/uL N 1.5-7.7 Abs Lymphocytes 3.0 10^3/uL N 1.0-4.8 Abs Monocytes 0.9 10^3/uL High 0-0.8 Abs Eosinophils 0 10^3/uL N 0-0.6 Abs Basophils 0 10^3/uL N 0-0.2 Abs Nucleated RBC 0.02 10^3/uL Granulocyte % 63.8 % N 38-83 Lymphocyte % 27.2 % N 25-47 Monocyte % 8.6 % N 1-9 Eosinophil % 0 % N 0-6 Basophil % 0.4 % N 0-2 Nucleated Red Blood Cells % 0.2 Comp Metabolic 04/07/2017 [facility] Sodium 132 mmol/ L Low 133-145 Panel [phone] Potassium 3.9 mmol/L N 3.5-5.0 Chloride 104 mmol/L N 101-111 Co2 Carbon Dioxide 23 mmol/L N 22-32 Anion Gap 5 mmol/L N 2-11 Glucose 94 mg/dL N 70-100 Blood Urea Nitrogen 12 mg/dL N 6-24 Creatinine 0.97 mg/dL High 0.51-0.95 BUN/Creatinine Ratio 12.4 N 8-20 Calcium 9.7 mg/dL N 8.6-10.3 Total Protein 6.9 g/dL N 6.4-8.9 Albumin 4.2 g/dL N 3.2-5.2 Globulin 2.7 g/dL N 2-4 Albumin/Globulin Ratio 1.6 N 1-3 Total Bilirubin 0.40 mg/dL N 0.2-1.0 Alkaline Phosphatase 75 U/L N 34-104 Alt 11 U/L N 7-52 Ast 17 U/L N 13-39 Egfr Non- 63.0 >60 Egfr 81.0 >60 32 Basic Metabolic Panel 03/25/2017 [facility] Glucose 91 mg/dL N 74-106 33 [address] [place] [address] [phone] BUN 10 mg/dL N 7-18 Creatinine 1.0 mg/dL N 0.6-1.3 Glom Filtration Rate, Estimate >60 mL/min >60 If >60 mL/min >60 34 BUN/Creat 10.0 ratio Sodium 141 mmol/L N 136-145 Potassium 3.9 mmol/L 3.5-5.1 Chloride 109 mmol/L High 98-107 Carbon Dioxide 23 mmol/L N 21-32 Anion Gap 9 mEq/L N 8-16 Calcium 9.0 mg/dL N 8.5-10.1 CBS W/Automated 03/18/2017 [facility] White Blood 8.0 K/uL N 3.1-10.7 [address] [place] [address] [phone] Red Blood Count 5.61 M/uL High 3.90-5.40 Hemoglobin 16.0 gm/dL High 11.6-15.8 Hematocrit 46.9 % High 36.0-46.1 Mean Cell Volume 83.6 fl N 80.9-99.0 Mean Corpuscular HGB 28.5 pg N 25.9-32.7 Mean Corpuscular HGB Conc 34.1 g/dL N 30.8-34.3 Platelet Count 271 K/uL N 150-400 Red Cell Distri Width SD 38.6 fl N 3-47 Red Cell Distri Width %CV 12.8 % N 11.7-14.4 Mean Platelet Volume 10.6 fL N 8.9-12.4 Neut% 43.6 % N 40.4-72.8 Lymph % 44.1 % High 20.0-42.0 [place] % 12.2 % N 4.3-13.2 Eo% 0.0 % N 0.0-6.6 Bas% 0.1 % N 0.0-1.1 Neut# 3.47 K/uL N 1.8-7.0 Lymph # 3.51 K/uL N 1.0-4.0 [place] # 0.97 K/uL High 0.3-0.9 Eos # 0.00 K/uL N 0.0-0.5 Baso # 0.01 K/uL N 0.0-0.1 Laboratory test 03/18/2017 [facility] D-Dimer, < 0.22 [address] Quantitative ug/[place] [address] [phone] Basic Metabolic 03/18/2017 [facility] Glucose 88 mg/dL N 74-[address] [place] [address] [phone] BUN 12 mg/dL N 7-18 Creatinine 1.2 mg/dL N 0.6-1.3 Glom Filtration Rate, Estimate 52 mL/min >60 If >60 mL/min >60 37 BUN/Creat 10.0 ratio Sodium 134 mmol/L Low 136-145 Potassium 2.7 mmol/L Low 3.5-5.1 Chloride 96 mmol/L Low 98-107 Carbon Dioxide 29 mmol/L N 21-32 Anion Gap 9 mEq/L N 8-16 Calcium 9.4 mg/dL N 8.5-10.1 Comprehensive Metabolic 03/04/2017 [facility] Glucose 102 mg/dL N 74-106 38 Panel [address] [place], [place] [id number] [phone] BUN 17 mg/dL N 7-18 Creatinine 1.0 mg/dL N 0.6-1.3 Glom Filtration Rate, Estimate >60 mL/min >60 If >60 mL/min >60 39 BUN/Creat 17.0 ratio Sodium 136 mmol/L N 136-145 Potassium 2.7 mmol/L Low 3.5-5.1 Chloride 103 mmol/L N 98-107 Carbon Dioxide 24 mmol/L N 21-32 Anion Gap 9 mEq/L N 8-16 Calcium 8.9 mg/dL N 8.5-10.1 Total Protein 7.7 g/dL N 6.4-8.2 Albumin 4.1 g/dL N 3.4-5.0 Globulin 3.6 g/dL N 1.9-4.3 Alb/Glob 1.1 ratio Bilirubin,Total 0.4 mg/dL N 0.2-1.0 Sgot/Ast 15 U/L N 15-37 SGPT/Alt 30 U/L N 12-78 Alkaline Phosphatase 85 U/L N 45-117 Laboratory test finding 03/04/2017 [facility] CK 40 U/L N 26-[address] [place], [place] [id number] [phone] Troponin-I < 0.015 ng/mL 41 CBS W/Automated 03/04/2017 [facility] White Blood 13.6 K/uL High 3.1-10.[address] [place] [address] [phone] Red Blood Count 5.73 M/uL High 3.90-5.40 Hemoglobin 16.6 gm/dL High 11.6-15.8 Hematocrit 47.5 % High 36.0-46.1 Mean Cell Volume 82.9 fl N 80.9-99.0 Mean Corpuscular HGB 29.0 pg N 25.9-32.7 Mean Corpuscular HGB Conc 34.9 g/dL High 30.8-34.3 Platelet Count 282 K/uL N 150-400 Red Cell Distri Width SD 39.3 fl N 3-47 Red Cell Distri Width %CV 13.1 % N 11.7-14.4 Mean Platelet Volume 11.2 fL N 8.9-12.4 42 Neut# 6.66 K/uL N 1.8-7.0 Lymph # 5.65 K/uL High 1.0-4.0 [place] # 1.29 K/uL High 0.3-0.9 Eos # 0.00 K/uL N 0.0-0.5 Baso # 0.02 K/uL N 0.0-0.1 Slide Review 03/04/2017 [facility] Slide Review DIFF ORDERED [address] [place] [address] [phone] Path Review: 03/04/2017 [facility] Path Review: INDICATED,SLIDE [address] <SEE NOTE> [place] [address] [phone] Differential-WBC 03/04/2017 [facility] Total Cells 100 #CELLS Confirm [address] Counted [place] [address] [phone] Neutrophils% 47 % N 33-73 Lymph% 29 % N 20-42 Atypical Lymph% 16 % High 0-7 Monocyte% 8 % N 0-10 Platelet Estimate NORMAL Anisocytosis 0-1+ Microcytosis 1+ Laboratory test finding 02/02/2017 [facility] CK 31 U/L N 26-[address] [place] [address] [phone] D-Dimer, Quantitative < 0.22 ug/mL 45 CBS W/Automated 11/08/2016 [facility] White Blood 7.8 K/uL N 3.1-10.7 [address] [place] [address] [phone] Red Blood Count 5.22 M/uL N 3.90-5.40 Hemoglobin 14.4 gm/dL N 11.6-15.8 Hematocrit 43.5 % N 36.0-46.1 Mean Cell Volume 83.3 fl N 80.9-99.0 Mean Corpuscular HGB 27.6 pg N 25.9-32.7 Mean Corpuscular HGB Conc 33.1 g/dL N 30.8-34.3 Platelet Count 218 K/uL N 150-400 Red Cell Distri Width SD 44.0 fl N 3-47 Red Cell Distri Width %CV 14.7 % High 11.7-14.4 Mean Platelet Volume 11.3 fL N 8.9-12.4 Neut% 43.5 % N 40.4-72.8 Lymph % 44.3 % High 20.0-42.0 [place] % 9.3 % N 4.3-13.2 Eo% 2.3 % N 0.0-6.6 Bas% 0.6 % N 0.0-1.1 Neut# 3.38 K/uL N 1.8-7.0 Lymph # 3.45 K/uL N 1.0-4.0 [place] # 0.72 K/uL N 0.3-0.9 Eos # 0.18 K/uL N 0.0-0.5 Baso # 0.05 K/uL N 0.0-0.1 Laboratory test 11/08/2016 [facility] D-Dimer, < 0.22 [address] Quantitative ug/[place] [address] [phone] Laboratory test 11/08/2016 [facility] Lyme Total < 0.91 ISR 0.00- [address] AB/Reflex To WB 0.90 [place] [address] [phone] CBS W/Automated 09/10/2016 [facility] White Blood Count 6.7 K/uL N 3.1-1 [address] 0[address]7 [place] [address] [phone] Red Blood Count 5.45 M/uL High 3.90-5.40 Hemoglobin 14.5 gm/dL N 11.6-15.8 Hematocrit 44.7 % N 36.0-46.1 Mean Cell Volume 82.0 fl N 80.9-99.0 Mean Corpuscular HGB 26.6 pg N 25.9-32.7 Mean Corpuscular HGB Conc 32.4 g/dL N 30.8-34.3 Platelet Count 269 K/uL N 150-400 Red Cell Distri Width SD 45.5 fl N 3-47 Red Cell Distri Width %CV 15.2 % High 11.7-14.4 Mean Platelet Volume 12.1 fL N 8.9-12.4 Neut% 44.9 % N 40.4-72.8 Lymph % 42.7 % High 20.0-42.0 [place] % 10.1 % N 4.3-13.2 Eo% 1.6 % N 0.0-6.6 Bas% 0.7 % N 0.0-1.1 Neut# 3.02 K/uL N 1.8-7.0 Lymph # 2.88 K/uL N 1.0-4.0 [place] # 0.68 K/uL N 0.3-0.9 Eos # 0.11 K/uL N 0.0-0.5 Baso # 0.05 K/uL N 0.0-0.1 Anticoagulant Therapy? NO Protime 09/10/2016 [facility] Protime 13.0 seconds N 12.0-14.[address] [place], [place] [id number] [phone] Inr 1.0 N 0.9-1.1 50 Anticoagulant Therapy? NO Act Partial 09/10/2016 [facility] Act Partial 32.7 seconds N 23.4-35.[address] Time [address] Thrombo Time [place], [place] [id number] [phone] Anticoagulant Therapy? NO Laboratory test 09/10/2016 [facility] Treponema Negative Negative finding [address] [place] [address] [place] [phone] Hepatitis C Antibody < 0.1 s/corat 0.0-0.9 51 Chlamydia/GC 09/10/2016 [facility] Chlamydia Negative Negative Ella, Urine [address] Trachomatis,[place] [address] -Ella [phone] Neisseria Gonorrhoeae,Ur -Ella Negative Negative 52 Laboratory 09/10/2016 [facility] HIV Screen 4TH Non Non 53 test finding [address] [place] [address] [phone] B-type 07/12/2016 N2N/CCD Import B natriuretic 63 pg/mL 0 - 100 natriuretic peptide peptide T4, free 07/12/2016 N2N/CCD Import Free T4 0.77 ng/dL 0.76 - 1.46 TSH 07/12/2016 N2N/CCD Import TSH, High 0.854 mIU/L 0.360 - Sensitivity 4.170 Alt SerPl-cCnc 07/10/2016 N2N/CCD Import Alt SerPl-cCnc 19 12-78 Ast SerPl-cCnc 07/10/2016 N2N/CCD Import Ast SerPl-cCnc 12 Low 15-37 WBC # Bld Auto 07/10/2016 N2N/CCD Import WBC # Bld Auto 7.2 3.1-10.7 Sodium 07/10/2016 N2N/CCD Import Sodium 143 136-145 SerPl-sCnc SerPl-sCnc RDW RBC 07/10/2016 N2N/CCD Import RDW RBC 13.5 11.7-14.4 Auto-Rto Auto-Rto RDW RBC Auto 07/10/2016 N2N/CCD Import RDW RBC Auto 41.3 3-47 RBC # Bld Auto 07/10/2016 N2N/CCD Import RBC # Bld Auto 5.66 High 3.90- 5.40 Prothrombin 07/10/2016 N2N/CCD Import Prothrombin 12.4 12.0-14.4 time time Prot 07/10/2016 N2N/CCD Import Prot 7.5 6.4-8.2 SerPl-mCnc SerPl-mCnc Potassium 07/10/2016 N2N/CCD Import Potassium 4.0 3.5-5.1 SerPl-sCnc SerPl-sCnc Alp SerPl-cCnc 07/10/2016 N2N/CCD Import Alp SerPl-cCnc 112 45-117 Laboratory 07/10/2016 [facility] CK 17 U/L Low 26-192 54 test finding [address] [place] [address] [phone] Troponin-I < 0.015 ng/mL 55 Thyroid Stim Hormone 5.52 uIU/mL High 0.30-4.20 Free T4 0.86 ng/dL N 0.76-1.46 Comprehensive Metabolic 07/10/2016 [facility] Glucose 91 mg/dL N 74-106 Panel [address] [place] [address] [phone] BUN 14 mg/dL N 7-18 Creatinine 0.8 mg/dL N 0.6-1.3 Glom Filtration Rate, Estimate >60 mL/min >60 If >60 mL/min >60 56 BUN/Creat 17.5 ratio Sodium 143 mmol/L N 136-145 Potassium 4.0 mmol/L N 3.5-5.1 Chloride 108 mmol/L High 98-107 Carbon Dioxide 27 mmol/L N 21-32 Anion Gap 8 mEq/L N 8-16 Calcium 9.0 mg/dL N 8.5-10.1 Total Protein 7.5 g/dL N 6.4-8.2 Albumin 3.4 g/dL N 3.4-5.0 Globulin 4.1 g/dL N 1.9-4.3 Alb/Glob 0.8 ratio Bilirubin,Total 0.2 mg/dL N 0.2-1.0 Sgot/Ast 12 U/L Low 15-37 57 SGPT/Alt 19 U/L N 12-78 Alkaline Phosphatase 112 U/L N 45-117 Protime 07/10/2016 [facility] Protime 12.4 seconds N 12.0-14.4 [address] [place] [address] [phone] Inr 0.9 N 0.9-1.1 58 CBS W/Automated Diff 07/10/2016 [facility] White Blood 7.2 K/uL N 3.1-10.[address] [place] [address] [phone] Red Blood Count 5.66 M/uL High 3.90-5.40 Hemoglobin 15.3 gm/dL N 11.6-15.8 Hematocrit 47.5 % High 36.0-46.1 Mean Cell Volume 83.9 fl N 80.9-99.0 Mean Corpuscular HGB 27.0 pg N 25.9-32.7 Mean Corpuscular HGB Conc 32.2 g/dL N 30.8-34.3 Platelet Count 316 K/uL N 150-400 Red Cell Distri Width SD 41.3 fl N 3-47 Red Cell Distri Width %CV 13.5 % N 11.7-14.4 Mean Platelet Volume 9.6 fL N 8.9-12.4 Neut% 46.4 % N 40.4-72.8 Lymph % 41.6 % N 20.0-42.0 [place] % 9.0 % N 4.3-13.2 Eo% 2.4 % N 0.0-6.6 Bas% 0.6 % N 0.0-1.1 Neut# 3.36 K/uL N 1.8-7.0 Lymph # 3.00 K/uL N 1.0-4.0 [place] # 0.65 K/uL N 0.3-0.9 Eos # 0.17 K/uL N 0.0-0.5 Baso # 0.04 K/uL N 0.0-0.1 Protime-Inr 07/10/2016 N2N/CCD Import Inr 1.00 1 Protime 10.3 s 9.2 - 11.9 CBC 07/10/2016 N2N/CCD Import Hematocrit 45.2 % 36.0 - 47.0 Hemoglobin 14.8 g/dL 12.0 - 16.0 MCH 27.0 pg 27.0 - 32.0 MCHC 32.7 g/dL 32.0 - 36.0 MCV 82.6 fL 80.0 - 95.0 MPV 8.2 fL 7.1 - 10.7 Platelets 285 10*3/uL 150 - 450 RBC 5.47 10*6/uL High 4.00 - 5.40 RDW 13.8 % 10.5 - 14.5 WBC 8.8 10*3/uL 4.1 - 11.0 BMP 07/10/2016 N2N/CCD Import Anion Gap 7 mmol/L 7 - 16 [...] Urea nitrogen 10 mg/dL 7 - 24 MCH RBC Qn Auto 07/10/2016 N2N/CCD Import MCH RBC Qn Auto 27.0 25.9- 32.7 Lymphocytes/leuk 07/10/2016 N2N/CCD Import Lymphocytes/leuk 41.6 20.0- 42.0 NFr Bld Auto NFr Bld Auto Lymphocytes # 07/10/2016 N2N/CCD Import Lymphocytes # 3.00 1.0-4.0 Bld Auto Bld Auto Hgb Bld-mCnc 07/10/2016 N2N/CCD Import Hgb Bld-mCnc 15.3 11.6-15.8 Hct VFr Bld Auto 07/10/2016 N2N/CCD Import Hct VFr Bld Auto 47.5 High 36.0-46.1 Glucose 07/10/2016 N2N/CCD Import Glucose 91 74-106 [mass/volume] in [mass/volume] in serum or plasma serum or plasma Globulin Ser 07/10/2016 N2N/CCD Import Globulin Ser 4.1 1.9-4.3 Calc-mCnc Calc-mCnc Eosinophil/leuk 07/10/2016 N2N/CCD Import Eosinophil/leuk 2.4 0.0-6.6 NFr Bld Auto NFr Bld Auto Eosinophil # Bld 07/10/2016 N2N/CCD Import Eosinophil # Bld 0.17 0.0- 0.5 Auto Auto Creat SerPl-mCnc 07/10/2016 N2N/CCD Import Creat SerPl-mCnc 0.8 0.6-1.3 Chloride 07/10/2016 N2N/CCD Import Chloride 108 High 98-107 SerPl-sCnc SerPl-sCnc Calcium 07/10/2016 N2N/CCD Import Calcium 9.0 8.5-10.1 SerPl-mCnc SerPl-mCnc Co2 SerPl-sCnc 07/10/2016 N2N/CCD Import Co2 SerPl-sCnc 27 21-32 Bil[place]ub 07/10/2016 N2N/CCD Import Bilirub 0.2 0.2-1.0 SerPl-mCnc SerPl-mCnc Basophils/leuk 07/10/2016 N2N/CCD Import Basophils/leuk 0.6 0.0-1.1 NFr Bld Auto NFr Bld Auto Basophils # Bld 07/10/2016 N2N/CCD Import Basophils # Bld 0.04 0.0-0.1 Auto Auto BUN/Creat SerPl 07/10/2016 N2N/CCD Import BUN/Creat SerPl 17.5 BUN SerPl-mCnc 07/10/2016 N2N/CCD Import BUN SerPl-mCnc 14 7-18 Anion Gap 07/10/2016 N2N/CCD Import Anion Gap 8 8-16 SerPl-sCnc SerPl-sCnc Albumin/Glob 07/10/2016 N2N/CCD Import Albumin/Glob 0.8 SerPl SerPl Albumin 07/10/2016 N2N/CCD Import Albumin 3.4 3.4-5.0 SerPl-mCnc SerPl-mCnc Platelet # Bld 07/10/2016 N2N/CCD Import Platelet # Bld 316 150-400 Auto Auto PMV Bld Auto 07/10/2016 N2N/CCD Import PMV Bld Auto 9.6 8.9-12.4 Neutrophils/leuk 07/10/2016 N2N/CCD Import Neutrophils/leuk 46.4 40.4- 72.8 NFr Bld Auto NFr Bld Auto Neutrophils # 07/10/2016 N2N/CCD Import Neutrophils # 3.36 1.8-7.0 Bld Auto Bld Auto Monocytes/leuk 07/10/2016 N2N/CCD Import Monocytes/leuk 9.0 4.3-13.2 NFr Bld Auto NFr Bld Auto Monocytes # Bld 07/10/2016 N2N/CCD Import Monocytes # Bld 0.65 0.3-0.9 Auto Auto MCV RBC Auto 07/10/2016 N2N/CCD Import MCV RBC Auto 83.9 80.9-99.0 MCHC RBC 07/10/2016 N2N/CCD Import MCHC RBC 32.2 30.8-34.3 Auto-mCnc Auto-mCnc Lymphocytes/100 07/01/2016 N2N/CCD Import Lymphocytes/100 9 Low 20-42 leukocytes in leukocytes in blood by manual blood by manual coun count Fibrin D-dimer 07/01/2016 N2N/CCD Import Fibrin D-dimer 4.40 *H Feu measurement Feu measurement in platelet poor in platelet poor pl plasma (mass/volume) Blood platelet 07/01/2016 N2N/CCD Import Blood platelet Slight adequacy adequacy Increase detection by detection by light microsc light microscopy Blood microcytes 07/01/2016 N2N/CCD Import Blood microcytes 1+ detection by detection by light microscopy light microscopy Venous blood 07/01/2016 N2N/CCD Import Venous blood 33 Low 40-60 partial pressure partial pressure of oxygen of oxygen measuremen measurement with patient temperature corrrection Venous blood 07/01/2016 N2N/CCD Import Venous blood 34 Low 45-50 partial pressure partial pressure of carbon of carbon dioxide me dioxide measurement adjusted to patients actual temperature Venous blood pH 07/01/2016 N2N/CCD Import Venous blood pH 7.40 7.25- 7.55 measurement with measurement with patient patient temperatu temperature correction Venous blood 07/01/2016 N2N/CCD Import Venous blood 65 60-80 oxygen oxygen saturation (mass saturation (mass fraction) fraction) Venous blood 07/01/2016 N2N/CCD Import Venous blood 21 bicarbonate bicarbonate measurement measurement (moles/volume (moles/volume) Venous blood 07/01/2016 N2N/CCD Import Venous blood -3 base excess by base excess by calculation calculation Unloinc 07/01/2016 N2N/CCD Import Unloinc Oxygen * Inhaled oxygen 07/01/2016 N2N/CCD Import * Inhaled oxygen 2 0-20 flow rate flow rate Venous Blood Gas 07/01/2016 [facility] Venous Blood Gas 7.40 N 7.25-7.55 59 [address] [place] [id number] [phone] Venous Blood Gas Pco2 34 mmHg Low 45-50 Venous Blood Gas Po2 33 mmHg Low 40-60 Venous Blood Gas Hco3 21 mEq/L Venous Blood Gas Base XS -3 mEq/L Venous Blood Gas OS Sat. 65 % N 60-80 Venous Blood Gas Type OXYGEN Venous Blood Gas L/Min 2 L/Min N 0-20 Monocytes/100 07/01/2016 N2N/CCD Import Monocytes/100 7 0-10 leukocytes in leukocytes in blood by manual blood by manual count count Neuts Seg/leuk 07/01/2016 N2N/CCD Import Neuts Seg/leuk 84 High 33-73 NFr Bld Manual NFr Bld Manual Total Cells 07/01/2016 N2N/CCD Import Total Cells 100 Counted Bld Counted Bld Unloinc 07/01/2016 N2N/CCD Import Unloinc Diff Ordered Eosinophil/leuk 06/11/2016 N2N/CCD Import Eosinophil/leuk 0.7 0.0-6.6 NFr Bld Auto NFr Bld Auto Eosinophil # Bld 06/11/2016 N2N/CCD Import Eosinophil # Bld 0.09 0.0- 0.5 Auto Auto Creat SerPl-mCnc 06/11/2016 N2N/CCD Import Creat SerPl-mCnc 0.9 0.6-1.3 Chloride 06/11/2016 N2N/CCD Import Chloride 106 98-107 SerPl-sCnc SerPl-sCnc Calcium 06/11/2016 N2N/CCD Import Calcium 9.4 8.5-10.1 SerPl-mCnc SerPl-mCnc Co2 SerPl-sCnc 06/11/2016 N2N/CCD Import Co2 SerPl-sCnc 22 21-32 Bilirub 06/11/2016 N2N/CCD Import Bilirub 0.4 0.2-1.0 SerPl-mCnc SerPl-mCnc Basophils/leuk 06/11/2016 N2N/CCD Import Basophils/leuk 0.2 0.0-1.1 NFr Bld Auto NFr Bld Auto Basophils # Bld 06/11/2016 N2N/CCD Import Basophils # Bld 0.03 0.0-0.1 Auto Auto BUN/Creat SerPl 06/11/2016 N2N/CCD Import BUN/Creat SerPl 14.4 BUN SerPl-mCnc 06/11/2016 N2N/CCD Import BUN SerPl-mCnc 13 7-18 Anion Gap 06/11/2016 N2N/CCD Import Anion Gap 11 8-16 SerPl-sCnc SerPl-sCnc Albumin/Glob 06/11/2016 N2N/CCD Import Albumin/Glob 1.1 SerPl SerPl Albumin 06/11/2016 N2N/CCD Import Albumin 4.2 3.4-5.0 SerPl-mCnc SerPl-mCnc Ast SerPl-cCnc 06/11/2016 N2N/CCD Import Ast SerPl-cCnc 13 Low 15-37 Alt SerPl-cCnc 06/11/2016 N2N/CCD Import Alt SerPl-cCnc 28 12-78 Alp SerPl-cCnc 06/11/2016 N2N/CCD Import Alp SerPl-cCnc 124 High 45-117 Laboratory test 06/11/2016 [facility] D-Dimer, 0.40 ug/mL 60, finding [address] Quantitative [address] [place] [address] [phone] Globulin Ser 06/11/2016 N2N/CCD Import Globulin Ser 3.7 1.9-4.3 Calc-mCnc Calc-mCnc Glucose 06/11/2016 N2N/CCD Import Glucose 98 74-106 SerPl-mCnc SerPl-mCnc Hct VFr Bld Auto 06/11/2016 N2N/CCD Import Hct VFr Bld Auto 45.6 36.0- 46. 1 Hgb Bld-mCnc 06/11/2016 N2N/CCD Import Hgb Bld-mCnc 15.4 11.6-15. 8 Lymphocytes # Bld 06/11/2016 N2N/CCD Import Lymphocytes # Bld 2.36 1.0- 4.0 Auto Auto Lymphocytes/leuk 06/11/2016 N2N/CCD Import Lymphocytes/leuk 18.6 Low 20.0 -42. NFr Bld Auto NFr Bld Auto 0 MCH RBC Qn Auto 06/11/2016 N2N/CCD Import MCH RBC Qn Auto 28.5 25.9-32. 7 MCHC RBC 06/11/2016 N2N/CCD Import MCHC RBC 33.8 30.8-34. Auto-mCnc Auto-mCnc 3 MCV RBC Auto 06/11/2016 N2N/CCD Import MCV RBC Auto 84.4 80.9-99. 0 Monocytes # Bld 06/11/2016 N2N/CCD Import Monocytes # Bld 1.10 High 0.3- 0.9 Auto Auto Monocytes/leuk 06/11/2016 N2N/CCD Import Monocytes/leuk 8.7 4.3-13.2 NFr Bld Auto NFr Bld Auto Neutrophils # Bld 06/11/2016 N2N/CCD Import Neutrophils # Bld 9.11 High 1.8-7.0 Auto Auto Neutrophils/leuk 06/11/2016 N2N/CCD Import Neutrophils/leuk 71.8 40.4- 72. NFr Bld Auto NFr Bld Auto 8 PMV Bld Auto 06/11/2016 N2N/CCD Import PMV Bld Auto 11.2 8.9-12.4 Platelet # Bld 06/11/2016 N2N/CCD Import Platelet # Bld 221 150-400 Auto Auto Potassium 06/11/2016 N2N/CCD Import Potassium 3.6 3.5-5.1 SerPl-sCnc SerPl-sCnc Prot SerPl-mCnc 06/11/2016 N2N/CCD Import Prot SerPl-mCnc 7.9 6.4-8.2 RBC # Bld Auto 06/11/2016 N2N/CCD Import RBC # Bld Auto 5.40 3.90-5.4 0 RDW RBC Auto 06/11/2016 N2N/CCD Import RDW RBC Auto 41.2 3-47 RDW RBC Auto-Rto 06/11/2016 N2N/CCD Import RDW RBC Auto-Rto 13.4 11.7- 14. 4 Serum or plasma 06/11/2016 N2N/CCD Import Serum or plasma 38 26-192 creatine kinase creatine kinase measurement measurement (enzym (enzymatic activity/volume) Sodium SerPl-sCnc 06/11/2016 N2N/CCD Import Sodium SerPl-sCnc 139 136- 145 Unloinc 06/11/2016 N2N/CCD Import Unloinc . WBC # Bld Auto 06/11/2016 N2N/CCD Import WBC # Bld Auto 12.7 High 3.1- 10.7 Fibrin D-dimer 06/11/2016 N2N/CCD Import Fibrin D-dimer 0.40 Feu measurement Feu measurement in platelet poor in platelet poor pl plasma (mass/volume) 1 G90.50 F33.1 G40.909 L02.02 2 Note: Persistent reduction for 3 months or more in an eGFR <60 mL/min/1.73 m2 defines CKD. Patients with eGFR values >/=60 mL/min/1.73 m2 may also have CKD if evidence of persistent proteinuria is present. The original MDRD equation for estimated GFR is not valid for patients less than 18 years of age. Additional information may be found at www.kdoqi.org. 3 Result confirmed by repeat analysis. 4 Elevated levels of HbA1c suggest the need for more aggressive treatment of glycemia. The [place] Diabetes Association recommends that a primary goal of therapy should be a HbA1c of <7% and that physicians should re-evaluate the treatment regimen in patients with HbA1c values consistently >8%. 5 LARGE PLATELETS PRESENT. 6 Critical Result LACT:3.6 Called to [id number] at: 14:53:50 by:[id number] Read back by:[id number] [facility] Severe Sepsis and Septic Shock Management Bundle Measure requires all lactic acids initially measuring >2.0 mmol/L be repeated. 7 Because ethnic data is not always readily [...] 15-29 5 Kidney failure <15 (or dialysis) 8 R HIP INJECTION FROM CORTIZONE INFECTION? 9 NO GROWTH: FINAL REPORT 10 NO GROWTH: FINAL REPORT 11 NO GROWTH: FINAL REPORT 12 NO GROWTH: FINAL REPORT 13 WEAKNESS 14 URTICARIA L50.8 R53.83 E03.9 E87.6 15 Values below the stated reference ranges of AST and ALT can be seen in normal populations. Clinical correlation is suggested. 16 Note: Persistent reduction for 3 months or more in an eGFR <60 mL/min/1.73 m2 defines CKD. Patients with eGFR values >/=60 mL/min/1.73 m2 may also have CKD if evidence of persistent proteinuria is present. The original MDRD equation for estimated GFR is not valid for patients less than 18 years of age. Additional information may be found at www.kdoqi.org. 17 Method: Sediplast Modified Westergren 18 Negative <1:80 Borderline 1:80 Positive >1:80 Performed at: RN - [facility] [address] [id number] Chicken Raiser: Stephanie Christie MD, Phone: [phone] 19 b34.9 20 Please Note: A POSITIVE result for influenza [...] molecular assay. Method: BD Veritor Chromatographic immunoassay 21 R50.9 22 NO BETA STREPTOCOCCI ISOLATED 23 REDRAW FOR TWO TESTS 24 Performed at: [address] [id number] Chicken Raiser: Abdelrahman Wright MD, Phone: [phone] 25 E16.2 E87.6 26 Reference Range: All Ages (fasting): 0.2 - 2.8 27 C-Peptide reference interval is for fasting patients. 28 Test not performed. Due to a specimen transport delay, the result of unusually severe weather conditions, the specimen submitted no longer meets the laboratory's criteria for acceptability. Please resubmit if clinically indicated. 29 Note: Persistent reduction for 3 months or more in an eGFR <60 mL/min/1.73 m2 defines CKD. Patients with eGFR values >/=60 mL/min/1.73 m2 may also have CKD if evidence of persistent proteinuria is present. The original MDRD equation for estimated GFR is not valid for patients less than 18 years of age. Additional information may be found at www.kdoqi.org. 30 E87.6 D51.9 31 Note: Persistent reduction for 3 months or more in an eGFR <60 mL/min/1.73 m2 defines CKD. Patients with eGFR values >/=60 mL/min/1.73 m2 may also have CKD if evidence of persistent proteinuria is present. The original MDRD equation for estimated GFR is not valid for patients less than 18 years of age. Additional information may be found at www.kdoqi.org. 32 Because ethnic data is not always readily [...] 15-29 5 Kidney failure <15 (or dialysis) 33 E87.6 34 Note: Persistent reduction for 3 months or more in an eGFR <60 mL/min/1.73 m2 defines CKD. Patients with eGFR values >/=60 mL/min/1.73 m2 may also have CKD if evidence of persistent proteinuria is present. The original MDRD equation for estimated GFR is not valid for patients less than 18 years of age. Additional information may be found at www.kdoqi.org. 35 R06.02, E87.6 36 <=0.49 ug/mL - Low likelihood of DIC, DVT or Pulmonary Embolism >0.49 ug/mL - Additional testing should be done to rule out DIC, DVT, or Pulmonary embolism as clinically indicated. ([facility] has established a 97.89% negative predictive value for thrombotic disease when a cutoff value of 0.5 ug/mL is used.) 37 Note: Persistent reduction for 3 months or more in an eGFR <60 mL/min/1.73 m2 defines CKD. Patients with eGFR values >/=60 mL/min/1.73 m2 may also have CKD if evidence of persistent proteinuria is present. The original MDRD equation for estimated GFR is not valid for patients less than 18 years of age. Additional information may be found at www.kdoqi.org. 38 AMS/LETHARGIC/RESP DISTRESS 39 Note: Persistent reduction for 3 months or more in an eGFR <60 mL/min/1.73 m2 defines CKD. Patients with eGFR values >/=60 mL/min/1.73 m2 may also have CKD if evidence of persistent proteinuria is present. The original MDRD equation for estimated GFR is not valid for patients less than 18 years of age. Additional information may be found at www.kdoqi.org. 40 CALLED ODILON Coffman R.N. IN ER WITH POTASSIUM RESULT AT 0203 03/04/17 by LAB.TOW NO SERUM TUBE RECEIVED 41 0.0 - 0.045 ng/mL: Normal 0.046 - 0.5 ng/mL: Suggestive 0.6 - 1.5 ng/mL: Consistent 42 03/04/17 0140: NEUT% previously reported as: 48.9 [...] called to: [] - 03/04/17 at 0140 43 INDICATED,SLIDE SENT Hematology Consultation Final Report Case# [id number] Final Diagnosis Review of peripheral blood smear [...] polycythemia and polycthemia vera should be done. [facility] 03/04/17 Gross Description Peripheral blood smear Clinical Data Absolute lymphocytosis and increased Hgb/HCT Cher Leonard MD Reported 03/04/2017 at 7:52PM, Report electronically signed Performed at: [facility] [id number] [place] [address] 03/05/17 0834: PATH REVIEW: previously reported as: INDICATED,SLIDE SENT Amended result called to: - 03/05/17 at 0834 44 LEGS, SWELLING, CAN'T WALK 45 <=0.49 ug/mL - Low likelihood of DIC, DVT or Pulmonary Embolism >0.49 ug/mL - Additional testing should be done to rule out DIC, DVT, or Pulmonary embolism as clinically indicated. ([facility] has established a 97.89% negative predictive value for thrombotic disease when a cutoff value of 0.5 ug/mL is used.) 46 SENT BY , BLOOD CLOT? 47 <=0.49 ug/mL - Low likelihood of DIC, DVT or Pulmonary Embolism >0.49 ug/mL - Additional testing should be done to rule out DIC, DVT, or Pulmonary embolism as clinically indicated. ([facility] has established a 97.89% negative predictive value for thrombotic disease when a cutoff value of 0.5 ug/mL is used.) 48 Negative <0.91 Equivocal 0.91 - 1.09 Positive >1.09 Performed at: [address] [id number] Chicken Raiser: Stephanie Christie MD, Phone: [phone] 49 S80.12XA Z11.3 50 THERAPEUTIC INR RANGE: 2.0 - 3.0 DVT, Pulmonary embolus, prophylaxis against venous thrombosis or systemic embolization in high risk patients. 2.5 - 3.5 Mechanical heart valves 51 INFCE Result Units: s/co ratio Negative: < 0.8 Indeterminate: 0.8 - 0.9 Positive: > 0.9 The CDC recommends that a positive HCV antibody result be followed up with a HCV Nucleic Acid Amplification test (982280). Performed at: [address] [id number] Chicken Raiser: Abdelrahman Wright MD, Phone: [phone] Performed at: [address] [id number] Chicken Raiser: Stephanie Christie MD, Phone: [phone] 52 A negative result for either C. trachomatis and/or N. gonorrhoeae does not preclued an infection because results are dependent on adequate specimen collection, absence of inhibitors, and sufficient DNA to be detected. 53 Performed at: [address] [id number] Chicken Raiser: Stephanie Christie MD, Phone: [phone] [address] CABALLERO,RT SIDE ABD PAIN,HEART SURGERY 06/30 55 0.0 - 0.045 ng/mL: Normal 0.046 - 0.5 ng/mL: Suggestive 0.6 - 1.5 ng/mL: Consistent 56 Note: Persistent reduction for 3 months or more in an eGFR <60 mL/min/1.73 m2 defines CKD. Patients with eGFR values >/=60 mL/min/1.73 m2 may also have CKD if evidence of persistent proteinuria is present. The original MDRD equation for estimated GFR is not valid for patients less than 18 years of age. Additional information may be found at www.kdoqi.org. 57 Values below the stated reference ranges of AST and ALT can be seen in normal populations. Clinical correlation is suggested. 58 THERAPEUTIC INR RANGE: 2.0 - 3.0 DVT, Pulmonary embolus, prophylaxis against venous thrombosis or systemic embolization in high risk patients. 2.5 - 3.5 Mechanical heart valves 59 GEN WEAKNESS 60 SOB,CP,POSS PNEUMONIA 61 <=0.49 ug/mL - Low likelihood of DIC, DVT or Pulmonary Embolism >0.49 ug/mL - Additional testing should be done to rule out DIC, DVT, or Pulmonary embolism as clinically indicated. ([facility] has established a 97.89% negative predictive value for thrombotic disease when a cutoff value of 0.5 ug/mL is used.) Procedures Date Code Description Status 07/13/2018 47718 Radiology, Ankle Complete Completed 06/29/2018 06233 Brief Emotional/Behav Assessment W/ Scoring Doc Per Completed Standard Inst 02/24/2018 55279 EKG-Tracing And Report Completed 02/19/2018 80294 Refraction Completed 02/19/2018 04742 Eye Exam New Patient Comprehensive Completed 08/05/2017 96657 Radiologic Exam Hip Unilateral With Pelvis 2-3 Views Completed 06/02/2017 10540 Pulse Oximetry Completed 03/18/2017 58823 EKG-Tracing And Report Completed 08/13/2016 19142 Bronchospasm Provocation Evaluation Multi Spirometric Completed Determinati 08/13/2016 18611 Spirometry Completed 08/13/2016 83988 Echocardiogram Complete Completed 07/22/2016 57407 EKG-Tracing And Report Completed 04/21/2016 81528134 Mammogram Completed 08/28/2012 14938 Echocardiogram Complete Completed 08/28/2012 72596 Event Monitor Inter/Review Only Completed 09/21/2008 81702 Holter Monitor 24HR Inter/Report Completed Encounters Type Date Location Provider Dx Diagnosis Office Visit 08/20/2018 Family Medicine Ledy Spann, G90.50 Complex regional 11:[address]a [address] PNP-BC, [employer], pain syndrome I, Ibclc unspecified F33.1 Major depressive disorder, recurrent, moderate M79.7 Fibromyalgia G40.909 Epilepsy, unsp, not intractable, without status epilepticus F41.9 Anxiety disorder, unspecified L30.9 Dermatitis, unspecified L02.02 Furuncle of face Office Visit 07/13/2018 2:00p [facility] [place], M25.571 Pain in right MD ankle and joints of right foot M76.61 Achilles tendinitis, right leg Office Visit 06/29/2018 11:30a Family Ledy May, G90.[address] PNP-BC, [employer], pain syndrome I, Ibclc unspecified M25.551 Pain in right hip M79.7 Fibromyalgia F33.1 Major depressive disorder, recurrent, moderate Office Visit 03/16/2018 4:15p Family Ledy May, M62.830 Muscle spasm [address] VIVIENNE PNP-BC, [employer]IAN, of back Ibclc F41.9 Anxiety disorder, unspecified 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 Office Visit 02/10/2018 4:30p Family Medicine Maria Ines, Z01.818 Encounter for other Omer Villafana, preprocedural PNP-BC, [employer], examination Ibclc N63.20 Unspecified lump in the left breast, unspecified quadrant Office Visit 01/16/2018 2:30p Family Medicine Margy Ventura, H81.42 Vertigo of Omer PALAFOX MD central origin, left ear L30.9 Dermatitis, unspecified H53.8 Other visual disturbances Office Visit 11/05/2017 9:30a Family Medicine Ledy Spann, F33.[address] PNP-BC, [employer]CH[employer]ICIAN, disorder, Ibclc recurrent, moderate M79.7 Fibromyalgia G90.50 Complex regional pain syndrome I, unspecified F41.9 Anxiety disorder, unspecified Office Visit 10/01/2017 3:45p Family Medicine Raya Caballero, L50.8 Other urticaria Omer PALAFOX M.D. 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 Office Visit 08/18/2017 11:00a Orthopaedic Office Chichi Turk M25.551 Pain in S., RPAC right hip M25.851 Other specified joint disorders, right hip Office Visit 08/06/2017 10:15a Family Medicine Ledy Spann, L50.[address] JIN-BC, [employer]CH[employer]ICIAN, Ibclc F41.9 Anxiety disorder, unspecified F33.1 Major depressive disorder, recurrent, moderate M79.7 Fibromyalgia Office Visit 08/05/2017 1:15p Orthopaedic Office Chichi Turk M25.551 Pain in S., RPAC right hip M16.11 Unilateral primary osteoarthritis, right hip Office Visit 07/09/2017 4:30p Family Raya Amador, L50.[address] M.D. Office Visit 06/17/2017 1:30p Family Medicine Raya Caballero, B34.9 Viral infection, [address] RD M.D. unspecified Office Visit 06/10/2017 8:45a Family Raya Amador, J15.[address] M.D. bacterial pneumonia Office Visit 06/02/2017 1:45p Family Medicine Maria Ines, R50.9 Fever, unspecified [address] JIN Villafana-BC, [employer]CH[employer]IAN, Ibclc Office Visit 05/14/2017 4:45p Family Medicine Raya Caballero, Z01.818 Encounter for other [address] RD M.D. preprocedural examination G47.30 Sleep apnea, unspecified R60.0 Localized edema Office Visit 04/23/2017 4:30p Family Raya Amador M.D. E87.[address] E16.2 Hypoglycemia, unspecified M25.551 Pain in right hip Office Visit 03/25/2017 11:00a Family Raya Amador E87.[address] M.D. Office Visit 03/20/2017 4:45p [facility] Raya Caballero, E87.[address] M.D. Office Visit 03/18/2017 11:30a [facility] Raya Caballero, R06.[address] M.D. breath E87.6 Hypokalemia R00.0 Tachycardia, unspecified Office Visit 01/13/2017 3:00p [facility] Medicine Margy Ventura, K59.03 Drug induced West VIVIENNE GUEVARA constipation Office Visit 12/12/2016 4:00p [facility] Raya Caballero, F41.9 Anxiety disorder, [address] RD M.D. unspecified K59.00 Constipation, unspecified M25.561 Pain in right knee Office Visit 09/10/2016 3:30p [facility] Raya Caballero, S80.12xA Contusion of [address] M.D. left lower leg, initial encounter R06.02 Shortness of breath F41.9 Anxiety disorder, unspecified Z11.3 Encntr screen for infections w sexl mode of transmiss Office Visit 07/22/2016 2:00p Cardiology Office Huseyin Ware R06.02 Shortness of M., M.D., [facility] breath I32 Pericarditis in diseases classified elsewhere Office Visit 07/16/2016 10:30a [facility] Medicine Raya Caballero, R06.[address] M.D. breath Office Visit 07/10/2016 9:30a [facility] Raya Caballero, R06.[address] M.D. breath Office Visit 06/28/2016 10:30a [facility] Medicine Raya Caballero, R06.[address] M[address]D. breath Office Visit 06/18/2016 11:30a [facility] Raya Caballero, F33.[address] M.D. disorder, recurrent, moderate F41.9 Anxiety disorder, unspecified J45.20 Mild intermittent asthma, uncomplicated Office Visit 04/05/2016 10:15a [facility] Medicine Raya Caballero, F33.[address] M.D. disorder, recurrent, moderate F41.9 Anxiety disorder, unspecified G47.00 Insomnia, unspecified Office Visit 03/19/2016 11:45a [facility] Medicine Raya Caballero, F41.9 Anxiety disorder, [place] unspecified F33.1 Major depressive disorder, recurrent, moderate G47.00 Insomnia, unspecified B37.2 Candidiasis of skin and nail Office Visit 03/05/2016 10:45a [facility] Raya Caballero, F41.9 Anxiety disorder, [facility] [place] unspecified G40.909 Epilepsy, unsp, not intractable, without status epilepticus M54.5 Low back pain M79.7 Fibromyalgia Plan of Treatment Future Appointment(s):09/23/2018 10:30 am - Ledy Spann PNP-BC, [employer] TECHNICIAN, [facility]08/20/2018 - Ledy Spann PNP-BC, [employer] TECH[employer]ICIAN, LvgqwD38.50 Complex regional pain syndrome I, lynljnclbzcD79.1 Major depressive disorder, recurrent, ctgafmxeU79.7 SiebqelphlbaG77.909 Epilepsy, unspecified, not intractable, without status nqeavM18.9 Anxiety disorder, unspecifiedNew Medication:Buspirone HCL 5 mg - 1 by mouth four times a day as neededFollow up: 1 jszxlN30.9 Dermatitis, unspecifiedNew Medication:Flac 0.01 % - 1-2 drops in left ear bid as ygkufvT63.02 Furuncle of faceNew Medication:Silver Sulfadiazine 1 % - apply twice a day to forehead
[2018-09-10 16:08] VITALS: BP 116/81
== END 2018-09-10 16:16 | disposition short-term general hospital (02) ==
LOC: UCCORT 15:41
DX: R10.13 Epigastric pain (principal)
CPT/HCPCS: 93005; 99213; G0463

== ENCOUNTER → 2018-09-10 17:18 | Emergency (ER) | payer MEDICARE, MEDICAID ==
[~2018-09-10 17:18] MED LIST: Famotidine IV* 10 MG/ML 2 ML (20 mg) IV ONE; Iohexol 300* (CONTRAST) 10 ML SDV IV ONE; NS 0.9% 1000 ML** 1,000 ML IV ONE
--- NOTE | 2018-09-10 18:19 | ED ---
Abdominal Pain/Female - HPI Summary HPI Summary: The patient is a 42 y/o F presenting to [facility] accompanied by with a chief complaint of gradual onset diffuse abd burning starting a few days ago with worsening of symptoms today. She states she hasn't been feeling well all over, but primarily in the abd. Today her symptoms have worsened as she became so fatigued that she could barely keep her eyes open or move. She additionally c /o nausea, burning CP, dizziness, lightheadedness, cough, and darker stool. She denies vomiting, hematochezia, and melena. Hx of pericardial effusion in 2016. No hx of HTN, HLD, or DM. Fhx of DM, HTN, and cardiac problems. Nonsmoker, no EtOH, no substance use. - History of Current Complaint Chief Complaint: EDAbdPain Stated Complaint: "ABDOMINAL PAIN PER EMS" Time Seen by Provider: 09/10/18 17:59 Hx Obtained From: Patient Onset/Duration: Gradual Onset, Lasting Days, Still Present, Worse Since - today Timing: Days Severity Initially: Mild Severity Currently: Moderate Pain Intensity: 0 Pain Scale Used: 0-10 Numeric Location: Diffuse Radiates: No Character: Burning Aggravating Factor(s): Nothing Alleviating Factor(s): Nothing Associated Signs and Symptoms: Positive: Cough, Chest Pain - burning, Dizzy, Nausea, Other: - POSITIVE: fatigue, lightheaded, dark stool; NEGATIVE: melena, hematochezia. Negative: Vomiting Allergies/Adverse Reactions: Allergies Allergy/AdvReac Type Severity Reaction Status Date / Time bupropion [From Wellbutrin] Allergy Hives Verified 09/10/18 15:55 ibuprofen Allergy Unknown Verified 09/10/18 15:55 Reaction Details Penicillins Allergy Unknown Verified 09/10/18 15:55 Reaction Details Sulfa (Sulfonamide Allergy Unknown Verified 09/10/18 15:55 Antibiotics) Reaction Details "a ton of 'em [foods]" Allergy Unknown Uncoded 09/10/18 15:55 Reaction Details Home Medications: Home Medications EPINEPHrine [Epipen 2-Danielito] 0.3 mg IM ONCE PRN 09/10/18 [History Confirmed ] Fluocinolone Acetonide Oil [Flac Otic Oil] 1 - 2 drop LEFT EAR BID PRN 09/10/18 [History Confirmed 09/10/18] Topiramate TAB(*) [Topamax 100 mg tab] 100 mg PO QAM 09/10/18 [History Confirmed 09/10/18] Topiramate TAB(*) [Topamax 100 mg tab] 200 mg PO BEDTIME 09/10/18 [History Confirmed 09/10/18] Venlafaxine TAB (NF) [Effexor TAB (NF)] 150 mg PO BID 09/10/18 [History Confirmed 09/10/18] PMH/Surg Hx/FS Hx/Imm Hx Endocrine/Hematology History: Denies: Hx Diabetes Cardiovascular History: Denies: Hx Hypercholesterolemia, Hx Hypertension Respiratory History: Reports: Hx Asthma History: Denies: Hx Dialysis, Hx Renal Disease Sensory History: Denies: Hx Legally Blind, Hx Deafness Opthamlomology History: Denies: Hx Legally Blind - Cancer History Cancer Type, Location and Year: None reported - Surgical History Surgery Procedure, Year, and Place: Hysterectomy, bi- eye muscles, L ankle, T & A, hiatal hernia. surgery for pericardial effusion. breast lift and tummy tuck Infectious Disease History: No Infectious Disease History: Denies: Traveled Outside the [place] in Last 30 Days - Family History Known Family History: Positive: Cardiac Disease - grandparents, Hypertension - grandparents, Diabetes - sister - Social History Alcohol Use: None Hx Substance Use: Yes Substance Use Type: Reports: Prescribed Hx Tobacco Use: No Smoking Status (MU): Never Smoked Tobacco Do You Chew or Dip Tobacco: No Have You Chewed or Dipped Tobacco in the LAST YEAR: No Have You Smoked in the Last Year: No Review of Systems Positive: Fatigue Positive: Chest Pain - burning Positive: Cough Positive: Abdominal Pain - diffuse burning, Nausea, Other - POSITIVE: darker stools; NEGATIVE: hematochezia, melena. Negative: Vomiting Neurological: Other - dizzy, lightheaded All Other Systems Reviewed And Are Negative: Yes Physical Exam - Summary Physical Exam Summary: VITAL SIGNS: Reviewed. GENERAL: Patient is a well-developed and nourished female who is lying comfortable in the stretcher. Patient is not in any acute respiratory distress. HEAD AND FACE: Normocephalic and atraumatic. EYES: PERRLA, EOMI x 2, No injected conjunctiva. EARS: Hearing grossly intact. Ear canals and tympanic membranes are WNL. MOUTH: Oropharynx within normal limits. NECK: Supple, trachea is midline, no adenopathy, no JVD. CHEST: Symmetric, no tenderness at palpation LUNGS: Clear to auscultation bilaterally. No wheezing or crackles. CVS: RRR, S1 and S2 present, no murmurs or gallops appreciated. ABDOMEN: Soft, diffuse LUQ pain but worst in epigastric. No signs of distention. Positive bowel sounds. No rebound no guarding, and no masses palpated. No abdominal bruit or pulsations. EXTREMITIES: FROM in all major joints, no edema, no cyanosis or clubbing. NEURO: Alert and oriented x 3. No acute neurological deficits. Speech is normal. SKIN: Dry and warm. Triage Information Reviewed: Yes Vital Signs On Initial Exam: Initial Vitals Temp Pulse Resp BP Pulse Ox 97.8 F 84 20 118/78 99 09/10/18 17:27 09/10/18 17:27 09/10/18 17:27 09/10/18 17:27 09/10/18 17:27 Vital Signs Reviewed: Yes Diagnostics - Vital Signs Vital Signs Temp Pulse Resp BP Pulse Ox 09/10/18 17:27 97.8 F 84 20 118/78 99 - Laboratory Result Diagrams: 09/10/18 18:37 09/10/18 18:38 Lab Statement: Any lab studies that have been ordered have been reviewed, and results considered in the medical decision making process. - CT Abd/Pel CT CT Interpretation Completed By: Radiologist Summary of CT Findings: 1. There is increased size of small hiatal hernia. 2. No other acute CT pathology. ED physician has reviewed this report. Re-Evaluation - Re-Evaluation First Eval Re-Evaluation Time: 20:40 Change: Improved Comment: I spoke with the patient concerning results and discharge home. Abdominal Pain Fem Course/Dx - Course Course Of Treatment: The patient is a 42 y/o F presenting to [facility] accompanied by with a chief complaint of gradual onset diffuse abd burning starting a few days ago with worsening of symptoms today. She states she hasn't been feeling well all over, but primarily in the abd. Today her symptoms have worsened as she became so fatigued that she could barely keep her eyes open or move. She additionally c/o nausea, burning CP, dizziness, lightheadedness, cough , and darker stool. She denies vomiting, hematochezia, and melena. Hx of pericardial effusion in 2016. No hx of HTN, HLD, or DM. Fhx of DM, HTN, and cardiac problems. Nonsmoker, no EtOH, no substance use. Blood work without any significant abnormality except for WBCs of 13.6, glucose of 104, alkaline phosphatase of 112, and CRP of 16.6. In the ED course, the patient was given IV fluids, Pepcid, and a GI cocktail. Abdominal pelvic CT impression: increased size of the bilateral hernia. No acute CT pathology. Therefore, since the vital signs are stable and blood work is found to be without any significant abnormality, the symptoms are probably secondary to the increased size of small hiatal hernia. Therefore, the patient will be given a prescription for Protonix and discharged home with follow-up with PCP. I discussed all the findings and test results with the patient. Patient was instructed to return to the emergency room immediately if any of the symptoms return worsens. Plan of care was discussed with the patient and understands and agrees. All questions were answered at patient satisfaction. There were no further complaints or concerns. Lung exam before discharge: CTA B/L. Good air exchange. No wheezing or crackles heard. CVS: S1 and S2 present. No murmurs appreciated. Patient is alert and oriented x 3. Patient is hemodynamically stable. Patient will be discharged home with follow up PCP in the next 2-3 days. - Diagnoses Provider Diagnoses: Epigastric pain, Hiatal hernia Discharge - Sign-Out/Discharge Documenting (check all that apply): Patient Departure - Patient will be discharged home. Patient Received Moderate/Deep Sedation with Procedure: No - Discharge Plan Condition: Stable Disposition: HOME Prescriptions: Pantoprazole TAB * [Protonix TAB*] 40 mg PO DAILY #14 tab Patient Education Materials: Hiatal Hernia (DC), Epigastric Pain (ED) Referrals: Ledy Spann NP [Primary Care Provider] - 3 Days Additional Instructions: Please take medication as prescribed. FOLLOW UP WITH YOUR PRIMARY CARE PROVIDER WITHIN ONE WEEK. RETURN TO THE ED FOR ANY WORSENING OR NEW SYMPTOMS. - Billing Disposition and Condition Condition: STABLE Disposition: Home - Attestation Statements Document Initiated by Scribe: Yes Documenting Scribe: Arabella Snell Provider For Whom Amadore is Documenting (Include Credential): Dr. Amador Pinto MD Scribe Attestation: IArabella, scribed for Dr. Amador Pinto MD on 09/10/18 at 2204. Scribe Documentation Reviewed: Yes Provider Attestation: The documentation as recorded by the scribe, Arabella Snell accurately reflects the service I personally performed and the decisions made by me, Dr. Amador Pinto MD Status of Scribe Document: Viewed
[2018-09-10 18:46] LABS: ABS Basophils 0.1 10^3/ul (0-0.2); ABS Lymphocytes 2.3 10^3/ul (1.0-4.8); ABS Monocytes 0.7 10^3/ul (0-0.8); ABS Neutrophils 10.5 10^3/ul (1.5-7.7); Eosinophil % 0.1 %; Hematocrit 43 % (35-47); Hemoglobin 14.3 g/dL (12.0-16.0); Lymphocyte % 16.9 %; Mean Corpuscular HGB Conc 33 g/dL (31-36); Mean Corpuscular Hemoglobin 28 pg (27-31); Mean Corpuscular Volume 84 fL (80-97); Mean Platelet Volume 8.5 fL (7.4-10.4); Platelet Count 231 10^3/uL (150-450); Red Blood Count 5.14 10^6 /uL (3.70-4.87); Red Cell Distribution Width 14 % (10.5-15); White Blood Count 13.6 10^3/uL (3.5-10.8)
[2018-09-10 19:09] LABS: ALT 16 U/L (7-52); Albumin 4.6 g/dL (3.2-5.2); Albumin/Globulin Ratio 1.4 (1-3); Alkaline Phosphatase 112 U/L (34-104); BUN/Creatinine Ratio 11.9 (8-20); Blood Urea Nitrogen 10 mg/dL (6-24); C Reactive Protein 16.69 mg/L (<8.01); CO2 Carbon Dioxide 23 mmol/L (22-32); Calcium 9.7 mg/dL (8.6-10.3); Chloride 109 mmol/L (101-111); EGFR African American 89.5 (>60); Globulin 3.2 g/dL (2-4); Glucose 104 mg/dL (70-100); Sodium 139 mmol/L (135-145); Total Protein 7.8 g/dL (6.4-8.9)
[2018-09-10 19:14] LABS: HCG Pregnancy 1.01 mIU/mL
[2018-09-10] MEDS: Al Hydrox/Mg Hydrox/Simet LIQ* 30 ML UDC PO ONE ×2 (20:02→20:05)
[2018-09-10] MEDS: Lidocaine 2% VISCOUS* 15 ML UDC PO ONE ×2 (20:02→20:05)
[2018-09-10 20:12] LABS: AST 15 U/L (13-39); Anion Gap 7 mmol/L (2-11); Potassium 3.8 mmol/L (3.5-5.0)
[2018-09-10 22:02] VITALS: BP 115/79
== END | disposition home or self-care (01) ==
LOC: ED 17:18
DX: K44.9 Diaphragmatic hernia without obstruction or gangrene (principal); R10.13 Epigastric pain; J45.909 Unspecified asthma, uncomplicated; Z88.6 Allergy status to analgesic agent; Z88.0 Allergy status to penicillin; Z79.899 Other long term (current) drug therapy
CPT/HCPCS: 36415; 74177; 80053; 83605; 83690; 84702; 85025; 86140; 96361; 96374; 99283; A9270-GY; Q9967